=== PATIENT | male | born 1950 | race Caucasian/White ===

== ENCOUNTER 2019-04-17 01:26 | Day surgery (SDC) | payer MEDICARE, SELFPAY ==
[2019-04-17] VITALS (7 sets, daily range): BP systolic 110–191; BP diastolic 62–79; PULSE 57–65; RESP 12–18; TEMP 36.8–37.1; O2SAT 96–99; BMI 32.8
--- NOTE | 2019-04-17 09:14 | SUR.PREOP ---
[id number] Patient arrives with spouse for RASHI with Anesthesia with Dr. Portillo. Oriented to unit, procedure explained, questions answered. Vs obtained, IV started, labs sent, consent signed. Will monitor.
[2019-04-17 09:28] LABS: Hematocrit 43.1 % (42.0-52.0); Hemoglobin 14.1 g/dL (14.0-18.0); Mean Corpuscular HGB Conc 32.7 g/dl (32-36); Mean Corpuscular Volume 88.5 fl (80-100); Mean Platelet Volume 10.2 fl (7.4-10.4); Platelet Count Result 213 k/mm3 (150-375); Red Blood Count 4.87 M/mm3 (4.6-6.20); Red Cell Distribution Width 13.3 % (11.5-14.5); White Blood Count 6.4 K/mm3 (4.5-10.0)
[2019-04-17 09:38] LABS: INR 0.9; Prothrombin Time 12.3 Seconds (11.1-14.7)
[2019-04-17 09:42] LABS: Blood Urea Nitrogen 14 mg/dL (9-20); Calcium 9.2 mg/dL (8.4-10.2); Carbon Dioxide 25 mmol/L (22-30); Chloride 102 mmol/L (98-107); Estimated Glomerular Filt Rate > 60; Glucose 91 mg/dL (75-110); Potassium 3.9 mmol/L (3.4-5.0); Sodium 137 mmol/L (137-145)
--- NOTE | 2019-04-17 09:42 | WPDANESEPPF ---
Anes - Initial Pre Proc Eval Procedure: Operation Date: 04/17/19 08:30 Proposed Procedures p Trans Esophageal Echo - Agustin Portillo MD Date/Time: 04/17/19 09:42 Surgeon: Agustin Portillo MD Pre Op Diagnosis: Aortic stenosis Patient Data Age: 69 Gender: M Height: Weight: Allergies Allergy/AdvReac Type Severity Reaction Status Date / Time clidinium AdvReac Hallucinati Verified 04/03/19 12:16 [From Librax (with ng clidinium)] niacin AdvReac Other Verified 04/03/19 12:16 Pwmiayr-Frj-Pnj Reductase AdvReac Muscle Pain Verified 04/16/19 11:39 Inhibitor Home Medications Medication Instructions Recorded Confirmed Type aspirin 81 mg tablet,delayed 81 mg PO DAILY 01/23/19 04/16/19 History release loratadine 10 mg capsule 10 mg PO DAILY 01/23/19 04/16/19 History doxycycline hyclate 100 mg capsule 100 mg PO BID #60 cap 03/21/19 04/16/19 Rx icosapent ethyl 1 gram capsule 2 gm PO BID 04/01/19 04/16/19 History lisinopril 10 mg tablet 10 mg PO DAILY 04/01/19 04/16/19 History metoprolol tartrate 25 mg tablet 12.5 mg PO BID tablet 04/01/19 04/16/19 History levothyroxine 50 mcg tablet See Rx Instructions PO .COMPLEX 04/03/19 04/16/19 History evolocumab [Repatha SureClick] 140 mg SUBCUT [id number] 04/16/19 04/16/19 History finasteride 5 mg PO DAILY 04/16/19 04/16/19 History lutein 20 mg PO DAILY 04/16/19 04/16/19 History Laboratory Tests 04/17/19 04/17/19 04/17/19 09:23 09:23 09:23 WBC 6.4 K/mm3 K/mm3 (4.5-10.0) RBC 4.87 M/mm3 M/mm3 (4.6-6.20) Hgb 14.1 g/dL g/dL (14.0-18.0) Hct 43.1 % % (42.0-52.0) MCV 88.5 fl fl (80-100) MCH 29.0 pg pg (26-34) MCHC 32.7 g/dl g/dl (32-36) RDW 13.3 % % (11.5-14.5) Plt Count 213 k/mm3 k/mm3 (150-375) MPV 10.2 fl fl (7.4-10.4) PT 12.3 Seconds Seconds (11.1-14.7) INR 0.9 Sodium Pending Potassium Pending Chloride Pending Carbon Dioxide Pending BUN Pending Creatinine Pending Estim Creat Clear Calc Pending Estimated GFR Pending Glucose Pending Calcium Pending Patient hx anesthesia problems: none Family hx anesthesia problems: none PMFSH Past Medical History Medical History (Updated 04/17/19 @ 09:46 by Santiago Christiansen MD) FLORENCE-inhibitor cough Acne rosacea Anxiety Aortic valve stenosis 1.2 cm2 Atherosclerotic heart disease of [place] coronary artery without angina pectoris BPH (benign prostatic hyperplasia) CAD (coronary artery disease) History of actinic keratoses History of seborrheic keratosis Hypercholesterolemia Hypertension, essential, benign Hypothyroidism Sleep apnea wears CPAP Surgical History Surgical History (Updated 04/17/19 @ 09:46 by Santiago Christiansen MD) Hx of cardiac catheterization S/P CABG (coronary artery bypass graft) Social History Social History Smoking status: Former smoker Second hand tobacco smoke exposure: No Smoking end date: 03/14/01 Alcohol intake: never Gender identity (if verbalized by the patient): Male Anes - Eval Final PreProcedure Day of Procedure 04/17/19 09:42 Patient weight: obese Heart: regular rate and rhythm Lungs: clear to auscultation and normal air movement Airway: Mallampati scale class II Neurological: alert and oriented Last oral intake: >/= 8 hours ASA classification: IV Emergent: no Anesthetic plan: proceed Anesthesia type and monitoring: general GIVS Informed Consent: The patient's anesthetic plan and its attendant risks and benefits were discussed with the patient/family/POA. Questions were solicited and answers provided to the satisfaction of the patient/family/POA.
--- NOTE | 2019-04-17 10:29 | WPDMODSED ---
Moderate Sedation Note-Pt Data Patient Data Diagnosis: Aortic stenosis Present Complaint: Aortic stenosis Procedure to be performed/Plan: Multiplanar transesophageal echocardiography with pulse wave and color flow Doppler Allergies Allergy/AdvReac Type Severity Reaction Status Date / Time clidinium AdvReac Hallucinati Verified 04/17/19 09:51 [From Librax (with ng clidinium)] niacin AdvReac Other Verified 04/17/19 09:51 Vrnhjxl-Oeq-Jpv Reductase AdvReac Muscle Pain Verified 04/17/19 09:51 Inhibitor Home Medications Medication Instructions Recorded Confirmed Type aspirin 81 mg tablet,delayed 81 mg PO DAILY 01/23/19 04/16/19 History release loratadine 10 mg capsule 10 mg PO DAILY 01/23/19 04/16/19 History doxycycline hyclate 100 mg capsule 100 mg PO BID #60 cap 03/21/19 04/16/19 Rx icosapent ethyl 1 gram capsule 2 gm PO BID 04/01/19 04/16/19 History lisinopril 10 mg tablet 10 mg PO DAILY 04/01/19 04/16/19 History metoprolol tartrate 25 mg tablet 12.5 mg PO BID tablet 04/01/19 04/16/19 History levothyroxine 50 mcg tablet See Rx Instructions PO .COMPLEX 04/03/19 04/16/19 History evolocumab [Repharsha Keith] 140 mg SUBCUT [id number] 04/16/19 04/16/19 History finasteride 5 mg PO DAILY 04/16/19 04/16/19 History lutein 20 mg PO DAILY 04/16/19 04/16/19 History Current Medications: Active Medications Fentanyl Citrate (Sublimaze) 25 mcg IV PUSH Q2M PRN PRN Reason: Pain Lactated Ringer's (Lr - Lactated Ringers Iv) 1,000 mls @ 30 mls/hr IV CONT .Q24H SACHIN Lactated Ringer's (Lr - Lactated Ringers Iv) 1,000 mls @ 30 mls/hr IV CONT .Q24H SACHIN Ondansetron HCl (Zofran Inj) 4 mg IV PUSH ONCE PRN PRN Reason: Nausea Sedation/Anesthesia: No previous sedation/anesthesia problems (including family history). [facility]LY [facility], [facility] Past Medical History Medical History FLORENCE-inhibitor cough Acne rosacea Anxiety Aortic valve stenosis 1.2 cm2 Atherosclerotic heart disease of [place] coronary artery without angina pectoris BPH (benign prostatic hyperplasia) CAD (coronary artery disease) History of actinic keratoses History of seborrheic keratosis Hypercholesterolemia Hypertension, essential, benign Hypothyroidism Sleep apnea wears CPAP Surgical History Surgical History Hx of cardiac catheterization S/P CABG (coronary artery bypass graft) Social History Social History Smoking status: Former smoker Second hand tobacco smoke exposure: No Smoking end date: 03/14/01 Alcohol intake: never Gender identity (if verbalized by the patient): Male Mod Sed Physical Exam Physical Exam Pre Procedural Exam: Normal: Appearance, Eyes, Ears, Nose, Neck, Throat, Airway, Lungs, Heart Size, Heart Rate, Heart Rhythm, Neuro Exam, Extremities and Skin Hours since solid foods: 12 Hours since liquid intake: 12 Internal Medicine - PN: Obj Da Vital Signs Vital Signs: Vital Signs - 24 hr 04/17/19 09:15 Temperature 37.1 C Pulse Rate 65 Respiratory Rate 18 Blood Pressure 191/67 H Pulse Oximetry 99 Meds/Results Medications: Active Medications Generic Name Dose Route Start Last Admin Trade Name Safia PRN Reason Stop Dose Admin Fentanyl Citrate 25 mcg 04/17/19 09:47 Sublimaze IV PUSH Q2M PRN Pain Lactated Ringer's 1,000 mls @ 30 mls/hr 04/17/19 09:50 Lr - Lactated Ringers Iv IV CONT .Q24H SACHIN Lactated Ringer's 1,000 mls @ 30 mls/hr 04/17/19 09:50 Lr - Lactated Ringers Iv IV CONT .Q24H SACHIN Ondansetron HCl 4 mg 04/17/19 09:47 Zofran Inj IV PUSH ONCE PRN Nausea Labs CBC & Chem 7: 04/17/19 09:23 04/17/19 09:23 Labs: Laboratory Results - last 24 hr 04/17/19 04/17/19 04/17/19 09:23 09:23 09:23 WBC 6.4 RBC 4.87 Hgb 14.1 Hct 43.1 MCV 88.5 MCH 29.0 MCH
--- NOTE | 2019-04-17 10:55 | WPDTEECHO ---
RASHI TransEsophageal Echocardiogram Date of procedure: 04/17/19 Procedure Type: Date of service: 04/17/2019 Multiplanar transesophageal echocardiography with color flow Doppler Agitated saline study Diagnosis: Aortic stenosis Indications: Aortic stenosis Image Quality: Good After discussing the risks benefits and alternatives of the procedure the patient agreeable via verbal and written informed consent. Risks discussed included esophageal rupture perforation, , adverse reaction to anesthesia, bleeding, pain, infection, sore throat. Anesthesia was provided by the Anesthesia Department. Procedure start time 10:39 a.m. Procedure stop time 10:49 a.m. Complications: None Blood loss: None Findings: Normal left ventricular size and function. Normal right ventricular size and function. Moderate left atrial enlargement. Mild mitral regurgitation with mild mitral annular calcification. Tricuspid valve is normal with mild tricuspid regurgitation. Pulmonic valve is not well visualized. Aortic root is measured 3.2 cm. There is no pericardial effusion. Mild atherosclerotic disease is seen within the aorta itself. Atrial septum is intact without color flow or agitated saline evidence of shunting. The aortic valve is trileaflet and moderately calcified. Partial fusion of the non coronary cusp to the left coronary cusp. Averaged planimetered aortic valve area of 1.2 centimeter squared. Trace to mild aortic insufficiency. Conclusions: 1. Normal left ventricular size and function 2. Moderate left atrial enlargement Three mild mitral regurgitation 4. Mild tricuspid regurgitation 5. Moderate aortic stenosis with planimetered aortic valve area 1.2 centimeters squared 6. Intact atrial septum with normal agitated saline study
--- NOTE | 2019-04-17 11:15 | SUR.PHASEII ---
RETURNED TO [facility] S/P RASHI W/ ANESTHESIA W/ DR. ROMAN. PHASE II WAS STARTED WHILE IN PACU, CONTINUES AT THIS TIME IN [facility]. AWAKE, ALERT, SLIGHTLY DROWSY. DENIES PAIN OR SOB. ON ROOM AIR. AT BEDSIDE. DR. ROMAN HAS BEEN BY TO UPDATE . WILL CONTINUE TO MONITOR.
--- NOTE | 2019-04-17 11:40 | SUR.PHASEII ---
FULLY AWAKE AND ALERT. VSS. REPORTS NO DIFFICULTY SWALLOWING SALIVA AND NO NUMBNESS IN MOUTH OR THROAT. ICE CHIPS AND SIPS GIVEN; TAKEN WITHOUT DIFFICULTY.
--- NOTE | 2019-04-17 12:25 | SUR.PREOP ---
HAS EATEN JELLO AND PUDDING WITHOUT DIFFICULTY. DR. ROMAN HERE TO SEE PT AND . OK'D FOR DISCHARGE HOME.
--- NOTE | 2019-04-17 12:55 | SUR.PHASEII ---
IV SITE HAS BEEN DISCONTINUED AND PT. IS DRESSED FOR DISCHARGE HOME. REVIEWED ALL DISCHARGE INSTRUCTIONS AND FOLLOW UP CARE W/ PT AND . ALL QUESTIONS ANSWERED AND BOTH VOICED UNDERSTANDING OF INSTRUCTIONS. DISCHARGED HOME, OUT VIA WC W/ ALL PERSONAL BELONGINGS AND DISCHARGE INSTRUCTIONS TO 'S WAITING CAR. STEADY GAIT, VOICES NO C/O.
== END 2019-04-17 12:55 | disposition home or self-care (01) ==
PROVIDERS: PCP Family Medicine; Visit Provider Internal Medicine Cardiovascular Disease
PROC: (CPT 93312; principal; 2019-04-17 08:30)
DX: I35.0 Nonrheumatic aortic (valve) stenosis (principal); I34.0 Nonrheumatic mitral (valve) insufficiency; I36.1 Nonrheumatic tricuspid (valve) insufficiency; I10 Essential (primary) hypertension; I25.10 Atherosclerotic heart disease of native coronary artery without angina pectoris; E78.00 Pure hypercholesterolemia, unspecified; E03.9 Hypothyroidism, unspecified; G47.33 Obstructive sleep apnea (adult) (pediatric); Z95.1 Presence of aortocoronary bypass graft; Z79.82 Long term (current) use of aspirin; Z87.891 Personal history of nicotine dependence; N40.0 Benign prostatic hyperplasia without lower urinary tract symptoms; F41.9 Anxiety disorder, unspecified; E66.9 Obesity, unspecified; Z68.32 Body mass index [BMI] 32.0-32.9, adult
CPT/HCPCS: 36415; 80048; 85027; 85610; 93312; 93320; 93325; J7040

== ENCOUNTER 2019-10-25 16:33 | Outpatient (CLI) | payer MEDICARE, SELFPAY ==
--- NOTE | ~2019-10-25 | CT_ITS ---
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 TECHNIQUE: Spiral CT of the neck was performed following intravenous injection of 75 mL Omnipaque 350 . Axial, coronal and sagittal images were reviewed. The dose-length product (DLP) for this examinat ion was 507.24 mGy-cm. The exposure was tailored according to patient size (auto mA exposure control ), and iterative reconstruction (ASIR) was used as additional dose reduction technique. There is no prior study for comparison. FINDINGS: Dense metallic artifact from dental fillings. The thyroid gland is unremarkable. The sub mandibular and parotid glands are symmetric. There is no cervical lymphadenopathy. There are no ma sses identified. The superior mediastinum is unremarkable. The airway is unremarkable. Parapha ryngeal and pre-glottic fat planes are preserved. There is mild right carotid arterial sclerosis w ithout stenosis. Patient has had bilateral ocular lens surgery. Minimal mucoperiosteal thickening. Lung apices unremarkable. There is cervical spondylosis. IMPRESSION: No cervical lymphadenopathy. Unremarkable airway Reviewed, dictated and finalized at location G.
[2019-10-25 17:59] LABS: Estimated Glomerular Filt Rate > 60
== END 2019-10-25 16:34 | disposition home or self-care (01) ==
LOC: ANHIMG 16:34
PROVIDERS: PCP Family Medicine; Visit Provider Otolaryngology
DX: D02.0 Carcinoma in situ of larynx (principal)
CPT/HCPCS: 36415; 70491; Q9967

== ENCOUNTER → 2020-06-07 01:50 | Outpatient (CLI) | payer MEDICARE, SELFPAY ==
[2020-06-07 20:23] LABS: SARS-CoV-2 RNA PCR Negative
== END ==
PROVIDERS: PCP Family Medicine; Visit Provider Internal Medicine Cardiovascular Disease
DX: Z01.812 Encounter for preprocedural laboratory examination (principal); Z20.822 Contact with and (suspected) exposure to COVID-19
CPT/HCPCS: C9803; U0003; U0005

== ENCOUNTER 2020-06-10 00:46 | Day surgery (SDC) | payer MEDICARE, SELFPAY ==
[2020-06-09 13:48] VITALS: BMI 34.2
[2020-06-10] VITALS (20 sets, daily range): BP systolic 126–183; BP diastolic 52–97; PULSE 54–77; RESP 12–18; TEMP 36.4–36.8; O2SAT 98–100; BMI 36.1
--- NOTE | 2020-06-10 09:17 | WPDMODSED ---
Moderate Sedation Note-Pt Data Patient Data Allergies Allergy/AdvReac Type Severity Reaction Status Date / Time niacin AdvReac Severe Flushing Verified 05/01/20 09:07 clidinium AdvReac Hallucinati Verified 05/01/20 09:07 [From LibrFourandhalf (with ng clidinium)] Gjmaoxk-Oey-Bhp Reductase AdvReac Muscle Pain Verified 05/01/20 09:07 Inhibitor Home Medications Medication Instructions Recorded Confirmed Type aspirin 81 mg tablet,delayed 81 mg PO DAILY 01/23/19 06/09/20 History release icosapent ethyl 1 gram capsule 2 gm PO BID 04/01/19 06/09/20 History lisinopril 10 mg tablet 10 mg PO DAILY 04/01/19 06/09/20 History Repatha SureClick 140 mg SUBCUT [id number] 04/16/19 06/09/20 History finasteride 5 mg PO DAILY 04/16/19 06/09/20 History loratadine 10 mg tablet 10 mg PO DAILY 10/18/19 06/09/20 History metoprolol tartrate 25 mg tablet 25 mg PO BID tablet 10/18/19 06/09/20 History levothyroxine 50 mcg tablet See Rx Instructions PO .COMPLEX 12/17/19 06/09/20 Rx #110 tablet doxycycline monohydrate 100 mg See Rx Instructions .ROUTE 04/03/20 06/09/20 Rx tablet .COMPLEX #180 tablet vit C,Q-Yy-sjupo-lutein-zeaxan 1 tablet PO BID 06/09/20 06/09/20 History [PreserVision AREDS-2] Current Medications: Active Medications Sodium Chloride (Normal Saline Iv) 500 mls @ 100 mls/hr IV CONT .Q5H SACHIN Sedation/Anesthesia: No previous sedation/anesthesia problems (including family history). [facility] Past Medical History Medical History FLORENCE-inhibitor cough Acne rosacea Anxiety Aortic valve stenosis 1.2 cm2 Atherosclerotic heart disease of [place] coronary artery without angina pectoris BPH (benign prostatic hyperplasia) CAD (coronary artery disease) Colonic polyp colonoscopy 2017 Complex sleep apnea syndrome History of actinic keratoses History of seborrheic keratosis Hypercholesterolemia Hypertension, essential, benign Hypothyroidism Sleep apnea wears CPAP Surgical History Surgical History Hx of cardiac catheterization S/P CABG (coronary artery bypass graft) Family History Family History Other Adopted Social History Social History Smoking packs per day: 2 Smoking cigarettes per day: 40.0 Years smoked: 32 Smoking pack-years: 64.00 Smoking status: Former smoker Tobacco type: cigarettes Second hand tobacco smoke exposure: No Smoking end date: 03/14/01 Additional smoking assessment comments: Quit 18 years ago Alcohol intake: never Substance use: never Substance use type: does not use Living arrangements: with family Gender identity (if verbalized by the patient): Male Sexual Orientation (if Verbalized by the Patient): Straight or Heterosexual Spiritual care concerns: No Mod Sed Physical Exam Physical Exam Pre Procedural Exam: Normal: Airway Hours since solid foods: 10 Hours since liquid intake: 10 Internal Medicine - PN: Obj Da Vital Signs Vital Signs: Vital Signs - 24 hr 06/10/20 08:03 Temperature 36.6 C Pulse Rate 55 L Respiratory Rate 12 Blood Pressure 156/57 H Pulse Oximetry 99 Meds/Results Medications: Active Medications Generic Name Dose Route Start Last Admin Trade Name Freq PRN Reason Stop Dose Admin Sodium Chloride 500 mls @ 100 mls/hr 06/10/20 07:00 Normal Saline Iv IV CONT .Q5H [facility] ASA Classification/Sedation ASA Classification/Sedation Risks: Risks, benefits and alternatives explained and patient/family accepted plan for sedation. Patient re-evaluated immediately prior to sedation.
--- NOTE | 2020-06-10 10:24 | WPDCARDPROC ---
Cardiac Cath Procedure Note Date of procedure:: 06/10/20 Performing physician:: Jorge Ulloa MD Procedure Procedure note:: RIGHT AND LEFT HEART CATHETERIZATION, CORONARY ANGIOGRAM, BYPASS GRAFT ANGIOGRAPHY REPORT DATE OF PROCEDURE: 06/10/2020 INDICATION FOR PROCEDURE: Aortic stenosis BRIEF CLINICAL HISTORY: 70-year-old male with CAD, history of CABG x2 ( in situ HALE to LAD, SVG to OM on 05/03/2016); aortic stenosis, hypertension, dyslipidemia, obesity, PER on CPAP . Patient was referred by Dr. Portillo for right and left heart catheterization in the setting of dyspnea on exertion and aortic stenosis. Benefits and risks of the procedure were discussed with the patient in depth, and informed consent was obtained prior to the procedure. Risks of the procedure include but are not limited to vascular complications including groin hematoma, retroperitoneal bleed, vessel perforation; periprocedural MN, cardiac arrhythmias, stroke, contrast induced nephropathy, cardiac arrhythmias, pulmonary hemorrhage and . After discussing all the benefits, risks and alternatives, patient was willing to proceed with the procedure. PROCEDURES PERFORMED: 1. Right heart catheterization with hemodynamic assessment 2. Left heart catheterization- Selective left and right coronary angiogram; left ventriculogram and hemodynamic assessment 3. Selective bypass graft angiography 4. Selective left subclavian angiogram 5. Moderate sedation-CPT code 18168 MODERATE SEDATION: Midazolam 1 mg; fentanyl 25 mcg; Start time 0922 , Stop time 1010 ; Total xnyy-hc-iile time 48 minutes; Danielle Sánchez RN was trained observer for moderate sedation. ACCESS SITE: Right common femoral artery and vein PROCEDURE NOTE: After obtaining informed consent, patient was brought to catheterization lab and prepped and draped in a usual sterile manner. After local anesthesia with lidocaine, right common femoral artery access was taken with micropuncture needle followed by insertion of a 6 [place] 45 cm sheath. Right common femoral venous access was taken with micropuncture needle followed by insertion of a 7 [place] sheath. Right heart catheterization was performed using C [place]osalinda catheter. Pressures were measured in the right atrium, right ventricle, pulmonary artery, pulmonary capillary. O2 saturations were taken from the femoral artery, right atrium, right ventricle, pulmonary artery. Cardiac output was measured using Reilly's method. After completion of right heart catheterization, attention was shifted to the left heart catheterization. Selective left and right coronary angiogram was performed using 5 [place] JL4 and JR4 catheters respectively. Orthogonal views were taken. Next, JR4 catheter was used for selective bypass graft angiography of the SVG to OM. The same catheter was withdrawn, and was monitored towards the left subclavian artery, selective left subclavian angiogram and nonselective HALE angiogram was performed. Next, the stenotic aortic valve was crossed using 5 [place] AL1 catheter over 035 straight tip Glidewire. The catheter was advanced in the LV cavity. The Glidewire was taken out and it was exchanged with a long exchange J-wire. Next, the AL1 catheter was replaced with the 5 [place] pigtail catheter. Simultaneous gradients were measured in the LV and in the distal thoracic aorta through the long 6 [place] sheath. The dual lumen Fredo catheter is on recall and not available at this time for simultaneous transaortic gradients. LV pressure measurement was performed. After this, left ventriculogram was performed. The catheter was flushed again, and gradient across the aortic valve was again measured on the pullback of the catheter. The long 6 [place] sheath was exchanged with a short 6 [place] sheath and was secured in place. Both arterial and venous sheaths will be taken out in the lab[employer] pie [employer] holding area, manual pressure was used for local hemostasis. Patient
[2020-06-10] MEDS: hydrALAZINE HCL 20 MG/ML VIAL 10 MG IV PUSH (11:23)
== END 2020-06-10 19:05 | disposition home or self-care (01) ==
PROVIDERS: PCP Family Medicine; Visit Provider Internal Medicine Cardiovascular Disease
PROC: 4A023N8 Measurement of Cardiac Sampling and Pressure, Bilateral, Percutaneous Approach (ICD-10-PCS; CPT 93461; principal; 2020-06-10 08:30)
DX: I35.0 Nonrheumatic aortic (valve) stenosis (principal); I25.10 Atherosclerotic heart disease of native coronary artery without angina pectoris; R06.09 Other forms of dyspnea; I27.20 Pulmonary hypertension, unspecified; I10 Essential (primary) hypertension; E78.5 Hyperlipidemia, unspecified; G47.33 Obstructive sleep apnea (adult) (pediatric); E03.9 Hypothyroidism, unspecified; N40.0 Benign prostatic hyperplasia without lower urinary tract symptoms; F41.9 Anxiety disorder, unspecified; Z95.1 Presence of aortocoronary bypass graft; E66.9 Obesity, unspecified; Z68.36 Body mass index [BMI] 36.0-36.9, adult; Z79.82 Long term (current) use of aspirin; Z87.891 Personal history of nicotine dependence
CPT/HCPCS: 93461; C1769; C1887; C1894; C9803; J0360; J0461; J1644; J2250; J3010; J7040; U0003; U0005

== ENCOUNTER 2020-07-23 07:03 | Outpatient (CLI) | payer MEDICARE, SELFPAY ==
[2020-07-23 07:44] LABS: Cholesterol 92 mg/dL (0-200); HDL Direct 32 mg/dL; Triglycerides 383 mg/dL (<150)
[2020-07-23 08:01] LABS: LDL Cholesterol Direct < 30 mg/dL
== END 2020-07-23 07:04 | disposition home or self-care (01) ==
PROVIDERS: PCP Family Medicine; Visit Provider Internal Medicine Cardiovascular Disease
DX: E78.5 Hyperlipidemia, unspecified (principal)
CPT/HCPCS: 36415; 80061; 99212; G0463

== ENCOUNTER → 2020-07-28 01:03 | Outpatient (CLI) | payer MEDICARE, SELFPAY ==
[2020-07-28 18:48] LABS: SARS-CoV-2 RNA PCR Negative
== END ==
PROVIDERS: PCP Family Medicine; Visit Provider Internal Medicine Gastroenterology
DX: Z01.812 Encounter for preprocedural laboratory examination (principal); Z20.822 Contact with and (suspected) exposure to COVID-19
CPT/HCPCS: C9803; U0003; U0005

== ENCOUNTER 2020-07-31 01:53 | Day surgery (SDC) | payer MEDICARE, SELFPAY ==
[2020-07-22 13:03] VITALS: BMI 34.4
[2020-07-31 07:22] VITALS: BP 146/75; PULSE 68; RESP 18; TEMP 36.2; O2SAT 98; BMI 34.4
[2020-07-31] MEDS: LACTATED RINGERS 1,000 ML 150 ML IV CONT (07:27)
--- NOTE | 2020-07-31 08:01 | WPDGICN ---
GI Consult Note Consult date/time: 07/31/20 08:01 HPI: Reason for visit is colonoscopy. This very pleasant gentleman seen in consultation request of the primary physician. Impression: Screening and surveillance colonoscopy. The patient has a history of adenomatous colon polyps. Coronary artery disease status post coronary bypass grafting x2 vessels. Aortic stenosis. Acne rosacea. Anxiety. PER. HTN. HLD. Hypothyroidism. BPH. Obesity. Recommendation: Colonoscopy. History: This very pleasant gentleman has a history of adenomatous colon polyps. He is here for screening and surveillance. GI review systems negative. Physical examination: General: very pleasant patient in no acute distress. HEENT: Head was normocephalic sclerae is clear mouth without masses neck was supple. Heart: Rate rhythm regular without S3 or S4.A systolic murmur 2nd right intercostal space radiating to the carotids. Lungs: CTA. Abdomen: Soft with no guarding or rigidity. Bowel sounds were active. Neurologic: Cranial nerves 2 through 12 intact. No focal defects. No clonus. Musculoskeletal system: Revealed no joint tenderness or swelling no muscle atrophy. Extremities: Reveal no significant edema. Skin: Warm and dry with normal turgor. Mental status: intact. Patient is alert and oriented. Review of Systems Review of Systems: All systems reviewed & are unremarkable except as noted in HPI and below PMFSH Past Medical History Medical History FLORENCE-inhibitor cough Acne rosacea Anxiety Aortic valve stenosis 1.2 cm2 Atherosclerotic heart disease of [place] coronary artery without angina pectoris BPH (benign prostatic hyperplasia) CAD (coronary artery disease) Colonic polyp colonoscopy 2018 Complex sleep apnea syndrome History of actinic keratoses History of seborrheic keratosis Hypercholesterolemia Hypertension, essential, benign Hypothyroidism Sleep apnea wears CPAP Surgical History Surgical History Hx of cardiac catheterization S/P CABG (coronary artery bypass graft) Family History Family History Other Adopted Social History Social History Smoking packs per day: 2 Smoking cigarettes per day: 40.0 Years smoked: 32 Smoking pack-years: 64.00 Smoking status: Former smoker Tobacco type: cigarettes Second hand tobacco smoke exposure: No Smoking end date: 03/14/01 Additional smoking assessment comments: Quit 18 years ago Alcohol intake: former Substance use: never Substance use type: does not use Living arrangements: with family Gender identity (if verbalized by the patient): Male Spiritual care concerns: No Meds Home Medications and Allergies Home Medications Medication Instructions Recorded Confirmed Type aspirin 81 mg tablet,delayed 81 mg PO DAILY 01/23/19 07/25/20 History release icosapent ethyl 1 gram capsule 2 gm PO BID 04/01/19 07/25/20 History lisinopril 10 mg tablet 10 mg PO DAILY 04/01/19 07/25/20 History Repatha SureClick 140 mg SUBCUT [id number] 04/16/19 07/25/20 History finasteride 5 mg PO DAILY 04/16/19 07/25/20 History loratadine 10 mg tablet 10 mg PO DAILY 10/18/19 07/25/20 History metoprolol tartrate 25 mg tablet 25 mg PO BID tablet 10/18/19 07/25/20 History levothyroxine 50 mcg tablet See Rx Instructions PO .COMPLEX 12/17/19 07/25/20 Rx #110 tablet doxycycline monohydrate 100 mg See Rx Instructions .ROUTE 04/03/20 07/25/20 Rx tablet .COMPLEX #180 tablet PreserVision AREDS-2 1 tablet PO BID 06/09/20 07/25/20 History Allergies Allergy/AdvReac Type Severity Reaction Status Date / Time niacin AdvReac Severe Flushing Verified 07/31/20 07:20 clidinium AdvReac Hallucinati Verified 07/31/20 07:20 [From [employer] (wi
--- NOTE | 2020-07-31 08:16 | WPDANESEPPF ---
Anes - Initial Pre Proc Eval Procedure: Operation Date: 07/31/20 08:30 Proposed Procedures p Screening Colonoscopy - Joe Guadalupe DO Date/Time: 07/31/20 08:16 Surgeon: Joe Guadalupe DO Pre Op Diagnosis: neoplasm screening Patient Data Age: 70 Gender: M Height: 5 ft 8 in Weight: 102.9 kg Last Vital Signs Temp 97.2 F L 07/31/20 07:22 Pulse 68 07/31/20 07:22 Resp 18 07/31/20 07:22 BP 146/75 H 07/31/20 07:22 Pulse Ox 98 07/31/20 07:22 Allergies Allergy/AdvReac Type Severity Reaction Status Date / Time niacin AdvReac Severe Flushing Verified 07/31/20 07:20 clidinium AdvReac Hallucinati Verified 07/31/20 07:20 [From Librax (with ng clidinium)] Yzmagll-Urz-Tou Reductase AdvReac Muscle Pain Verified 07/31/20 07:20 Inhibitor Home Medications Medication Instructions Recorded Confirmed Type aspirin 81 mg tablet,delayed 81 mg PO DAILY 01/23/19 07/25/20 History release icosapent ethyl 1 gram capsule 2 gm PO BID 04/01/19 07/25/20 History lisinopril 10 mg tablet 10 mg PO DAILY 04/01/19 07/25/20 History Repatha SureClick 140 mg SUBCUT [id number] 04/16/19 07/25/20 History finasteride 5 mg PO DAILY 04/16/19 07/25/20 History loratadine 10 mg tablet 10 mg PO DAILY 10/18/19 07/25/20 History metoprolol tartrate 25 mg tablet 25 mg PO BID tablet 10/18/19 07/25/20 History levothyroxine 50 mcg tablet See Rx Instructions PO .COMPLEX 12/17/19 07/25/20 Rx #110 tablet doxycycline monohydrate 100 mg See Rx Instructions .ROUTE 04/03/20 07/25/20 Rx tablet .COMPLEX #180 tablet PreserVision AREDS-2 1 tablet PO BID 06/09/20 07/25/20 History Patient hx anesthesia problems: none Family hx anesthesia problems: none PMFSH Past Medical History Medical History FLORENCE-inhibitor cough Acne rosacea Anxiety Aortic valve stenosis 1.2 cm2 Atherosclerotic heart disease of [place] coronary artery without angina pectoris BPH (benign prostatic hyperplasia) CAD (coronary artery disease) Colonic polyp colonoscopy 2018 Complex sleep apnea syndrome History of actinic keratoses History of seborrheic keratosis Hypercholesterolemia Hypertension, essential, benign Hypothyroidism Sleep apnea wears CPAP Surgical History Surgical History Hx of cardiac catheterization S/P CABG (coronary artery bypass graft) Family History Family History Other Adopted Social History Social History Smoking packs per day: 2 Smoking cigarettes per day: 40.0 Years smoked: 32 Smoking pack-years: 64.00 Smoking status: Former smoker Tobacco type: cigarettes Second hand tobacco smoke exposure: No Smoking end date: 03/14/01 Additional smoking assessment comments: Quit 18 years ago Alcohol intake: former Substance use: never Substance use type: does not use Living arrangements: with family Gender identity (if verbalized by the patient): Male Spiritual care concerns: No Anes - Eval Final PreProcedure Day of Procedure 07/31/20 08:16 Patient weight: obese Heart: regular rate and rhythm Lungs: clear to auscultation Airway: Mallampati scale class III Neurological: alert and oriented Last oral intake: >/= 8 hours ASA classification: IV Emergent: no Anesthetic plan: proceed Anesthesia type and monitoring: general GIVS and standard monitoring Informed Consent: The patient's anesthetic plan and its attendant risks and benefits were discussed with the patient/family/POA. Questions were solicited and answers provided to the satisfaction of the patient/family/POA.
[2020-07-31 09:34] VITALS: BP 111/49; PULSE 63; RESP 17; O2SAT 100
[2020-07-31 09:44] VITALS: BP 111/43; PULSE 53; RESP 17; O2SAT 100
[2020-07-31 09:54] VITALS: BP 134/67; PULSE 54; RESP 19; O2SAT 99
== END 2020-07-31 10:12 | disposition home or self-care (01) ==
PROVIDERS: PCP Family Medicine; Visit Provider Internal Medicine Gastroenterology
PROC: 0DJD8ZZ Inspection of Lower Intestinal Tract, Via Natural or Artificial Opening Endoscopic (ICD-10-PCS; CPT 45378; principal; 2020-07-31 08:30)
DX: Z12.11 Encounter for screening for malignant neoplasm of colon (principal); K55.20 Angiodysplasia of colon without hemorrhage; Z86.010 Personal history of colon polyps; I10 Essential (primary) hypertension; I25.10 Atherosclerotic heart disease of native coronary artery without angina pectoris; E78.5 Hyperlipidemia, unspecified; E03.9 Hypothyroidism, unspecified; N40.0 Benign prostatic hyperplasia without lower urinary tract symptoms; I35.0 Nonrheumatic aortic (valve) stenosis; E66.9 Obesity, unspecified; Z68.34 Body mass index [BMI] 34.0-34.9, adult; Z95.1 Presence of aortocoronary bypass graft; F41.9 Anxiety disorder, unspecified; G47.39 Other sleep apnea; Z87.891 Personal history of nicotine dependence; Z79.82 Long term (current) use of aspirin
CPT/HCPCS: 45381; 45388; C9803; J7120; U0003; U0005

== ENCOUNTER 2020-08-06 08:54 | Outpatient (CLI) | payer MEDICARE, SELFPAY ==
--- NOTE | ~2020-08-06 | CT_ITS ---
EXAMINATION: CT soft tissue neck w con DATE: 08/06/2020 09:57 INDICATION: Left neck lump. TECHNIQUE: Computed tomography (CT) of the neck was performed with 75 mL Omnipaque-350 intravenous co ntrast. Automated exposure control and iterative reconstruction technique were employed. The dose-harpreet gth product was 616.11 mGy-cm. COMPARISON: CT neck 10/25/2019 FINDINGS: There are likely changes of bilateral ocular lens replacement surgeries. There is a skin ma rker on the left. There are no pathologically enlarged lymph nodes. There is plaque in the proximal i nternal carotid arteries with less than 50% stenosis relative to normal distal artery lumen diameters . There are changes of coronary artery bypass grafting. There is fat stranding in the neck at the lev el of the glottis that may be changes of radiation therapy. There is moderate cervical spondylosis. IMPRESSION: 1. No lymphadenopathy or abnormal mass. Reviewed, dictated and finalized at location B.
[2020-08-06 10:02] LABS: Estimated Glomerular Filt Rate > 60
== END 2020-08-06 08:55 | disposition home or self-care (01) ==
PROVIDERS: PCP Family Medicine; Visit Provider Radiology Radiation Oncology
DX: C32.0 Malignant neoplasm of glottis (principal)
CPT/HCPCS: 70491; Q9967

== ENCOUNTER 2020-09-10 08:03 | Outpatient (CLI) | payer MEDICARE, SELFPAY ==
[2020-09-10 10:54] LABS: Free T4 Free Thyroxine 0.72 ng/mL (0.78-2.19)
[2020-09-10 11:22] LABS: Hepatitis C Virus Antibody Negative (Negative)
[2020-09-10 12:07] LABS: Alanine Aminotransferase 23 U/L (4-50); Albumin Level 4.1 g/dL (3.5-5.1); Alkaline Phosphatase 71 U/L (38-126); Anion Gap 9 mmol/L (8-16); Aspartate Amino Transferase 30 U/L (17-59); Bilirubin,Total 0.3 mg/dL (0.2-1.3); Blood Urea Nitrogen 14 mg/dL (9-20); Carbon Dioxide 26 mmol/L (22-30); Chloride 103 mmol/L (98-107); Estimated Glomerular Filt Rate > 60; Glucose 101 mg/dL (75-110); Potassium 4.3 mmol/L (3.4-5.0); Sodium 138 mmol/L (137-145)
[2020-09-10 12:46] LABS: Prostate Specific Antigen 0.3 ng/mL (< OR = 4.0)
== END 2020-09-10 08:04 | disposition home or self-care (01) ==
LOC: ANHVASCINF 08:10
PROVIDERS: PCP Family Medicine; Visit Provider Family Medicine
DX: Z12.5 Encounter for screening for malignant neoplasm of prostate (principal); I10 Essential (primary) hypertension; E03.9 Hypothyroidism, unspecified; Z11.59 Encounter for screening for other viral diseases
CPT/HCPCS: 36415; 80053; 84153; 84439; 84443; 86803; 99212; G0103; G0463

== ENCOUNTER 2020-11-03 10:22 | Outpatient (CLI) | payer MEDICARE, SELFPAY ==
[2020-11-03 11:12] LABS: Anion Gap 7 mmol/L (8-16); Blood Urea Nitrogen 19 mg/dL (9-20); Calcium 9.1 mg/dL (8.4-10.2); Carbon Dioxide 23 mmol/L (22-30); Chloride 105 mmol/L (98-107); Estimated Glomerular Filt Rate > 60; Glucose 106 mg/dL (65-110); Potassium 4.2 mmol/L (3.4-5.0); Sodium 135 mmol/L (137-145)
== END 2020-11-03 10:23 | disposition home or self-care (01) ==
PROVIDERS: PCP Family Medicine; Visit Provider Internal Medicine Cardiovascular Disease
DX: R60.0 Localized edema (principal)
CPT/HCPCS: 36415; 80048; 99212; G0463

== ENCOUNTER 2021-01-26 07:10 | Outpatient (CLI) | payer MEDICARE, SELFPAY ==
[2021-01-26 07:54] LABS: Cholesterol 81 mg/dL (0-200); HDL Direct 27 mg/dL; Triglycerides 330 mg/dL (<150)
[2021-01-26 08:18] LABS: LDL Cholesterol Direct < 30 mg/dL
== END 2021-01-26 07:11 | disposition home or self-care (01) ==
LOC: ANHLAB 07:13
PROVIDERS: PCP Family Medicine; Visit Provider Internal Medicine Cardiovascular Disease
DX: E78.5 Hyperlipidemia, unspecified (principal)
CPT/HCPCS: 36415; 80061; 99212; G0463

== ENCOUNTER 2021-03-17 07:32 | Outpatient (CLI) | payer MEDICARE, SELFPAY ==
[2021-03-17 08:25] LABS: Alanine Aminotransferase 24 U/L (4-50); Alkaline Phosphatase 71 U/L (38-126); Anion Gap 9 mmol/L (8-16); Aspartate Amino Transferase 29 U/L (17-59); Bilirubin,Total 0.5 mg/dL (0.2-1.3); Blood Urea Nitrogen 16 mg/dL (9-20); Carbon Dioxide 25 mmol/L (22-30); Chloride 101 mmol/L (98-107); Estimated Glomerular Filt Rate > 60; Glucose 104 mg/dL (65-110); Potassium 4.1 mmol/L (3.4-5.0); Sodium 135 mmol/L (137-145)
[2021-03-17 10:23] LABS: Free T4 Free Thyroxine 0.81 ng/mL (0.78-2.19)
== END 2021-03-17 07:33 | disposition home or self-care (01) ==
PROVIDERS: PCP Family Medicine; Visit Provider Physician Assistant
DX: I10 Essential (primary) hypertension (principal); E03.9 Hypothyroidism, unspecified
CPT/HCPCS: 36415; 80053; 84439; 84443; 99212; G0463

== ENCOUNTER → 2021-05-18 00:38 | Outpatient (CLI) | payer MEDICARE, SELFPAY ==
[2021-05-18 17:08] LABS: SARS-CoV-2 RNA PCR Negative
== END ==
PROVIDERS: PCP Family Medicine; Visit Provider Internal Medicine Cardiovascular Disease
DX: Z20.822 Contact with and (suspected) exposure to COVID-19 (principal)
CPT/HCPCS: C9803; U0003; U0005

== ENCOUNTER 2021-05-18 07:04 | Outpatient (CLI) | payer MEDICARE, SELFPAY ==
[2021-05-18 07:37] LABS: Basophils Absolute Auto 0.1 K/mm3 (0.0-0.1); Basophils Percent Auto 1.4 % (0.2-1.2); Eosinophils Absolute Auto 0.3 K/mm3 (0-0.3); Eosinophils Percent Auto 5.2 % (0-4.4); Hematocrit 39.3 % (42.0-52.0); Immature Granulocyte Absolute 0.05 K/mm3 (0.00-0.031); Lymphocytes Absolute Auto 1.83 K/mm3 (0.9-3.2); Lymphocytes Percent Auto 35.5 % (18.3-44.2); Mean Corpuscular HGB Conc 33.1 g/dl (32-36); Mean Corpuscular Hemoglobin 30.2 pg (26-34); Mean Corpuscular Volume 91.2 fl (80-100); Mean Platelet Volume 9.3 fl (7.4-10.4); Monocytes Absolute Auto 0.5 K/mm3 (0.1-0.6); Monocytes Percent Auto 10.5 % (2.6-8.5); Neutrophils Absolute Auto 2.4 K/mm3 (1.3-6.7); Neutrophils Percent Auto 46.4 % (45.5-73.1); Platelet Count Result 193 k/mm3 (150-375); Red Blood Count 4.31 M/mm3 (4.6-6.20); White Blood Count 5.2 K/mm3 (4.5-10.0)
[2021-05-18 07:47] LABS: Alanine Aminotransferase 23 U/L (4-50); Alkaline Phosphatase 76 U/L (38-126); Anion Gap 7 mmol/L (8-16); Aspartate Amino Transferase 29 U/L (17-59); Bilirubin,Total 0.2 mg/dL (0.2-1.3); Blood Urea Nitrogen 16 mg/dL (9-20); Calcium 8.4 mg/dL (8.4-10.2); Carbon Dioxide 26 mmol/L (22-30); Chloride 104 mmol/L (98-107); Estimated Glomerular Filt Rate > 60; Glucose 102 mg/dL (65-110); Sodium 137 mmol/L (137-145)
== END 2021-05-18 07:05 | disposition home or self-care (01) ==
LOC: ANHLAB 07:08
PROVIDERS: PCP Family Medicine; Visit Provider Internal Medicine Cardiovascular Disease
DX: I35.0 Nonrheumatic aortic (valve) stenosis (principal)
CPT/HCPCS: 36415; 80053; 85025; 99212; C9803; G0463; U0003; U0005

== ENCOUNTER 2021-06-23 07:01 | Outpatient (CLI) | payer MEDICARE, SELFPAY ==
[2021-06-23 08:14] LABS: Alanine Aminotransferase 25 U/L (4-50); Albumin Level 3.8 g/dL (3.5-5.1); Alkaline Phosphatase 72 U/L (38-126); Anion Gap 6 mmol/L (8-16); Aspartate Amino Transferase 29 U/L (17-59); Bilirubin,Total 0.5 mg/dL (0.2-1.3); Blood Urea Nitrogen 13 mg/dL (9-20); Calcium 8.6 mg/dL (8.4-10.2); Carbon Dioxide 25 mmol/L (22-30); Chloride 104 mmol/L (98-107); Estimated Glomerular Filt Rate > 60; Glucose 108 mg/dL (65-110); Sodium 135 mmol/L (137-145)
[2021-06-23 10:20] LABS: Free T4 Free Thyroxine Reflex 0.87 ng/dL (0.78-2.19)
[2021-06-23 11:04] LABS: Total Triiodothyronine (T3) 1.23 NG/ML (0.97-1.69)
== END 2021-06-23 07:02 | disposition home or self-care (01) ==
LOC: ANHLAB 07:04
PROVIDERS: PCP Family Medicine; Visit Provider Family Medicine
DX: E03.9 Hypothyroidism, unspecified (principal); I10 Essential (primary) hypertension
CPT/HCPCS: 36415; 80053; 84439; 84443; 84480; 99212; G0463

== ENCOUNTER 2021-07-30 07:37 | Outpatient (CLI) | payer MEDICARE, SELFPAY ==
[2021-07-30 08:18] LABS: Hematocrit 36.7 % (42.0-52.0); Hemoglobin 12.3 g/dL (14.0-18.0); Mean Corpuscular HGB Conc 33.5 g/dl (32-36); Mean Corpuscular Hemoglobin 29.6 pg (26-34); Mean Corpuscular Volume 88.2 fl (80-100); Mean Platelet Volume 8.9 fl (7.4-10.4); Platelet Count Result 267 k/mm3 (150-375); Red Blood Count 4.16 M/mm3 (4.6-6.20); Red Cell Distribution Width 13.7 % (11.5-14.5); White Blood Count 5.6 K/mm3 (4.5-10.0)
[2021-07-30 08:32] LABS: Anion Gap 7 mmol/L (8-16); Blood Urea Nitrogen 20 mg/dL (9-20); Calcium 8.8 mg/dL (8.4-10.2); Carbon Dioxide 23 mmol/L (22-30); Chloride 102 mmol/L (98-107); Estimated Glomerular Filt Rate > 60; Glucose 108 mg/dL (65-110); Potassium 4.2 mmol/L (3.4-5.0); Sodium 132 mmol/L (137-145)
[2021-07-30 10:33] LABS: Free T4 Free Thyroxine Reflex 0.81 ng/dL (0.78-2.19)
[2021-07-30 11:48] LABS: Total Triiodothyronine (T3) 1.31 NG/ML (0.97-1.69)
== END 2021-07-30 07:38 | disposition home or self-care (01) ==
PROVIDERS: PCP Family Medicine; Referring Provider Internal Medicine Cardiovascular Disease; Visit Provider Family Medicine
DX: E03.9 Hypothyroidism, unspecified (principal); R53.83 Other fatigue; R60.9 Edema, unspecified; R20.0 Anesthesia of skin; Z95.2 Presence of prosthetic heart valve; R20.2 Paresthesia of skin; R60.0 Localized edema
CPT/HCPCS: 36415; 80048; 82607; 84439; 84443; 84480; 85027; 99212; G0463

== ENCOUNTER → 2021-08-03 14:19 | Outpatient (CLI) | payer MEDICARE, SELFPAY ==
--- NOTE | ~2021-08-03 | XR_ITS ---
EXAM: XR lumbar spine min 4V DATE: 08/03/2021 15:09 HISTORY: M54.50 - Low back pain, unspecified . COMPARISON: None available. FINDINGS: 5 nonrib-bearing lumbar-type vertebral bodies. Pedicles intact. Normal vertebral body alig nment. Vertebral body heights preserved. Disc spaces maintained, with multilevel trace marginal osteo phytosis. Multilevel facet sclerosis. No pars defect atherosclerotic abdominal aortic calcifications with fusiform dilation at the bifurcation. No fracture or dislocation. IMPRESSION: Possible distal aortic or proximal common iliac aneurysm, recommend ultrasound of the abd ominal aorta for further characterization. Multilevel moderate facet arthropathy and mild multilevel degenerative disc change. Reviewed, dictated and finalized at location K. IMPRESSION: Possible distal aortic or proximal common iliac aneurysm, recommend ultrasound of the abdominal aorta for further characterization. Multilevel mod erate facet arthropathy and mild multilevel degenerative disc change.
== END ==
PROVIDERS: PCP Family Medicine; Visit Provider Family Medicine
DX: M54.50 Low back pain, unspecified (principal); R93.89 Abnormal findings on diagnostic imaging of other specified body structures
CPT/HCPCS: 72110

== ENCOUNTER → 2021-08-05 07:54 | Outpatient (CLI) | payer MEDICARE, SELFPAY ==
--- NOTE | ~2021-08-05 | US_ITS ---
EXAMINATION: US aorta DATE: 08/05/2021 08:43 CDT INDICATION: Abnormal findings on x-ray. TECHNIQUE: Grayscale, color Doppler, and pulsed Doppler images of the aorta and common iliac arteries were obtained. COMPARISON: Lumbar spine series dated 08/03/2021. FINDINGS: There is atherosclerosis of the aorta. The proximal aorta measures 2 cm greatest sagittal dimension. The mid aorta measures 2 cm greatest sagittal dimension. The distal aorta measures 2.2 cm greatest sa gittal dimension. The right common internal iliac artery measures 1 cm. The left common iliac artery measures 1 cm. IMPRESSION: 1. Atherosclerosis of the aorta without evidence for aneurysm. Reviewed, dictated and finalized at location A.
== END ==
PROVIDERS: PCP Family Medicine; Visit Provider Family Medicine
DX: R93.89 Abnormal findings on diagnostic imaging of other specified body structures (principal); I70.0 Atherosclerosis of aorta
CPT/HCPCS: 76775

== ENCOUNTER 2021-08-26 13:00 | Outpatient (CLI) | payer MEDICARE, SELFPAY ==
--- NOTE | ~2021-08-26 | US_ITS ---
EXAMINATION: US carotid duplex BI DATE: 08/26/2021 14:33 INDICATION: Right carotid bruit TECHNIQUE: Grayscale, color Doppler, and pulsed Doppler images of the cervical carotid arteries were obtained. The degree of vessel stenosis is placed in one of the following categories: normal, <50%, 5 0-69%, >=70% but less than near-occlusion, near-occlusion, or total occlusion. Note that percent sten osis relative to normal distal artery lumen diameter is indirectly measured from velocity measurement s as described by Jair, et al. Radiology 2003; 229:340-346. COMPARISON: 03/31/[address] dated 08/06/2020 FINDINGS: RIGHT: The right common carotid artery (CCA) peak systolic velocity (PSV) is 129 cm/s. The right internal ca rotid artery (ICA) PSV is 177 cm/s. The right ICA end-diastolic velocity (EDV) is 19 cm/s. The right ICA/CCA PSV ratio is 1.4. Grayscale and color Doppler images yield an estimate of 50-69% diameter red uction from plaque in the ICA. The external carotid artery (ECA) PSV is 314 cm/s. There is antegrade flow in the right vertebral artery. LEFT: The left CCA PSV is 83 cm/s. The left ICA PSV is 95 cm/s. The left ICA EDV is 16 cm/s. The left ICA/C CA PSV ratio is 1.1. Grayscale and color Doppler images yield an estimate of <50% diameter reduction from plaque in the ICA. The ECA PSV is 110 cm/s. There is antegrade flow in the left vertebral artery . IMPRESSION: 1. 50-69% stenosis in the right internal carotid artery. 2. <50% stenosis in the left internal carotid artery. Reviewed, dictated and finalized at location A.
== END 2021-08-26 13:01 | disposition home or self-care (01) ==
PROVIDERS: PCP Family Medicine; Visit Provider Internal Medicine Cardiovascular Disease
DX: R09.89 Other specified symptoms and signs involving the circulatory and respiratory systems (principal); I65.23 Occlusion and stenosis of bilateral carotid arteries
CPT/HCPCS: 93880

== ENCOUNTER 2021-10-20 07:36 | Outpatient (CLI) | payer MEDICARE, SELFPAY ==
[2021-10-20 08:17] LABS: Hematocrit 38.6 % (42.0-52.0); Hemoglobin 12.6 g/dL (14.0-18.0); Mean Corpuscular HGB Conc 32.6 g/dl (32-36); Mean Corpuscular Volume 88.9 fl (80-100); Mean Platelet Volume 9.6 fl (7.4-10.4); Platelet Count Result 191 k/mm3 (150-375); Red Blood Count 4.34 M/mm3 (4.6-6.20); Red Cell Distribution Width 14.4 % (11.5-14.5); White Blood Count 4.6 K/mm3 (4.5-10.0)
[2021-10-20 08:31] LABS: Anion Gap 11 mmol/L (8-16); Blood Urea Nitrogen 14 mg/dL (9-20); Calcium 8.9 mg/dL (8.4-10.2); Carbon Dioxide 22 mmol/L (22-30); Chloride 102 mmol/L (98-107); Estimated Glomerular Filt Rate > 60; Glucose 108 mg/dL (65-110); Sodium 135 mmol/L (137-145)
[2021-10-20 09:01] LABS: Prostate Specific Antigen 0.2 ng/mL (< OR = 4.0)
[2021-10-20 09:05] LABS: Iron 63 ug/dL (49-181)
[2021-10-20 09:16] LABS: Percent Iron Saturation 17 % (20-50)
[2021-10-20 11:41] LABS: Total Triiodothyronine (T3) 1.22 NG/ML (0.97-1.69)
== END 2021-10-20 07:37 | disposition home or self-care (01) ==
PROVIDERS: PCP Family Medicine; Referring Provider Urology; Visit Provider Family Medicine
DX: R53.83 Other fatigue (principal); D64.9 Anemia, unspecified; N40.1 Benign prostatic hyperplasia with lower urinary tract symptoms
CPT/HCPCS: 36415; 80048; 82728; 83540; 83550; 84153; 84439; 84443; 84480; 85027; 99212; G0463

== ENCOUNTER 2021-11-12 08:30 | Outpatient (RCR) | payer MEDICARE, SELFPAY | END 2021-11-12 09:20 | disposition home or self-care (01) | LOC: ANHCPREHAB 08:30 | PROVIDERS: PCP Family Medicine; Visit Provider Internal Medicine Cardiovascular Disease | DX: Z95.2 Presence of prosthetic heart valve (principal) | CPT/HCPCS: 93798 ==

== ENCOUNTER 2021-11-18 07:46 | Outpatient (CLI) | payer MEDICARE, SELFPAY ==
[2021-11-18 08:44] LABS: Cholesterol 93 mg/dL (0-200); HDL Direct 28 mg/dL; Triglycerides 410 mg/dL (<150)
[2021-11-18 09:07] LABS: LDL Cholesterol Direct < 30 mg/dL
== END 2021-11-18 07:47 | disposition home or self-care (01) ==
LOC: ANHLAB 07:48
PROVIDERS: PCP Family Medicine; Visit Provider Internal Medicine Cardiovascular Disease
DX: I25.118 Atherosclerotic heart disease of native coronary artery with other forms of angina pectoris (principal); E78.5 Hyperlipidemia, unspecified
CPT/HCPCS: 36415; 80061; 99212; G0463

== ENCOUNTER 2022-02-02 07:35 | Outpatient (CLI) | payer MEDICARE, SELFPAY ==
[2022-02-02 08:19] LABS: Basophils Absolute Auto 0.1 K/mm3 (0.0-0.1); Basophils Percent Auto 1.4 % (0.2-1.2); Eosinophils Absolute Auto 0.2 K/mm3 (0-0.3); Eosinophils Percent Auto 4.6 % (0-4.4); Immature Granulocyte Absolute 0.04 K/mm3 (0.00-0.031); Immature Granulocyte Percent A 0.8 % (0-0.5); Immature Reticulocyte Fraction 19.3 % (3.0-15.9); Lymphocytes Absolute Auto 1.58 K/mm3 (0.9-3.2); Lymphocytes Percent Auto 31.8 % (18.3-44.2); Mean Corpuscular HGB Conc 33.3 g/dl (32-36); Mean Corpuscular Hemoglobin 29.3 pg (26-34); Mean Platelet Volume 9.8 fl (7.4-10.4); Monocytes Absolute Auto 0.5 K/mm3 (0.1-0.6); Monocytes Percent Auto 9.9 % (2.6-8.5); Neutrophils Absolute Auto 2.6 K/mm3 (1.3-6.7); Neutrophils Percent Auto 51.5 % (45.5-73.1); Platelet Count Result 191 k/mm3 (150-375); Red Blood Count 4.43 M/mm3 (4.6-6.20); Red Cell Distribution Width 14.1 % (11.5-14.5); Reticulocyte Hemoglobin Conten 35.4 pg (28.2-35.7); Reticulocyte Percent 2.29 % (0.7-4.3)
[2022-02-02 08:33] LABS: Alanine Aminotransferase 24 U/L (6-50); Albumin Level 4.1 g/dL (3.5-5.1); Alkaline Phosphatase 80 U/L (38-126); Anion Gap 9 mmol/L (8-16); Aspartate Amino Transferase 30 U/L (17-59); Bilirubin,Total 0.5 mg/dL (0.2-1.3); Blood Urea Nitrogen 14 mg/dL (9-20); Calcium 8.7 mg/dL (8.4-10.2); Carbon Dioxide 25 mmol/L (22-30); Chloride 102 mmol/L (98-107); Estimated Glomerular Filt Rate > 60; Glucose 94 mg/dL (65-110); Potassium 4.2 mmol/L (3.4-5.0); Sodium 136 mmol/L (137-145)
[2022-02-02 08:47] LABS: Iron 62 ug/dL (49-181)
[2022-02-02 08:57] LABS: Percent Iron Saturation 17 % (20-50)
[2022-02-02 11:48] LABS: Free T4 Free Thyroxine Reflex 1.03 ng/dL (0.78-2.19)
[2022-02-02 12:30] LABS: Total Triiodothyronine (T3) 1.25 NG/ML (0.97-1.69)
== END 2022-02-02 07:36 | disposition home or self-care (01) ==
LOC: ANHLAB 07:37
PROVIDERS: PCP Family Medicine; Visit Provider Family Medicine
DX: D64.9 Anemia, unspecified (principal); E03.9 Hypothyroidism, unspecified; E78.00 Pure hypercholesterolemia, unspecified; R60.9 Edema, unspecified
CPT/HCPCS: 36415; 80053; 82728; 83540; 83550; 84439; 84443; 84480; 85025; 85046; 99212; G0463

== ENCOUNTER 2022-07-13 07:32 | Outpatient (CLI) | payer MEDICARE, SELFPAY ==
[2022-07-13 08:02] LABS: Basophils Absolute Auto 0.1 K/mm3 (0.0-0.1); Basophils Percent Auto 1.9 % (0.2-1.2); Eosinophils Absolute Auto 0.2 K/mm3 (0-0.3); Eosinophils Percent Auto 4.8 % (0-4.4); Hematocrit 40.4 % (42.0-52.0); Hemoglobin 13.5 g/dL (14.0-18.0); Immature Granulocyte Absolute 0.05 K/mm3 (0.00-0.031); Immature Granulocyte Percent A 1.1 % (0-0.5); Lymphocytes Absolute Auto 1.86 K/mm3 (0.9-3.2); Lymphocytes Percent Auto 39.2 % (18.3-44.2); Mean Corpuscular HGB Conc 33.4 g/dl (32-36); Mean Corpuscular Hemoglobin 29.7 pg (26-34); Mean Platelet Volume 9.3 fl (7.4-10.4); Monocytes Absolute Auto 0.5 K/mm3 (0.1-0.6); Monocytes Percent Auto 10.9 % (2.6-8.5); Neutrophils Percent Auto 42.1 % (45.5-73.1); Platelet Count Result 184 k/mm3 (150-375); Red Blood Count 4.54 M/mm3 (4.6-6.20); Red Cell Distribution Width 13.6 % (11.5-14.5); White Blood Count 4.8 K/mm3 (4.5-10.0)
[2022-07-13 08:10] LABS: Alanine Aminotransferase 28 U/L (6-50); Albumin Level 4.2 g/dL (3.5-5.1); Alkaline Phosphatase 74 U/L (38-126); Anion Gap 4 mmol/L (8-16); Aspartate Amino Transferase 32 U/L (17-59); Bilirubin,Total 0.5 mg/dL (0.2-1.3); Blood Urea Nitrogen 15 mg/dL (9-20); Calcium 8.7 mg/dL (8.4-10.2); Carbon Dioxide 28 mmol/L (22-30); Chloride 103 mmol/L (98-107); Cholesterol 91 mg/dL (0-200); Estimated Glomerular Filt Rate > 60; Glucose 102 mg/dL (65-110); HDL Direct 28 mg/dL; Potassium 4.1 mmol/L (3.4-5.0); Sodium 135 mmol/L (137-145); Triglycerides 419 mg/dL (<150)
[2022-07-13 08:15] LABS: Iron 75 ug/dL (49-181)
[2022-07-13 08:26] LABS: Percent Iron Saturation 22 % (20-50)
[2022-07-13 08:30] LABS: LDL Cholesterol Direct < 30 mg/dL
[2022-07-13 09:39] LABS: Free T4 Free Thyroxine Reflex 0.75 ng/dL (0.78-2.19)
== END 2022-07-13 07:33 | disposition home or self-care (01) ==
PROVIDERS: PCP Family Medicine; Visit Provider Family Medicine
DX: D64.9 Anemia, unspecified (principal); E78.00 Pure hypercholesterolemia, unspecified; R53.83 Other fatigue; E78.2 Mixed hyperlipidemia; E03.9 Hypothyroidism, unspecified
CPT/HCPCS: 36415; 80053; 80061; 82728; 83540; 83550; 84439; 84443; 85025; 99212; G0463

== ENCOUNTER 2022-09-20 09:44 | Outpatient (CLI) | payer MEDICARE, SELFPAY ==
[2022-09-20 11:27] LABS: NT Pro B Type Natriuretic Pept 349 pg/mL (19.9-100)
== END 2022-09-20 09:45 | disposition home or self-care (01) ==
PROVIDERS: PCP Family Medicine; Visit Provider Nurse Practitioner Adult Health
DX: I51.89 Other ill-defined heart diseases (principal)
CPT/HCPCS: 36415; 83880; 99212; G0463

== ENCOUNTER 2022-10-12 07:31 | Outpatient (CLI) | payer MEDICARE, SELFPAY ==
[2022-10-12 08:13] LABS: Anion Gap 8 mmol/L (8-16); Blood Urea Nitrogen 18 mg/dL (9-20); Carbon Dioxide 26 mmol/L (22-30); Chloride 101 mmol/L (98-107); Estimated Glomerular Filt Rate > 60; Glucose 107 mg/dL (65-110); Potassium 4.3 mmol/L (3.4-5.0); Sodium 135 mmol/L (137-145)
== END 2022-10-12 07:32 | disposition home or self-care (01) ==
PROVIDERS: PCP Family Medicine; Referring Provider Nurse Practitioner Adult Health; Visit Provider Family Medicine
DX: E03.9 Hypothyroidism, unspecified (principal); R53.83 Other fatigue; I10 Essential (primary) hypertension; I25.118 Atherosclerotic heart disease of native coronary artery with other forms of angina pectoris; R60.0 Localized edema
CPT/HCPCS: 36415; 80048; 84443; 99212; G0463

== ENCOUNTER 2022-11-16 08:30 | Outpatient (CLI) | payer MEDICARE, SELFPAY ==
--- NOTE | ~2022-11-16 | US_ITS ---
EXAMINATION: US carotid duplex BI DATE: 11/16/2022 09:53 INDICATION: Right carotid artery stenosis TECHNIQUE: Grayscale, color Doppler, and pulsed Doppler images of the cervical carotid arteries were obtained. The degree of vessel stenosis is placed in one of the following categories: normal, <50%, 5 0-69%, >=70% but less than near-occlusion, near-occlusion, or total occlusion. Note that percent sten osis relative to normal distal artery lumen diameter is indirectly measured from velocity measurement s as described by Jair, et al. Radiology 2003; 229:340-346. COMPARISON: None. FINDINGS: RIGHT: The right common carotid artery (CCA) peak systolic velocity (PSV) is 113 cm/s. The right internal ca rotid artery (ICA) PSV is 141 cm/s. The right ICA end-diastolic velocity (EDV) is 20 cm/s. The right ICA/CCA PSV ratio is 1.2. Grayscale and color Doppler images yield an estimate of 50-69% diameter red uction from plaque in the ICA. The external carotid artery (ECA) PSV is 163 cm/s. There is antegrade flow in the right vertebral artery. LEFT: The left CCA PSV is 147 cm/s. The left ICA PSV is 105 cm/s. The left ICA EDV is 27 cm/s. The left ICA /CCA PSV ratio is 0.7. Grayscale and color Doppler images yield an estimate of <50% diameter reductio n from plaque in the ICA. The ECA PSV is 127 cm/s. There is antegrade flow in the left vertebral steve ry. IMPRESSION: 1. 50-69% stenosis in the right internal carotid artery. 2. <50% stenosis in the left internal carotid artery. Reviewed, dictated and finalized at location A.
== END 2022-11-16 08:31 | disposition home or self-care (01) ==
PROVIDERS: PCP Family Medicine; Visit Provider Internal Medicine Cardiovascular Disease
DX: I65.23 Occlusion and stenosis of bilateral carotid arteries (principal)
CPT/HCPCS: 93880

== ENCOUNTER 2022-12-14 07:36 | Outpatient (CLI) | payer MEDICARE, SELFPAY ==
[2022-12-14 08:18] LABS: Anion Gap 7 mmol/L (8-16); Blood Urea Nitrogen 16 mg/dL (9-20); Calcium 8.9 mg/dL (8.4-10.2); Carbon Dioxide 26 mmol/L (22-30); Chloride 102 mmol/L (98-107); Estimated Glomerular Filt Rate > 60; Glucose 105 mg/dL (65-110); Potassium 4.1 mmol/L (3.4-5.0); Sodium 135 mmol/L (137-145)
[2022-12-14 16:15] LABS: Prostate Specific Antigen 0.2 ng/mL (< OR = 4.0)
== END 2022-12-14 07:37 | disposition home or self-care (01) ==
PROVIDERS: PCP Family Medicine; Referring Provider Physician Assistant; Visit Provider Family Medicine
DX: E87.5 Hyperkalemia (principal); Z12.5 Encounter for screening for malignant neoplasm of prostate
CPT/HCPCS: 36415; 80048; 84153; 99212; G0103; G0463

== ENCOUNTER 2023-01-18 07:48 | Outpatient (CLI) | payer MEDICARE, SELFPAY ==
[2023-01-18 08:31] LABS: Alanine Aminotransferase 28 U/L (6-50); Albumin Level 4.1 g/dL (3.5-5.1); Alkaline Phosphatase 71 U/L (38-126); Anion Gap 9 mmol/L (8-16); Aspartate Amino Transferase 31 U/L (17-59); Bilirubin,Total 0.5 mg/dL (0.2-1.3); Blood Urea Nitrogen 16 mg/dL (9-20); Calcium 8.7 mg/dL (8.4-10.2); Carbon Dioxide 22 mmol/L (22-30); Chloride 103 mmol/L (98-107); Cholesterol 96 mg/dL (0-200); Estimated Glomerular Filt Rate > 60; Glucose 103 mg/dL (65-110); HDL Direct 27 mg/dL; Hematocrit 38.9 % (42.0-52.0); Hemoglobin 12.6 g/dL (14.0-18.0); Mean Corpuscular HGB Conc 32.4 g/dl (32-36); Mean Corpuscular Hemoglobin 29.4 pg (26-34); Mean Corpuscular Volume 90.7 fl (80-100); Mean Platelet Volume 9.9 fl (7.4-10.4); Platelet Count Result 203 k/mm3 (150-375); Potassium 4.3 mmol/L (3.4-5.0); Red Blood Count 4.29 M/mm3 (4.6-6.20); Sodium 134 mmol/L (137-145); Triglycerides 396 mg/dL (<150); White Blood Count 3.9 K/mm3 (4.5-10.0)
[2023-01-18 08:34] LABS: Iron 81 ug/dL (49-181)
[2023-01-18 08:44] LABS: Percent Iron Saturation 25 % (20-50)
[2023-01-18 08:53] LABS: LDL Cholesterol Direct < 30 mg/dL
== END 2023-01-18 07:49 | disposition home or self-care (01) ==
LOC: ANHLAB 07:50
PROVIDERS: PCP Family Medicine; Visit Provider Family Medicine
DX: E03.9 Hypothyroidism, unspecified (principal); I10 Essential (primary) hypertension; E78.2 Mixed hyperlipidemia; E61.1 Iron deficiency
CPT/HCPCS: 36415; 80053; 80061; 82728; 83540; 83550; 84443; 85027; 99212; G0463

== ENCOUNTER 2023-04-17 15:32 | Emergency (ER) | payer MEDICARE, SELFPAY ==
[2023-04-17] VITALS (9 sets, daily range): BP systolic 106–150; BP diastolic 49–88; PULSE 72–80; RESP 14–20; TEMP 36.8; O2SAT 95–100
--- NOTE | ~2023-04-17 | XR_ITS ---
EXAMINATION: XR chest 2V Exam Date/Time: 04/17/2023 15:55 BACTERIOLOGY PROFESSOR HISTORY: Persistent cough Comparison: 01/27/2010. RESULT: Lines, tubes, and devices: Intact sternotomy wires. Valve replacement. Lungs and pleura: Mild diffuse reticular and reticulonodular opacities with cuffing. Cardiomediastinal silhouette: Stable. Other: No acute osseous or upper abdominal finding. IMPRESSION: Respiratory bronchiolitis and/or interstitial edema. Reviewed, dictated and finalized at location K. ERIOLOGY PROFESSOR
--- NOTE | 2023-04-17 17:17 | ED.URI ---
HPI - URI/Sore Throat General Chief Complaint: Upper Respiratory Infection Stated Complaint: cough Time Seen by Provider: 04/17/23 16:50 History of Present Illness HPI Narrative: Patient is a 73-year-old male with history of double vessel CABG, valve placement here with a cough and chest pain. Patient notes that about 5 days ago he began having a mild cough. It has persistently worsened throughout the week this week. He does note that is intermittently productive. On Tuesday, 2 days ago, he went to his primary care doctor's office and they prescribed him Tesjoseon Donta. They additionally told him that if his cough was not worsening over the next couple of days he could start azithromycin. First dose was taken this morning. He notes that the cough seems to be worsening and it is now associated with significant chest pain with coughing. It is diffuse throughout his chest and it feels as though all of his ribs are breaking . No history of COPD or asthma, was a prior smoker about 20 years ago. He denies any fever or chills. No known sick contacts. Related Data Home Medications Medication Instructions Recorded Confirmed aspirin 81 mg tablet,delayed 81 mg PO DAILY 01/23/19 04/15/23 release (Adult Low Dose Aspirin) finasteride 5 mg tablet 5 mg PO DAILY 04/16/19 04/15/23 loratadine 10 mg tablet (Allergy 10 mg PO DAILY 10/18/19 04/15/23 Relief (loratadine)) metoprolol tartrate 25 mg tablet 25 mg PO BID 10/18/19 04/15/23 vit C 250 mg-vit E 90 mg-zinc 40 1 tablet PO BID 06/09/20 04/15/23 mg-copper 1 ui-bbjtiz-jczrng capsule (PreserVision AREDS-2) alirocumab 75 mg/mL subcutaneous 75 mg subcut Q14D 07/20/22 04/15/23 pen injector (Praluent Pen) icosapent ethyl 1 gram capsule 2 g PO BID 07/20/22 04/15/23 (Vascepa) lisinopril 10 mg tablet 20 mg PO DAILY 07/20/22 04/15/23 furosemide 20 mg tablet 20 mg PO BID 11/04/22 04/15/23 potassium chloride 20 mEq oral 20 meq PO ONCE 11/04/22 04/15/23 packet (Klor-Con) Allergies Allergy/AdvReac Type Severity Reaction Status Date / Time niacin AdvReac Severe Flushing Verified 04/17/23 16:54 clidinium AdvReac Mild Hallucinati Verified 04/17/23 16:54 [From Librax (with ng clidinium)] Dwsvude-YPM-OgN Reductase AdvReac Mild Muscle Pain Verified 04/17/23 16:54 Inhibitor [Qiqhshc-Elc-Yih Reductase Inhibitor] Review of Systems Review of Systems: All systems reviewed & are unremarkable except as noted in HPI and below PMFSH Past Medical History Medical History FLORENCE-inhibitor cough Acne rosacea Anxiety Aortic valve stenosis 1.2 cm2 Atherosclerotic heart disease of [place] coronary artery without angina pectoris AVM (arteriovenous malformation) of colon BPH (benign prostatic hyperplasia) CAD (coronary artery disease) Colonic polyp colonoscopy 2018 Complex sleep apnea syndrome Edema History of actinic keratoses History of seborrheic keratosis Hypercholesterolemia Hypertension, essential, benign Hypothyroidism Sleep apnea wears CPAP Stasis dermatitis Vocal cord cancer RTX Surgical History Surgical History Hx of cardiac catheterization S/P CABG (coronary artery bypass graft) Family History Family History Other Adopted Social History Social History Smoking packs per day: 2 Smoking cigarettes per day: 40.0 Years smoked: 32 Smoking pack-years: 64.00 Smoking status: Former smoker Tobacco type: cigarettes Second hand tobacco smoke exposure: No Smoking end date: 10/27/01 Additional smoking assessment comments: Quit 18 years ago Alcohol intake: never Substance use: never Substance use type: does not use Lack of Transportation: No Lack of Food: Never True Cur
[2023-04-17 17:25] LABS: Influenza A QL RT-PCR Negative (Negative); Influenza B QL RT-PCR Negative (Negative); RSV RNA, RT-PCR Negative (Negative); SARS-CoV-2 RNA PCR Negative (Negative)
--- NOTE | 2023-04-17 17:27 | ECG_ITS ---
Measurements Intervals [place] Rate: 76 P: 71 MO: 180 QRS: -21 QRSD: 164 T: 31 QT: 400 QTc: 452 Interpretive Statements SINUS RHYTHM RIGHT BUNDLE BRANCH BLOCK [120+ ms QRS DURATION, UPRIGHT V1, 40+ ms S IN I/aVL/V4/V5/V6] CONSIDER PREVIOUS iNFERIOR MYOCARDIAL INFARCTION ABNORMAL ECG NO PREVIOUS ECG AVAILABLE FOR COMPARISON Electronically Signed On 04-18-2023 7:37:12 BROADCAST CHIEF ENGINEER by Carlin Roa M.D.
[2023-04-17] MEDS: IPRATROPIUM 0.5 MG/ALBUTEROL SULFATE 2.5 MG AMPUL.NEB 3 ML INHALATION (17:51)
[2023-04-17] MEDS: HYDROcodone/acetaminophen (*CRX) 5-325 MG TABLET 1 TAB PO (17:59)
[2023-04-17 18:06] LABS: Basophils Absolute Auto 0.1 K/mm3 (0.0-0.1); Basophils Percent Auto 0.6 % (0.2-1.2); Eosinophils Absolute Auto 0.1 K/mm3 (0-0.3); Eosinophils Percent Auto 1.6 % (0-4.4); Hematocrit 40.8 % (42.0-52.0); Immature Granulocyte Absolute 0.04 K/mm3 (0.00-0.031); Immature Granulocyte Percent A 0.5 % (0-0.5); Lymphocytes Percent Auto 12.9 % (18.3-44.2); Mean Corpuscular HGB Conc 31.9 g/dl (32-36); Mean Corpuscular Volume 91.1 fl (80-100); Mean Platelet Volume 9.9 fl (7.4-10.4); Monocytes Absolute Auto 0.8 K/mm3 (0.1-0.6); Monocytes Percent Auto 9.8 % (2.6-8.5); Neutrophils Absolute Auto 5.8 K/mm3 (1.3-6.7); Neutrophils Percent Auto 74.6 % (45.5-73.1); Platelet Count Result 177 k/mm3 (150-375); Red Blood Count 4.48 M/mm3 (4.6-6.20); Red Cell Distribution Width 14.2 % (11.5-14.5); White Blood Count 7.7 K/mm3 (4.5-10.0)
[2023-04-17 18:16] LABS: Alanine Aminotransferase 27 U/L (6-50); Albumin Level 4.3 g/dL (3.5-5.1); Alkaline Phosphatase 87 U/L (38-126); Anion Gap 7 mmol/L (8-16); Aspartate Amino Transferase 35 U/L (17-59); Bilirubin,Total 0.5 mg/dL (0.2-1.3); Blood Urea Nitrogen 16 mg/dL (9-20); Calcium 9.1 mg/dL (8.4-10.2); Carbon Dioxide 26 mmol/L (22-30); Chloride 102 mmol/L (98-107); Estimated CRCL calculation 86 ml/min; Estimated Glomerular Filt Rate > 60; Glucose 98 mg/dL (65-110); Potassium 4.5 mmol/L (3.4-5.0); Sodium 135 mmol/L (137-145)
[2023-04-17 18:27] LABS: NT Pro B Type Natriuretic Pept 1030 pg/mL (19.9-100); Troponin I 0.026 ng/mL (0.000-0.034)
== END 2023-04-17 20:00 | disposition home or self-care (01) ==
PROVIDERS: Emergency Provider Student in an Organized Health Care Education/Training Program; PCP Family Medicine
DX: J06.9 Acute upper respiratory infection, unspecified (principal); J40 Bronchitis, not specified as acute or chronic; I25.10 Atherosclerotic heart disease of native coronary artery without angina pectoris; E03.9 Hypothyroidism, unspecified; I10 Essential (primary) hypertension; Z95.1 Presence of aortocoronary bypass graft; Z20.822 Contact with and (suspected) exposure to COVID-19; Z87.891 Personal history of nicotine dependence
CPT/HCPCS: 36415; 71046; 80053; 83880; 84484; 85025; 87637; 93005; 94640; 99284; A9270

== ENCOUNTER 2023-04-26 14:05 | Outpatient (CLI) | payer MEDICARE, SELFPAY ==
--- NOTE | ~2023-04-26 | XR_ITS ---
XR chest 2V DATE: 04/26/2023 14:41 INDICATION: Cough. Bronchitis. TECHNIQUE: PA and lateral views COMPARISON: April 17, 2023 PA and lateral chest FINDINGS: Again noted is postoperative change from sternotomy and cardiac valve repair. Cardiomegaly. There is extensive thoracic and abdominal aortic calcification. No pulmonary infiltrate or consolidation, pleural effusion or pulmonary vascular congestion or pneumo thorax is detected.. Small pleural effusions are suggested. Pulmonary vascularity appears within norm al range. Thoracolumbar dextroscoliosis. Osteopenia. IMPRESSION: Cardiomegaly, aortic atherosclerosis Status post cardiac valve repair Small pleural effusions are suggested Reviewed, dictated and finalized at location L. OGRAPHER PORTRAIT
[2023-04-26 14:36] LABS: Hematocrit 35.5 % (42.0-52.0); Hemoglobin 11.8 g/dL (14.0-18.0); Mean Corpuscular HGB Conc 33.2 g/dl (32-36); Mean Corpuscular Hemoglobin 29.5 pg (26-34); Mean Corpuscular Volume 88.8 fl (80-100); Mean Platelet Volume 8.8 fl (7.4-10.4); Platelet Count Result 346 k/mm3 (150-375); Red Cell Distribution Width 13.9 % (11.5-14.5); White Blood Count 9.9 K/mm3 (4.5-10.0)
[2023-04-26 15:15] LABS: Band Neutrophils Percent 1 % (0-6); Eosinophils Absolute Manual 0.19 K/mm3 (0.02-0.5); Eosinophils Percent Manual 2 % (0-4); Lymphocytes Absolute Manual 0.99 K/mm3 (1.1-4.5); Lymphocytes Percent Manual 10 % (18-44); Metamyelocytes Percent 2 %; Monocytes Absolute Manual 0.39 K/mm3 (0.1-0.90); Monocytes Percent Manual 4 % (3-9); Myelocytes Percent 5 %; Neutrophils Absolute Manual 7.42 K/mm3 (1.3-6.7); Neutrophils Percent Manual 74 % (46-73); Total Cells Counted 100
[2023-04-26 15:16] LABS: Platelet Estimate Adequate (Adequate); Smudge Cells PRESENT
[2023-04-26 15:19] LABS: Anisocytosis 2+ (NORMAL); Macrocytosis 1+ (NORMAL); Microcytosis 1+ (NORMAL); Polychromasia 1+ (NORMAL)
[2023-04-26 15:20] LABS: Schistocytes Rare (NORMAL)
[2023-04-26 15:33] LABS: NT Pro B Type Natriuretic Pept 1040 pg/mL (19.9-100)
[2023-04-26 15:36] LABS: Alanine Aminotransferase 64 U/L (6-50); Albumin Level 3.9 g/dL (3.5-5.1); Alkaline Phosphatase 90 U/L (38-126); Anion Gap 6 mmol/L (8-16); Aspartate Amino Transferase 44 U/L (17-59); Bilirubin,Total 0.5 mg/dL (0.2-1.3); Blood Urea Nitrogen 20 mg/dL (9-20); Calcium 9.2 mg/dL (8.4-10.2); Carbon Dioxide 26 mmol/L (22-30); Chloride 100 mmol/L (98-107); Cholesterol 81 mg/dL (0-200); Estimated Glomerular Filt Rate > 60; Glucose 170 mg/dL (65-110); HDL Direct 28 mg/dL; Sodium 132 mmol/L (137-145); Triglycerides 467 mg/dL (<150)
[2023-04-26 15:41] LABS: LDL Cholesterol Direct < 30 mg/dL
[2023-04-26 16:41] LABS: Iron 62 ug/dL (49-181)
[2023-04-26 16:50] LABS: Percent Iron Saturation 21 % (20-50)
== END 2023-04-26 14:06 | disposition home or self-care (01) ==
PROVIDERS: Physician Assistant Medical; PCP Family Medicine; Visit Provider Family Medicine
DX: D64.9 Anemia, unspecified (principal); E03.9 Hypothyroidism, unspecified; J40 Bronchitis, not specified as acute or chronic; I25.10 Atherosclerotic heart disease of native coronary artery without angina pectoris; I50.9 Heart failure, unspecified; E61.1 Iron deficiency; E78.2 Mixed hyperlipidemia; E87.1 Hypo-osmolality and hyponatremia
CPT/HCPCS: 36415; 71046; 80053; 80061; 82728; 83540; 83550; 83880; 84443; 85025; 99212; G0463

== ENCOUNTER 2023-05-10 11:23 | Outpatient (CLI) | payer MEDICARE, SELFPAY ==
[2023-05-10 11:39] LABS: Basophils Absolute Auto 0.1 K/mm3 (0.0-0.1); Basophils Percent Auto 1.3 % (0.2-1.2); Eosinophils Absolute Auto 0.2 K/mm3 (0-0.3); Eosinophils Percent Auto 4.8 % (0-4.4); Hematocrit 37.4 % (42.0-52.0); Hemoglobin 12.4 g/dL (14.0-18.0); Immature Granulocyte Absolute 0.04 K/mm3 (0.00-0.031); Immature Granulocyte Percent A 0.9 % (0-0.5); Immature Reticulocyte Fraction 12.4 % (3.0-15.9); Lymphocytes Absolute Auto 1.74 K/mm3 (0.9-3.2); Lymphocytes Percent Auto 37.7 % (18.3-44.2); Mean Corpuscular HGB Conc 33.2 g/dl (32-36); Mean Corpuscular Hemoglobin 29.4 pg (26-34); Mean Corpuscular Volume 88.6 fl (80-100); Mean Platelet Volume 8.8 fl (7.4-10.4); Monocytes Absolute Auto 0.5 K/mm3 (0.1-0.6); Monocytes Percent Auto 9.7 % (2.6-8.5); Neutrophils Absolute Auto 2.1 K/mm3 (1.3-6.7); Neutrophils Percent Auto 45.6 % (45.5-73.1); Platelet Count Result 207 k/mm3 (150-375); Red Blood Count 4.22 M/mm3 (4.6-6.20); Red Cell Distribution Width 14.1 % (11.5-14.5); Reticulocyte Hemoglobin Conten 33.5 pg (28.2-35.7); Reticulocyte Percent 1.55 % (0.7-4.3); Reticulocytes Absolute 0.07 M/mm3 (0.02-0.1); White Blood Count 4.6 K/mm3 (4.5-10.0)
[2023-05-10 12:38] LABS: Alanine Aminotransferase 28 U/L (6-50); Albumin Level 4.2 g/dL (3.5-5.1); Alkaline Phosphatase 86 U/L (38-126); Anion Gap 10 mmol/L (8-16); Aspartate Amino Transferase 30 U/L (17-59); Bilirubin,Total 0.5 mg/dL (0.2-1.3); Blood Urea Nitrogen 16 mg/dL (9-20); Calcium 9.5 mg/dL (8.4-10.2); Carbon Dioxide 22 mmol/L (22-30); Chloride 103 mmol/L (98-107); Estimated Glomerular Filt Rate > 60; Glucose 112 mg/dL (65-110); Iron 95 ug/dL (49-181); Lactate Dehydrogenase 207 U/L (120-246); Potassium 4.4 mmol/L (3.4-5.0); Sodium 135 mmol/L (137-145)
[2023-05-10 12:49] LABS: Percent Iron Saturation 29 % (20-50)
[2023-05-10 13:44] LABS: Folic Acid 11.6 ng/mL (2.76->20)
[2023-05-13 08:50] LABS: Methylmalonic Acid 214 nmol/L (87-318)
[2023-05-17 13:57] LABS: Soluble Transferrin Receptor 2.08 mg/L (0.76-1.76)
== END 2023-05-10 11:24 | disposition home or self-care (01) ==
LOC: ANHLAB 11:25
PROVIDERS: PCP Family Medicine; Visit Provider Internal Medicine Hematology & Oncology
DX: D64.9 Anemia, unspecified (principal)
CPT/HCPCS: 36415; 80053; 82607; 82728; 82746; 83540; 83550; 83615; 83921; 84238; 85025; 85046

== ENCOUNTER 2023-05-21 08:07 | Outpatient (CLI) | payer MEDICARE, SELFPAY ==
[2023-05-21 08:47] LABS: Alanine Aminotransferase 25 U/L (6-50); Alkaline Phosphatase 81 U/L (38-126); Anion Gap 2 mmol/L (8-16); Aspartate Amino Transferase 28 U/L (17-59); Bilirubin,Total 0.4 mg/dL (0.2-1.3); Blood Urea Nitrogen 16 mg/dL (9-20); Calcium 9.1 mg/dL (8.4-10.2); Carbon Dioxide 30 mmol/L (22-30); Chloride 104 mmol/L (98-107); Estimated Glomerular Filt Rate > 60; Glucose 107 mg/dL (65-110); Potassium 4.4 mmol/L (3.4-5.0); Sodium 136 mmol/L (137-145)
== END 2023-05-21 08:08 | disposition home or self-care (01) ==
PROVIDERS: PCP Family Medicine; Visit Provider Family Medicine
DX: R79.89 Other specified abnormal findings of blood chemistry (principal); E87.1 Hypo-osmolality and hyponatremia
CPT/HCPCS: 36415; 80053; 99212; G0463

== ENCOUNTER 2023-10-07 10:08 | Outpatient (CLI) | payer MEDICARE, SELFPAY ==
[2023-10-07 10:26] LABS: Basophils Absolute Auto 0.1 K/mm3 (0.0-0.1); Basophils Percent Auto 1.5 % (0.2-1.2); Eosinophils Absolute Auto 0.2 K/mm3 (0-0.3); Eosinophils Percent Auto 2.7 % (0-4.4); Hematocrit 38.4 % (42.0-52.0); Hemoglobin 12.8 g/dL (14.0-18.0); Immature Granulocyte Absolute 0.05 K/mm3 (0.00-0.031); Immature Granulocyte Percent A 0.8 % (0-0.5); Lymphocytes Absolute Auto 1.88 K/mm3 (0.9-3.2); Lymphocytes Percent Auto 28.7 % (18.3-44.2); Mean Corpuscular HGB Conc 33.3 g/dl (32-36); Mean Corpuscular Hemoglobin 29.4 pg (26-34); Mean Corpuscular Volume 88.1 fl (80-100); Mean Platelet Volume 9.1 fl (7.4-10.4); Monocytes Absolute Auto 0.8 K/mm3 (0.1-0.6); Monocytes Percent Auto 11.5 % (2.6-8.5); Neutrophils Absolute Auto 3.6 K/mm3 (1.3-6.7); Neutrophils Percent Auto 54.8 % (45.5-73.1); Platelet Count Result 235 k/mm3 (150-375); Red Blood Count 4.36 M/mm3 (4.6-6.20); Red Cell Distribution Width 14.1 % (11.5-14.5); White Blood Count 6.6 K/mm3 (4.5-10.0)
[2023-10-07 14:37] LABS: Anion Gap 10 mmol/L (4-12); Blood Urea Nitrogen 22 mg/dL (9-20); Calcium 9.2 mg/dL (8.4-10.2); Carbon Dioxide 24 mmol/L (22-30); Chloride 101 mmol/L (98-107); Estimated Glomerular Filt Rate > 60; Glucose 82 mg/dL (65-110); Potassium 4.2 mmol/L (3.4-5.0); Sodium 135 mmol/L (137-145)
[2023-10-07 15:30] LABS: Iron 84 ug/dL (49-181)
[2023-10-07 15:43] LABS: Percent Iron Saturation 25 % (20-50)
[2023-10-14 12:33] LABS: Soluble Transferrin Receptor 1.84 mg/L (0.76-1.76)
== END 2023-10-07 10:09 | disposition home or self-care (01) ==
LOC: ANHLAB 10:11
PROVIDERS: PCP Family Medicine; Visit Provider Internal Medicine Hematology & Oncology
DX: D64.9 Anemia, unspecified (principal)
CPT/HCPCS: 36415; 80048; 82728; 83540; 83550; 84238; 85025

== ENCOUNTER 2023-12-19 15:02 | Outpatient (CLI) | payer MEDICARE, SELFPAY ==
--- NOTE | ~2023-12-19 | US_ITS ---
EXAMINATION: US carotid duplex BI DATE: 12/19/2023 16:07 INDICATION: Stenosis of right carotid artery. TECHNIQUE: Grayscale, color Doppler, and pulsed Doppler images of the cervical carotid arteries were obtained. The degree of vessel stenosis is placed in one of the following categories: normal, <50%, 5 0-69%, >=70% but less than near-occlusion, near-occlusion, or total occlusion. Note that percent sten osis relative to normal distal artery lumen diameter is indirectly measured from velocity measurement s as described by Jair, et al. Radiology 2003; 229:340-346. COMPARISON: Ultrasound 11/16/2022, CT 08/06/20 FINDINGS: RIGHT: The right common carotid artery (CCA) peak systolic velocity (PSV) is 90 cm/s. The right internal car otid artery (ICA) PSV is 129 cm/s. The right ICA end-diastolic velocity (EDV) is 18 cm/s. The right I CA/CCA PSV ratio is 1.4. Grayscale and color Doppler images yield an estimate of <50% diameter reduct ion from plaque in the ICA. There is antegrade flow in the right vertebral artery. LEFT: The left CCA PSV is 106 cm/s. The left ICA PSV is 106 cm/s. The left ICA EDV is 84 cm/s. The left ICA /CCA PSV ratio is 1.0. Grayscale and color Doppler images yield an estimate of <50% diameter reductio n from plaque in the ICA. There is antegrade flow in the left vertebral artery. IMPRESSION: 1. <50% stenosis in the right internal carotid artery. 2. <50% stenosis in the left internal carotid artery. Reviewed, dictated and finalized at location A.
== END 2023-12-19 15:03 | disposition home or self-care (01) ==
LOC: ANHIMG 15:13
PROVIDERS: PCP Family Medicine; Visit Provider Internal Medicine Cardiovascular Disease
DX: I65.23 Occlusion and stenosis of bilateral carotid arteries (principal)
CPT/HCPCS: 93880

== ENCOUNTER 2024-01-25 07:43 | Outpatient (CLI) | payer MEDICARE, SELFPAY ==
[2024-01-25 08:40] LABS: Alanine Aminotransferase 28 U/L (6-50); Albumin Level 4.4 g/dL (3.5-5.1); Alkaline Phosphatase 76 U/L (38-126); Anion Gap 8 mmol/L (4-12); Aspartate Amino Transferase 30 U/L (17-59); Bilirubin,Total 0.4 mg/dL (0.2-1.3); Blood Urea Nitrogen 24 mg/dL (9-20); Calcium 8.9 mg/dL (8.4-10.2); Carbon Dioxide 28 mmol/L (22-30); Chloride 100 mmol/L (98-107); Cholesterol 86 mg/dL (0-200); Estimated Glomerular Filt Rate > 60; Glucose 102 mg/dL (65-110); HDL Direct 32 mg/dL; Potassium 4.3 mmol/L (3.4-5.0); Sodium 136 mmol/L (137-145); Triglycerides 284 mg/dL (<150)
[2024-01-25 09:29] LABS: LDL Cholesterol Direct < 30 mg/dL
== END 2024-01-25 07:44 | disposition home or self-care (01) ==
PROVIDERS: PCP Family Medicine; Visit Provider Family Medicine
DX: E11.9 Type 2 diabetes mellitus without complications (principal); E78.2 Mixed hyperlipidemia; E03.9 Hypothyroidism, unspecified
CPT/HCPCS: 36415; 80053; 80061; 84443; 99212; G0463

== ENCOUNTER 2024-04-13 08:05 | Outpatient (CLI) | payer MEDICARE, SELFPAY ==
[2024-04-13 08:24] LABS: Basophils Absolute Auto 0.1 K/mm3 (0.0-0.1); Eosinophils Absolute Auto 0.3 K/mm3 (0-0.3); Eosinophils Percent Auto 5.9 % (0-4.4); Hematocrit 40.7 % (42.0-52.0); Hemoglobin 13.5 g/dL (14.0-18.0); Immature Granulocyte Absolute 0.05 K/mm3 (0.00-0.031); Lymphocytes Absolute Auto 1.62 K/mm3 (0.9-3.2); Lymphocytes Percent Auto 32.8 % (18.3-44.2); Mean Corpuscular HGB Conc 33.2 g/dl (32-36); Mean Corpuscular Hemoglobin 29.4 pg (26-34); Mean Corpuscular Volume 88.7 fl (80-100); Mean Platelet Volume 9.7 fl (7.4-10.4); Monocytes Absolute Auto 0.5 K/mm3 (0.1-0.6); Monocytes Percent Auto 9.7 % (2.6-8.5); Neutrophils Absolute Auto 2.4 K/mm3 (1.3-6.7); Neutrophils Percent Auto 48.6 % (45.5-73.1); Platelet Count Result 199 k/mm3 (150-375); Red Blood Count 4.59 M/mm3 (4.6-6.20); Red Cell Distribution Width 13.5 % (11.5-14.5); White Blood Count 4.9 K/mm3 (4.5-10.0)
[2024-04-13 09:31] LABS: Anion Gap 10 mmol/L (4-12); Blood Urea Nitrogen 24 mg/dL (9-20); Calcium 9.5 mg/dL (8.4-10.2); Carbon Dioxide 25 mmol/L (22-30); Chloride 103 mmol/L (98-107); Estimated Glomerular Filt Rate > 60; Glucose 97 mg/dL (65-110); Potassium 4.6 mmol/L (3.4-5.0); Sodium 138 mmol/L (137-145)
[2024-04-13 09:41] LABS: Iron 89 ug/dL (49-181)
[2024-04-13 09:50] LABS: Percent Iron Saturation 24 % (20-50)
[2024-04-13 10:38] LABS: Folic Acid 14.6 ng/mL (2.76->20)
== END 2024-04-13 08:06 | disposition home or self-care (01) ==
LOC: ANHLAB 08:05
PROVIDERS: PCP Family Medicine; Visit Provider Internal Medicine Hematology & Oncology
DX: D64.9 Anemia, unspecified (principal)
CPT/HCPCS: 36415; 80048; 82607; 82728; 82746; 83540; 83550; 85025

== ENCOUNTER 2024-07-26 08:11 | Outpatient (CLI) | payer MEDICARE, SELFPAY ==
--- OUTSIDE RECORDS SUMMARY | 2024-07-26 08:14 | XMS_ITS | Encounter Summary ---
Author Organization [facility] Address [address] [place] [address] Care Team Providers Care Print Binding And Finishing Worker Name Role Phone Ann-Marie Cruz MD Primary Care Provider [phone] Ann-Marie Cruz MD Primary Care Provider [phone] Ann-Marie Cruz MD Unavailable [phone] Ann-Marie Cruz MD Primary Care Provider [phone] Encounter Details Date Type Department Care Team (Late st Contact Info) Description 01/29/2010 Orders Only [facility] ProviderAbelardo MD [address] [place] [id number] Social History Tobacco Use Types Packs/Day Years Used Date Smoking Tobacco: Never Assessed Sex and Gender Information Value Date Recorded Sex Assigned at Male 06/11/2018 5:06 PM CDT Legal Sex Male 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 Historical Provider [facility] C[facility]IAC SERVICES PROCE DURES Final Result * CARDIOLOGY REPORT (01/29/2010) Anatomical Region Laterality Modality Other Narrative 01/29/2010 Ordered by an unspecified provider. Historical Provider CV CARDIAC SERVICES PROCE DURES Final Result * CARDIOLOGY REPORT (01/29/2010) Anatomical Region Laterality Modality Other Narrative 01/29/2010 Ordered by an unspecified provider. Historical Provider CV CARDIAC SERVICES PROCE DURES Final Result documented in this encounter Visit Diagnoses Not on filedocumented in this encounter Care Teams Print Binding And Finishing Worker Relationship Specialty Start Date End Date Ann-Marie Cruz MD PCP - General 04/30/16 06/10/16 Ann-Marie Cruz MD PCP - General 06/11/16 Ann-Marie Cruz MD PCP - General 07/16/15 04/29/16 Ann-Marie Cruz MD 06/11/16 documented as of this encounter
--- OUTSIDE RECORDS SUMMARY | 2024-07-26 08:14 | XMS_ITS | Clinical Summary ---
Author Organization [facility] Address [address] [place] [address] [place] [address] Care Team Providers Care Freight Car Loader Name Role Phone Ann-Marie Cruz MD Primary Care Provider [phone] Allergies Active Allergy Reactions Criticality Noted Date Comments Chlordiazepoxide Hallucination Medium 10/15/2019 Hallucinations Chlordiazepoxide-Clidin ium Other (See Comments) Medium 05/10/2023 Reaction: Hallucinations, Methscopolamine Hallucination Medium 10/15/2019 Hallucinations Niacin Other (See Comments),Rash Low 10/15/2019 Flushing Iujdkxa-Rlq-Ndl Reductase Inhibitors Muscle Pain Medium 02/20/2020 Intolerance (myalgia) Atorvastatin 40 mg Yellow Dye Hallucination Low 05/10/2023 Medications docusate sodium (COLACE) 100 mg capsule Take 100 mg by mouth 2 times daily as needed. 2 Active ferrous gluconate 324 mg (38 mg iron) tablet Take 324 mg by mouth daily. 3 Active furosemide (LASIX) 20 mg tablet Take 20 mg by mouth Continuous as needed. 3 Active icosapent ethyL (VASCEPA) 1 gram Capsule Take 2 Grams by mouth 2 times daily with meals. 3 Active levothyroxine 88 mcg tablet Take 88 mcg by mouth daily. 2 Active metoprolol tartrate (LOPRESSOR) 25 mg tablet Take 25 mg by mouth 2 times daily. 3 Active potassium chloride (KLOR-CON) 20 mEq Extended Release tablet Take 20 mEq by mouth daily. 07/07/202 3 Active aspirin (ECOTRIN EC) 81 mg Tablet, Delayed Release (E.C.) Take 81 mg by mouth daily. Active finasteride (PROSCAR) 5 mg tablet Take 5 mg by mouth daily. Active loratadine (CLARITIN) 10 mg tablet Take 10 mg by mouth daily. Active doxycycline hyclate (VIBRAMYCIN) 100 mg capsule Take 100 mg by mouth 2 times daily. Active alirocumab (Praluent Pen) 75 mg/mL Pen Injector Inject 75 mg by subcutaneous injection every 2 weeks. Active Vit C-Vit J-Nhmcay-AaYa-L utein (PRESERVISION) 226-90-0.8-5 mg Capsule Take 1 Capsule by mouth daily. Active Active Problems No known active problems Encounters Date Type Department Care Team Description 06/26/2024 External Device Data [facility] ABSTRACTION Provider, Abstract 06/19/2024 External Device Data [facility] ABSTRACTION Provider, Abstract 05/30/2024 External Device Data [facility] ABSTRACTION Provider, Abstract 05/21/2024 External Device Data [facility] ABSTRACTION Provider, Abstract 05/08/2024 External Device Data [facility] ABSTRACTION Provider, Abstract from Last 3 Months Social History Tobacco Use Types Packs/Day Years Used Date Smoking Tobacco: Former Cigarettes 1 32 0 10/12/1969 - 10/12/2001 Smokeless Tobacco: Never Tobacco Cessation:Counseling Given: Not Answered Alcohol Use Standard Drinks/Week Comments Never 0 (1 standard drink = 0.6 oz pur e alcohol) Socially Sex and Gender Information Value Date Recorded Sex Assigned at Not on file Legal Sex Male 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 Gender Identity Not on file Sexual Orientation Not on file Last Filed Vital Signs Vital Sign Reading Time Taken Comments Blood Pressure 127/64 04/18/2024 2:23 PM SPRING FITTER HELPER Pulse 56 04/18/2024 2:23 PM SPRING FITTER HELPER Temperature 36.2 C (97.2 F) 04/18/2024 2:23 PM SPRING FITTER HELPER Respiratory Rate 18 04/18/2024 2:23 PM SPRING FITTER HELPER Oxygen Saturation 93% 04/18/2024 2:23 PM SPRING FITTER HELPER Inhaled Oxygen Concentration - - Weight 99.8 kg (220 lb) 04/18/2024 2:23 PM SPRING FITTER HELPER Height 172.7 cm (5' 8 ) 05/10/2023 10:38 AM SPRING FITTER HELPER Body Mass Index 33.45 05/10/2023 10:38 AM SPRING FITTER HELPER Plan of Treatment Upcoming Encounters Date Type Department Care Team (Late st Contact Info) Description 10/18/2024 10:15 AM CDT Office Visit [facility] Oncology and H[facility]ology - [place] [address] [facility] [address] [place] [address] Som Wolfe MD [address] [facility] [address] [place] [address] Health Maintenance Due Date Last Done Comments DTAP/TDAP/TD VACCINES (1 - Tdap) 1969 PNEUMOCOCCAL VACCINE 50+ YEARS (1 of 2 - PCV) 02/13/19 70 FIT-DNA Q 3 years 02/14/1996 FIT/FOBT Q 1 year 02/14/1996 Flex Sig/CT Colonography Q 5 years 02/14/1996 ZOSTER VACCINE (1 of 2) 2001 Abdominal Aortic Aneurysm (AAA) Screening 02/14/2016 INFLUENZA VACCINE (#1) 2023 12/12/2015 RSV VACCINE (60+ or ) (1 - 1-dose 75+ series) 2026 COLORECTAL SCREENING 07/31/2030 07/31/2020 Colorectal Cancer Screening 07/31/2030 Insurance AETNA O MCR Care Teams Freight Car Loader Relationship Specialty Start Date End Date Ann-Marie Cruz MD [address] [place] [id number] PCP - General Family Practice 05/10/23
--- OUTSIDE RECORDS SUMMARY | 2024-07-26 08:14 | XMS_ITS | Clinical Summary ---
Author Organization [facility] Address [address] [place] [address] Care Team Providers Care Septic Pump Truck Driver Name Role Phone Ann-Marie Cruz MD Primary Care Provider [phone] Ann-Marie Cruz MD Unavailable [phone] Allergies Active Allergy Reactions Criticality Noted Date Comments Chlordiazepoxide Hallucinations Medium 10/15/2019 Hallucinations Chlordiazepoxide-Clidini um Other (See comments) Medium Reaction: Hallucinations, Methscopolamine Hallucinations Medium 10/15/2019 Hallucinations Niacin Flushing (skin),Redness Low 10/15/2019 Flushing Zrnuvkm-Tkk-Ifo Reductase Inhibitors Muscle pain Medium 02/20/2020 Intolerance (myalgia) Atorvastatin 40 mg Medications loratadine (CLARITIN) 10 mg tablet take 1 tablet by oral route every day 0 0 017 Active Additional Information Patient taking differently:10 mgoral Daily (early AM), Reported on 07/05/2024 aspirin (ASPIRIN LOW DOSE) 81 mg tablet take 1 tablet by oral route every day 0 0 017 Active Additional Information Patient taking differently:81 mgoral Daily, Reported on 07/05/2024 finasteride (PROSCAR) 5 mg tablet Take 1 tablet (5 mg total) by mouth daily with dinner 4 019 Active doxycycline (ADOXA) 100 mg tablet Take 1 tablet (100 mg total) by mouth 2 (two) times a day 1 upon rising and 1 with dinner Active vit C/E/Zn/coppr/lutei n/zeaxan (PRESERVISION AREDS-2 ORAL) Take 1 capsule by mouth 2 (two) times a day with breakfast and lunch Active levothyroxine (SYNTHROID) 88 mcg tablet Take 1 tablet (88 mcg total) by mouth ophthalmic aide before breakfast 022 Active docusate sodium (COLACE) 100 mg capsule TAKE 1 CAPSULE BY MOUTH TWICE A DAY NEEDED FOR CONSTIPATION 022 Active ferrous gluconate 324 mg (38 mg of elemental iron) tablet Take 1 tablet (324 mg total) by mouth daily 023 Active metroNIDAZOLE (METROGEL) 1 % gel Apply topically daily Active ascorbic acid (vitamin C) 250 mg tablet Take 1 tablet (250 mg total) by mouth daily Active amoxicillin (AMOXIL) 500 mg tablet/capsule Take 4 caps (2000 mg) 1 hour prior to procedure. 4 tablet/cap milton 5 024 Active Klor-Con M20 20 mEq CR tablet TAKE 1 TABLET BY MOUTH EVERY DAY 90 tablet 3 024 Active furosemide (LASIX) 20 mg tabletIndications: Edema, lower extremity TAKE 1 TABLET BY MOUTH TWICE A DAY 180 tablet 3 024 Active evolocumab (Repatha SureClick) 140 mg/mL pen injector INJECT 1 ML (140 MG TOTAL) UNDER THE SKIN EVERY 14 DAYS. 2 mL 3 025 Active Vascepa 1 gram capsule TAKE 2 CAPSULES BY MOUTH TWICE A DAY 360 capsule 2 025 Active metOLazone (ZAROXOLYN) 2.5 mg tabletIndications: Bilateral lower extremity edema Take 1 tablet (2.5 mg total) by mouth daily as needed (swelling) 30 tablet 1 025 Active metoprolol tartrate (LOPRESSOR) 25 mg immediate release tabletIndications: Coronary atherosclerosis of [place] coronary artery,Nonrheumati c aortic valve stenosis,Essential hypertension TAKE 1 TABLET BY MOUTH TWICE A DAY 180 tablet 2 025 Active lisinopriL (PRINIVIL,ZESTRIL) 20 mg tabletIndications: Coronary artery disease of [place] artery of [place] heart with stable angina pectoris TAKE 1 TABLET BY MOUTH EVERY DAY 90 tablet 3 025 Active lisinopriL (PRINIVIL,ZESTRIL) 20 mg tabletIndications: Coronary artery disease of [place] artery of [place] heart with stable angina pectoris TAKE 1 TABLET BY MOUTH EVERY DAY 90 tablet 3 024 2024 Discontinued metoprolol tartrate (LOPRESSOR) 25 mg immediate release tabletIndications: Coronary atherosclerosis of [place] coronary artery,Nonrheumati c aortic valve stenosis,Essential hypertension TAKE 1 TABLET BY MOUTH TWICE A DAY 180 tablet 2 024 2024 Discontinued Active Problems Problem Noted Date Diagnosed Date Severe obesity 07/05/2024 Stenosis of right carotid artery 11/12/2021 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 Follow up in 6 months. Assessment & Plan (11/22/2023 6:56 PM CDT): He has no evidence of disease recurrence or persistence. He has normal vocal cord mobility. I do not really find significant problems. I am recommending continued observation and the plan is for a follow up in about 6 months. Assessment & Plan (05/04/2023 12:18 PM HEAD GROWER): He has an essentially normal exam on fiberoptic laryngoscopy. I reassured him of this. I am recommending a follow-up in 6 months. Assessment & Plan (11/02/2022 7:28 PM CDT): Is larynx looks generally normal. There is no evidence of any recurrence of tumor or mass. He is normal vocal cord mobility. I told him that he is free of disease. I recommended that he follow-up in 6 months. I will certainly see him sooner however there are any changes. Assessment & Plan (10/30/2021 5:41 PM CDT): He has not no evidence of disease. Voice is pretty good also. I am recommending continued surveillance in the plan is for a follow-up in about 6 months. Hoarseness 10/27/2021 Assessment & Plan (05/22/2024 7:16 PM CDT): I do not find anything worrisome on his laryngeal exam. Assessment & Plan (11/22/2023 6:57 PM CDT): I reassured him that everything looks okay. He has some mild vocal cord edema which is causing the hoarseness. No need for further intervention. See him in 6 months. Assessment & Plan (05/04/2023 12:19 PM HEAD GROWER): I think his voice sounds pretty good today. Overall I think there has been improvement. Recommending no intervention. Assessment & Plan (11/02/2022 7:29 PM CDT): This may be a long-term effects from his tumor as well as radiation therapy. His voice really isn't too bad so I did not recommend any type of therapy. He is fine with that. Assessment & Plan (10/30/2021 5:41 PM CDT): His voice is quite good. No further recommendations. Right carotid bruit 08/18/2021 Morbid (severe) obesity due to excess calories 0 08/18/2021 Bilateral lower extremity edema 08/06/2020 Hyperlipidemia LDL goal <70 05/14/2020 Coronary artery disease of n ative artery of [place] heart with stable angina pectoris 06/15/2016 Overview (08/06/2016): Coronary artery disease involving [place] coronary artery of [place] heart without angina pectoris Atherosclerosis of coronary artery bypass graft 06/03/2016 Complex sleep apnea syndrome 04/28/2016 Overview (06/18/2016): Complex sleep apnea syndrome RBBB 04/28/2016 Overview (06/18/2016): Right bundle branch block Former smoker 04/28/2016 Overview (06/18/2016): Former smoker Hypothyroidism 04/28/2016 Overview (06/18/2016): Hypothyroidism, unspecified type Abnormal electrocardiography 04/28/2016 Overview (06/18/2016): Abnormal EKG Hypertriglyceridemia 04/28/2016 Overview (06/18/2016): Hyperlipidemia LDL goal <70 Essential hypertension 04/28/2016 Overview (06/18/2016): Essential hypertension Nonrheumatic aortic valve stenosis 04/28/2016 Overview (06/18/2016): Aortic valve stenosis, nonrheumatic Subjective carotid bruit 04/28/2016 Overview (06/18/2016): Left carotid bruit S/P TAVR (transcatheter aortic valve replacement ) Encounters Date Type Department Care Team Description 07/05/2024 2:30 PM CDT Office Visit [facility] Card[facility] [address] [place] [id number] Agustin Portillo MD Coronary artery disease of [place] artery of [place] heart with stable angina pectoris (Primary Dx); Essential hypertension; Hyperlipidemia LDL goal <70; S/P TAVR (transcatheter aortic valve replacement); Bilateral lower extremity edema; Severe obesity (HCC) 05/22/2024 9:45 AM CDT Office Visit 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 (HCC) from Last 3 Months Immunizations Immunization Administration Dates Next Due Influenza, Trivalent, IM (MDV) 12/12/2015 Surgical History Surgery Date Site/Laterality Comments VASECTOMY LARYNX SURGERY cancerous polyp on right vocal cord, followed by radiation CATARACT EXTRACTION 12/12/2018 - 01/11/2019 CARDIAC CATHETERIZATION 2020 MOLE REMOVAL on chest CORONARY ARTERY BYPASS GRAFT 05/03/2016 2 vessel ANAL FISSURECTOMY + sphincter repair & hemorrhoidectomy EYE SURGERY Left macular hole CARDIAC VALVE REPLACEMENT 07/16/21 TAVR LASIK August 2020 Medical History Medical History Date Comments Heart valve disease Valvular dis ease Hypertension High cholesterol Allergic rhinitis Heart disease CAD (coronary artery disease) 2016 Cataract October 2018 / remove d December 2018 from both eyes RBBB (right bundle branch block) 2017 Nonrheumatic aortic valve stenosis 2017 Bilateral lower extremity edema 07/2020 Sleep apnea ASV Severe obstructive sleep apnea Complex sleep apnea syndrome BPH (benign prostatic hyperplasia) Hypoglycemia Hypothyroidism Cancer (HCC) vocal cord polyp stage1 Arthritis moderate lower back on right - right foot Family History Medical History Relation Name Comments Cancer Father Relation Name Status Comments Father Mother Social History Tobacco Use Types Packs/Day Years Used Date Smoking Tobacco: Former Cigarettes 1 32 0 10/27/1969 - 10/27/2001 Smokeless Tobacco: Never Tobacco Cessation:Counseling Given: Not Answered Alcohol Use Standard Drinks/Week Comments No 0 (1 standard drink = 0.6 oz pur e alcohol) AUDIT-C Answer Date Recorded Q1: How often do you have a drink containing alc ohol? Never 07/16/2021 Average Number of Drinks Not on file 022 Q3: How often do you have si x or more drinks on one occasion? Never 07/16/2021 Sex and Gender Information Value Date Recorded Sex Assigned at Male 06/11/2018 5:06 PM CDT Legal Sex Male 4:04 AM HEAD GROWER Gender Identity Male 06/11/2018 5:06 PM CDT Sexual Orientation Straight 06/11/2018 5: 06 PM CDT Obstetrics History Last Filed Vital Signs Vital Sign Reading Time Taken Comments Blood Pressure 128/50 07/05/2024 2:53 PM CDT Pulse 57 07/05/2024 2:53 PM CDT Temperature 37.1 C (98.7 F) 07/17/2021 11:19 AM CDT Respiratory Rate 18 05/22/2024 10:08 AM CDT Oxygen Saturation 96% 07/05/2024 2:53 PM CDT Inhaled Oxygen Concentration - - Weight 106.1 kg (234 lb) 07/05/2024 2:53 PM CDT Height 172.7 cm (5' 8 ) 07/05/2024 2:53 PM CDT Body Mass Index 35.58 07/05/2024 2:53 PM CDT Plan of Treatment Health Maintenance Due Date Last Done Comments Colon Cancer Screening-Colonoscopy 1950 Depression Screening 1950 DTaP/Tdap/Td Vaccine (1 - Tdap) 1962 Hepatitis B Screening 1969 Abdominal Aortic Aneurysm (A AA) Screen 02/14/2016 Well Visit 65+ 02/14/2016 Fall Risk Assessment 07/17/2022 07/17/2021 Covid-19 Vaccine (2023-2 5 season) 2023 01/20/2021, 06/02/2020, 04/30/2020 Influenza Vaccine (Season Ended) 2024 12/01/2020, 12/04/2019, 12/19/2018, Additional history exists Zoster Vaccine Completed 04/04/2018, 11/21/2017 Pneumococcal vaccine 65+ Completed 05/26/2018, 03/2017 Hepatitis C Screening Completed 07/16/2021 Medical Devices Implanted Type Area Filter Operator Device Identifier Shelf Expiration Date Model / Serial / Lot Valve Crimper [id number] - [id number] - [id number] Implanted:Qty: 1 on 07/16/2021 by Jorge Ulloa MD at [facility] [employer] 10/19/2022 [id number] / [id number] / [employer] Device Clsr Perclose Prostyle Sut-Mediatd Closure-Repair Sys [id number] - [id number] Implanted:Qty: 1 on 07/16/2021 by Jorge Ulloa MD at [facility] 06/12/2023 [id number] / / [employer] Device Clsr Perclose Prostyle Sut-Mediatd Closure-Repair Sys 71661-15 - [id number] Implanted:Qty: 1 on 07/16/2021 by Jorge Ulloa MD at [facility] 06/12/2023 [id number] / / Procedures Procedure Name Priority Date/Time Associated Diagnosis Comments HEPATITIS C ANTIBODY Routine 07/16/2021 9:29 AM CDT from Last 3 Months or Most Recently Relevant to Health Maintenance Results * Hepatitis C antibody (07/16/2021 9:29 AM CDT) Hep C Ab Nonreactive Nonreactive JOSE WILLIAM Comment: Interpretive Data Nonreactive: Antibodies to HCV not detected. Does NOT exclude the possibility of recent exposure to HCV. Equivocal: Equivocal for HCV antibodies. Supplemental molecular testing will be automatically performed to determine infection status in accordance with current CDC screening recommendations. Reactive: Positive for HCV antibodies. This may represent current or past HCV infection. Supplemental molecular testing will be automatically performed to determine current infection status in accordance with current CDC screening recommendations. Interpretive data was last revised on 2019. Blood 07/16/2021 9:29 AM CDT 07/16/2021 10:21 AM CDT us Notinfile Unknown LAB MICROBIOLOGY - GENERAL ORD ERABLES Final Result JOSE [id number] Department [place] [address] from Last 3 Months or Most Recently Relevant to Health Maintenance Insurance T MEDICARE GOLD AETNA MEDICARE GOLD AETNA MEDICARE GOLD Care Teams Septic Pump Truck Driver Relationship Specialty Start Date End Date Ann-Marie Cruz MD PCP - General 06/11/16 Ann-Marie Cruz MD 06/11/16
--- OUTSIDE RECORDS SUMMARY | 2024-07-26 08:14 | XMS_ITS | Referral Summary ---
Author Organization [facility] Address [address] [place] [address] Care Team Providers Care Furrier Apprentice Name Role Phone Ann-Marie Cruz MD Primary Care Provider [phone] Ann-Marie Cruz MD Unavailable [phone] Encounters Date Type Department Care Team Description 07/05/2024 2:30 PM CDT Office Visit 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 (HCC) from Last 3 Months Allergies Active Allergy Reactions Criticality Noted Date Comments Chlordiazepoxide Hallucinations Medium 10/15/2019 Hallucinations Chlordiazepoxide-Clidini um Other (See comments) Medium Reaction: Hallucinations, Methscopolamine Hallucinations Medium 10/15/2019 Hallucinations Niacin Flushing (skin),Redness Low 10/15/2019 Flushing Mcxgoet-Wfk-Tkt Reductase Inhibitors Muscle pain Medium 02/20/2020 Intolerance [...] total) by mouth daily with dinner 4 Active doxycycline (ADOXA) 100 mg tablet Take 1 tablet (100 mg total) by mouth 2 (two) times a day 1 upon rising and 1 with dinner Active vit C/E/Zn/coppr/lutei n/zeaxan (PRESERVISION AREDS-2 ORAL) Take 1 capsule by mouth 2 (two) times a day with breakfast and lunch Active levothyroxine (SYNTHROID) 88 mcg tablet Take 1 tablet (88 mcg total) by mouth retail experience specialist before breakfast Active docusate sodium (COLACE) 100 mg capsule TAKE 1 CAPSULE BY MOUTH TWICE A DAY NEEDED FOR CONSTIPATION Active ferrous gluconate 324 mg (38 mg [...] mg immediate release tabletIndications: Coronary atherosclerosis of [place] coronary artery,Nonrheumati c aortic valve stenosis,Essential hypertension TAKE 1 TABLET BY MOUTH TWICE A DAY 180 tablet 2 025 Active lisinopriL (PRINIVIL,ZESTRIL) 20 mg tabletIndications: Coronary artery disease of [place] artery of [place] heart with stable angina pectoris TAKE 1 TABLET BY MOUTH EVERY DAY 90 tablet 3 025 Active lisinopriL (PRINIVIL,ZESTRIL) 20 mg tabletIndications: Coronary artery disease of [place] artery of [place] heart with stable angina pectoris TAKE 1 TABLET BY MOUTH EVERY DAY 90 tablet 3 024 2024 Discontinued metoprolol tartrate (LOPRESSOR) 25 mg immediate release tabletIndications: Coronary atherosclerosis of [place] coronary artery,Nonrheumati c aortic valve stenosis,Essential hypertension [...] months. Assessment & Plan (05/04/2023 12:18 PM PORK CUTLET MAKER): He has an essentially normal exam on [...] months. Assessment & Plan (05/04/2023 12:19 PM PORK CUTLET MAKER): I think his voice sounds pretty good [...] artery disease of n ative artery of [place] heart with stable angina pectoris 06/15/2016 Overview (08/06/2016): Coronary artery disease involving [place] coronary artery of [place] heart without angina pectoris Atherosclerosis of coronary [...] S/P TAVR (transcatheter aortic valve replacement ) Immunizations Immunization Administration Dates Next Due Influenza, Trivalent, IM (MDV) 12/12/2015 Social History Tobacco Use Types Packs/Day Years [...] PM CDT Legal Sex Male 4:04 AM PORK CUTLET MAKER Gender Identity Male 06/11/2018 5:06 PM CDT Sexual Orientation Straight 06/11/2018 5: 06 PM CDT Last Filed Vital Signs Vital Sign Reading [...] 07/05/2024 2:53 PM CDT Plan of Treatment Not on file Medical Devices Implanted Type Area Flatlock Sewing Machine Operator Device Identifier Shelf Expiration Date Model / Serial / Lot Valve Crimper [id number] - [id number] - [id number] Implanted:Qty: 1 on 07/16/2021 by Jorge Ulloa MD at [facility] [employer] 10/19/2022 [id number] / [id number] / [employer] Device Clsr Perclose Prostyle Sut-Mediatd Closure-Repair Sys [id number] - [id number] Implanted:Qty: 1 on 07/16/2021 by Jorge Ulloa MD at [facility] 06/12/2023 [id number] / / [employer] Device Clsr Perclose Prostyle Sut-Mediatd Closure-Repair Sys 06698-45 - [id number] Implanted:Qty: 1 on 07/16/2021 by Jorge Ulloa MD at [facility] 06/12/2023 [id number] / / Procedures Procedure Name Priority Date/Time [...] was last revised on 2019. Blood 07/16/2021 9:2 9 AM CDT 07/16/2021 10:21 AM CDT us Notinfile Unknown LAB MICROBIOLOGY - GENERAL ORD ERABLES Final Result JOSE WILLIAM [id number] Department [place] [address] from Last 3 Months or Most Recently Relevant to Health Maintenance Insurance T MEDICARE GOLD TNA MEDICARE GOLD AETNA MEDICARE GOLD Care Teams Furrier Apprentice Relationship Specialty Start Date End Date Ann-Marie Cruz MD PCP - General 06/11/16 Ann-Marie Cruz MD 06/11/16
--- OUTSIDE RECORDS SUMMARY | 2024-07-26 08:14 | XMS_ITS | Encounter Summary ---
Author Organization [facility] Address [address] [place] [address] Care Team Providers Care Deck Scaler Name Role Phone Ann-Marie Cruz MD Primary Care Provider [phone] Ann-Marie Cruz MD Primary Care Provider Ann-Marie Cruz MD Unavailable Ann-Marie Cruz MD Primary Care Provider [phone] Encounter Details Date Type Department Care Team (Late st Contact Info) Description 04/28/2016 Orders Only [facility] ProviderAbelardo MD [address] [place] [id number] Social History Tobacco Use Types Packs/Day Years Used Date Smoking Tobacco: Never Alcohol Use Standard Drinks/Week Comments No 0 (1 standard drink = 0.6 oz pur e alcohol) Sex and Gender Information Value Date Recorded Sex Assigned at Male 06/11/2018 5:06 PM CDT Legal Sex Male 4:04 AM DIRECTOR OF ONLINE MERCHANDISING Gender Identity Male 06/11/2018 5:06 PM CDT Sexual Orientation Straight 06/11/2018 5: 06 PM CDT documented as of this encounter Plan of Treatment Not on file documented as of this encounter Procedures Procedure Name Priority Date/Time Associated Diagnosis Comments CARDIOLOGY REPORT 04/28/2016 documented in this encounter Results * CARDIOLOGY REPORT (04/28/2016) Anatomical Region Laterality Modality Other Narrative 04/28/2016 Ordered by an unspecified provider. us Historical Provider [facility] SWATHI ROTH Final Result documented in this encounter Visit Diagnoses Not on filedocumented in this encounter Care Teams Deck Scaler Relationship Specialty Start Date End Date Ann-Marie Cruz MD PCP - General 04/30/16 06/10/16 Ann-Marie Cruz MD PCP - General 06/11/16 Ann-Marie Cruz MD PCP - General 07/16/15 04/29/16 Ann-Marie Cruz MD 06/11/16 documented as of this encounter
--- OUTSIDE RECORDS SUMMARY | 2024-07-26 08:14 | XMS_ITS ---
Author Organization [facility] Address [address] [place] [address] Care Team Providers Care Aircraft Riveter Name Role Phone Ann-Marie Cruz MD Primary Care Provider [phone] Ann-Marie Cruz MD Unavailable [phone] Active Problems Problem Noted Date Diagnosed Date [...] months. Assessment & Plan (05/04/2023 12:18 PM CRINKLING MACHINE OPERATOR): He has an essentially normal exam on [...] months. Assessment & Plan (05/04/2023 12:19 PM CRINKLING MACHINE OPERATOR): I think his voice sounds pretty good [...] artery disease of n ative artery of [place] heart with stable angina pectoris 06/15/2016 Overview (08/06/2016): Coronary artery disease involving [place] coronary artery of [place] heart without angina pectoris Atherosclerosis of coronary [...] S/P TAVR (transcatheter aortic valve replacement ) Current Treatment and Therapy Plans No current plan information found. Past Treatment and Therapy Plans No past plan information found. Lifetime Dose Tracking * Chemical Lifetime Dose Automatic Entry Manual Entr y Air kerma at the reference point (Ka,r) 664.5 mGy 0 mGy 664.5 mGy
--- OUTSIDE RECORDS SUMMARY | 2024-07-26 08:14 | XMS_ITS | Clinical Summary ---
Author Organization [facility] Address [address] [address] Phone Care Team Providers Care Asphalt Paver Operator Name Role Phone Ann-Marie Cruz MD Primary Care Provider [phone] Medications polyethylene glycol (MIRALAX) Powder Mix the entire bottle with 64 oz of a clear liquid. Use as directed by the office for colonoscopy prep. 255 g 7 Active Social History Tobacco Use Types Packs/Day Years Used Date Smoking Tobacco: Never Assessed Sex and Gender Information Value Date Recorded Sex Assigned at Not on file Legal Sex Male 9:32 AM CDT Gender Identity Not on file Sexual Orientation Not on file Plan of Treatment Health Maintenance Due Date Last Done Comments Hepatitis C Virus (HCV) Screening 1950 TdaP Immunization 1950 Cologuard 2001 Immunochemical Fecal Occult Blood 2001 Pneumococcal Immunization (5 0+ years) (1 of 1 - PCV) 2001 Zoster Immunization (1 of 2) 2001 Colonoscopy 08/01/2023 07/31/2020, 04/19/2017 Colorectal Cancer Screening 08/01/2023 Influenza Immunization (#1) 2023 SARS-COV-2 Immunization ( - season) 2023 Respiratory Syncytial Virus (RSV) Immunization (Adult) (1 - 1-dose 75+ series) 2026 07/31/2020, 04/19/2017 Hepatitis B Immunization Aged Out No longer eligible based on patient's age to complete this topic Meningococcal Immunization (ACWY) Aged Out No longer eligible b ased on patient's age to complete this topic Rotavirus Immunization Aged Out No lo nger eligible based on patient's age to complete this topic Procedures Procedure Name Priority Date/Time Associated Diagnosis Comments COLONOSCOPY Routine 07/31/2020 from Last 3 Months or Most Recently Relevant to Health Maintenance Results * COLONOSCOPY (07/31/2020) Joe Guadalupe DO PROCEDURE/MINOR SURGICAL ORDERA BLES Final Result from Last 3 Months or Most Recently Relevant to Health Maintenance Insurance MEDICARE C AETNA Care Teams Asphalt Paver Operator Relationship Specialty Start Date End Date Ann-Marie Cruz MD [address] [place] [address] PCP - General Family Medicine 12/14/16
[2024-07-26 08:54] LABS: Alanine Aminotransferase 28 U/L (6-50); Albumin Level 4.1 g/dL (3.5-5.1); Alkaline Phosphatase 84 U/L (38-126); Anion Gap 7 mmol/L (4-12); Aspartate Amino Transferase 33 U/L (17-59); Bilirubin,Total 0.4 mg/dL (0.2-1.3); Blood Urea Nitrogen 28 mg/dL (9-20); Calcium 8.9 mg/dL (8.4-10.2); Carbon Dioxide 28 mmol/L (22-30); Chloride 101 mmol/L (98-107); Cholesterol 86 mg/dL (0-200); Estimated Glomerular Filt Rate > 60; Glucose 105 mg/dL (65-110); HDL Direct 30 mg/dL; Potassium 4.4 mmol/L (3.4-5.0); Sodium 136 mmol/L (137-145); Triglycerides 340 mg/dL (<150)
[2024-07-26 09:18] LABS: Vitamin D 25 Hydroxy 26.2 ng/mL
[2024-07-26 09:25] LABS: Prostate Specific Antigen 0.2 ng/mL (< OR = 4.0)
[2024-07-26 09:31] LABS: LDL Cholesterol Direct < 30 mg/dL
[2024-07-26 11:23] LABS: Hemoglobin A1C 5.3 % (<5.7)
== END 2024-07-26 08:12 | disposition home or self-care (01) ==
PROVIDERS: PCP Family Medicine; Referring Provider Internal Medicine Cardiovascular Disease; Visit Provider Family Medicine
DX: E55.9 Vitamin D deficiency, unspecified (principal); E87.1 Hypo-osmolality and hyponatremia; E03.9 Hypothyroidism, unspecified; E78.2 Mixed hyperlipidemia; Z12.5 Encounter for screening for malignant neoplasm of prostate; Z13.1 Encounter for screening for diabetes mellitus
CPT/HCPCS: 36415; 80053; 80061; 82306; 83036; 84153; 84443; G0103

== ENCOUNTER 2024-08-30 10:01 | Outpatient (CLI) | payer MEDICARE, SELFPAY ==
[2024-08-30 10:39] LABS: Alanine Aminotransferase 31 U/L (6-50); Albumin Level 4.4 g/dL (3.5-5.1); Alkaline Phosphatase 72 U/L (38-126); Anion Gap 11 mmol/L (4-12); Aspartate Amino Transferase 34 U/L (17-59); Bilirubin,Total 0.4 mg/dL (0.2-1.3); Blood Urea Nitrogen 29 mg/dL (9-20); Calcium 9.4 mg/dL (8.4-10.2); Carbon Dioxide 25 mmol/L (22-30); Chloride 102 mmol/L (98-107); Estimated Glomerular Filt Rate > 60; Glucose 115 mg/dL (65-110); Potassium 3.8 mmol/L (3.4-5.0); Sodium 138 mmol/L (137-145); Total Protein 6.9 g/dL (6.3-8.2)
--- OUTSIDE RECORDS SUMMARY | 2024-08-30 10:46 | XMS_ITS | Referral Summary ---
Author Organization [facility] Address [address] [place] [address] Care Team Providers Care Simulation Specialist Name Role Phone Ann-Marie Cruz MD Primary Care Provider [phone] Ann-Marie Cruz MD Unavailable [phone] Encounters Date Type Department Care Team Description 08/16/2024 3:30 PM CDT Office Visit [facility] Cardiology [address] [place] [address] [address] [place] [address] Kendy Faith NP Bilateral lower extremity edema; S/P TAVR (transcatheter aortic valve replacement); BMI 34.0-34.9,adult 07/05/2024 2:30 PM CDT Office Visit [facility] Cardiology [address] [facility] [address] [place] [address] Agustin Portillo MD Coronary artery disease of [place] artery of [place] heart with stable angina pectoris (Primary Dx); Essential hypertension; Hyperlipidemia LDL goal <70; S/P TAVR (transcatheter aortic valve replacement); Bilateral lower extremity edema; Severe obesity (HCC) from Last 3 Months Allergies Active Allergy Reactions Criticality Noted Date Comments Chlordiazepoxide Hallucinations Medium 10/15/2019 Hallucinations Chlordiazepoxide-Clidini um Other (See comments) Medium Reaction: Hallucinations, Methscopolamine Hallucinations Medium 10/15/2019 Hallucinations Niacin Flushing (skin),Redness Low 10/15/2019 Flushing Wcenhhq-Pvj-Wfz Reductase Inhibitors Muscle pain Medium 02/20/2020 Intolerance (myalgia) Atorvastatin 40 mg Medications loratadine (CLARITIN) 10 mg tablet take 1 tablet by oral route every day 0 0 017 Active aspirin (ASPIRIN LOW DOSE) 81 mg tablet take 1 tablet by oral route every day 0 0 017 Active finasteride (PROSCAR) 5 mg tablet Take 1 tablet (5 mg total) by mouth daily with dinner 4 019 Active doxycycline (ADOXA) 100 mg tablet Take 1 tablet (100 mg total) by mouth 2 (two) times a day 1 upon rising and 1 with dinner 020 Active vit C/E/Zn/coppr/lutei n/zeaxan (PRESERVISION AREDS-2 ORAL) Take 1 capsule by mouth 2 (two) times a day with breakfast and lunch 020 Active levothyroxine (SYNTHROID) 88 mcg tablet Take 1 tablet (88 mcg total) by mouth coating machine helper before breakfast 022 Active docusate sodium (COLACE) [...] procedure. 4 tablet/cap milton 5 024 Active Additional Information Patient not taking.Reported on 08/16/2024 Klor-Con M20 20 mEq CR tablet TAKE 1 TABLET BY MOUTH EVERY DAY 90 tablet 3 024 Active furosemide (LASIX) 20 mg tabletIndications: Edema, lower extremity TAKE 1 TABLET BY MOUTH TWICE A DAY 180 tablet 3 024 Active evolocumab (Repatha SureClick) 140 mg/mL pen injector INJECT 1 ML (140 MG TOTAL) UNDER THE SKIN EVERY 14 DAYS. 2 mL 3 Active Vascepa 1 gram capsule TAKE 2 CAPSULES BY MOUTH TWICE A DAY 360 capsule 2 Active metoprolol tartrate (LOPRESSOR) 25 mg immediate release tabletIndications: Coronary atherosclerosis of [place] coronary artery,Nonrheumati c aortic valve stenosis,Essential hypertension TAKE 1 TABLET BY MOUTH TWICE A DAY 180 tablet 2 Active lisinopriL (PRINIVIL,ZESTRIL) 20 mg tabletIndications: Coronary artery disease of [place] artery of [place] heart with stable angina pectoris TAKE 1 TABLET BY MOUTH EVERY DAY 90 tablet 3 025 Active tirzepatide (Mounjaro) 2.5 mg/0.5 mL pen injector injection Inject 0.5 mL (2.5 mg total) under the skin once a week Active metOLazone (ZAROXOLYN) 2.5 mg tabletIndications: Bilateral lower extremity edema Take 1 tablet (2.5 mg total) by mouth once a week Active metOLazone (ZAROXOLYN) 2.5 mg tabletIndications: Bilateral lower extremity edema Take 1 tablet (2.5 mg total) by mouth daily as needed (swelling) 30 tablet 1 025 2024 Discontinued metOLazone (ZAROXOLYN) 2.5 mg tabletIndications: Bilateral lower extremity edema TAKE 1 TABLET (2.5 MG TOTAL) BY MOUTH DAILY NEEDED (SWELLING) 90 tablet 1 025 2024 Discontinued Active Problems Problem Noted Date [...] months. Assessment & Plan (05/04/2023 12:18 PM SALON STYLIST): He has an essentially normal exam on [...] months. Assessment & Plan (05/04/2023 12:19 PM SALON STYLIST): I think his voice sounds pretty good [...] artery disease of n ative artery of [place] heart with stable angina pectoris 06/15/2016 Overview (08/06/2016): Coronary artery disease involving [place] coronary artery of [place] heart without angina pectoris Atherosclerosis of coronary [...] PM CDT Legal Sex Male 4:04 AM SALON STYLIST Gender Identity Male 06/11/2018 5:06 PM CDT Sexual Orientation Straight 06/11/2018 5: 06 PM CDT Last Filed Vital Signs Vital Sign Reading Time Taken Comments Blood Pressure 104/52 08/16/2024 3:33 PM CDT Pulse 77 08/16/2024 3:33 PM CDT Temperature 37.1 C (98.7 F) 07/17/2021 11:19 AM CDT Respiratory Rate 18 05/22/2024 10:08 AM CDT Oxygen Saturation 95% 08/16/2024 3:33 PM CDT Inhaled Oxygen Concentration - - Weight 103.4 kg (228 lb) 08/16/2024 3:33 PM CDT Height 172.7 cm (5' 8) 08/16/2024 3:33 PM CDT Body Mass Index 34.67 08/16/2024 3:33 PM CDT Plan of Treatment Not on file Medical Devices Implanted Type Area Rn Transition Device Identifier Shelf Expiration Date Model / Serial / Lot Valve Crimper [id number] - [id number] - [id number] Implanted:Qty: 1 on 07/16/2021 by Jorge Ulloa MD at [facility] [employer] 10/19/2022 [id number] / [id number] / [employer] Device Clsr Perclose Prostyle Sut-Mediatd Closure-Repair Sys 65882-28 - [id number] Implanted:Qty: 1 on 07/16/2021 by Jorge Ulloa MD at [facility] [employer] 06/12/2023 [id number] / / [employer] Device Clsr Perclose Prostyle Sut-Mediatd Closure-Repair Sys 59140-05 - [id number] Implanted:Qty: 1 on 07/16/2021 by Jorge Ulloa MD at [facility] [employer] 06/12/2023 [id number] / / Procedures Procedure Name Priority Date/Time [...] GENERAL ORD ERABLES Final Result JOSE WILLIAM [id number] Department [place] [address] from Last 3 Months or Most Recently Relevant to Health Maintenance Insurance AETNA MEDICARE GOLD AETNA MEDICARE GOLD AETNA MEDICARE GOLD Care Teams Simulation Specialist Relationship Specialty Start Date End Date Ann-Marie Cruz MD PCP - General 06/11/16 Ann-Marie Cruz MD 06/11/16
--- OUTSIDE RECORDS SUMMARY | 2024-08-30 10:46 | XMS_ITS | Clinical Summary ---
Author Organization [facility] Address [address] [place] [address] Care Team Providers Care Lead Investigator Name Role Phone Ann-Marie Cruz MD Primary Care Provider [phone] Ann-Marie Cruz MD Unavailable [phone] Allergies Active Allergy Reactions Criticality Noted Date Comments Chlordiazepoxide Hallucinations Medium 10/15/2019 Hallucinations Chlordiazepoxide-Clidini um Other (See comments) Medium Reaction: Hallucinations, Methscopolamine Hallucinations Medium 10/15/2019 Hallucinations Niacin Flushing (skin),Redness Low 10/15/2019 Flushing Wndrhei-Bhu-Ted Reductase Inhibitors Muscle pain Medium 02/20/2020 Intolerance [...] 1 tablet (88 mcg total) by mouth global marketing specialist before breakfast 022 Active docusate sodium (COLACE) [...] A DAY 360 capsule 2 025 Active metoprolol tartrate (LOPRESSOR) 25 mg immediate release tabletIndications: Coronary atherosclerosis of [place] coronary artery,Nonrheumati c aortic valve stenosis,Essential hypertension TAKE 1 TABLET BY MOUTH TWICE A DAY 180 tablet 2 025 Active lisinopriL (PRINIVIL,ZESTRIL) 20 mg tabletIndications: Coronary artery disease of [place] artery of [place] heart with stable angina pectoris TAKE 1 TABLET BY MOUTH EVERY DAY 90 tablet 3 025 Active tirzepatide (Mounjaro) 2.5 mg/0.5 mL pen injector injection Inject 0.5 mL (2.5 mg total) under the skin once a week Active metOLazone (ZAROXOLYN) 2.5 mg tabletIndications: Bilateral lower extremity edema Take 1 tablet (2.5 mg total) by mouth once a week 025 Active metOLazone (ZAROXOLYN) 2.5 mg tabletIndications: [...] months. Assessment & Plan (05/04/2023 12:18 PM CHEMICAL PLANT TECHNICAL DIRECTOR): He has an essentially normal exam on [...] months. Assessment & Plan (05/04/2023 12:19 PM CHEMICAL PLANT TECHNICAL DIRECTOR): I think his voice sounds pretty good [...] artery disease of n ative artery of [place] heart with stable angina pectoris 06/15/2016 Overview (08/06/2016): Coronary artery disease involving [place] coronary artery of [place] heart without angina pectoris Atherosclerosis of coronary [...] Description 08/16/2024 3:30 PM CDT Office Visit [facility] Cardiology [address] [place] [address] Kendy Faith NP Bilateral lower extremity edema; S/P TAVR (transcatheter aortic valve replacement); BMI 34.0-34.9,adult 07/05/2024 2:30 PM CDT Office Visit [facility] Cardiology [address] [place] [address] Agustin Portillo MD Coronary artery disease of [place] artery of [place] heart with stable angina pectoris (Primary Dx); Essential hypertension; Hyperlipidemia LDL goal <70; S/P TAVR (transcatheter aortic valve replacement); Bilateral lower extremity edema; Severe obesity (HCC) from Last 3 Months Immunizations Immunization Administration Dates Next Due Influenza, Trivalent, IM (V) 12/12/2015 Surgical History Surgery Date Site/Laterality Comments [...] both eyes RBBB (right bundle branch block) 2016 Nonrheumatic aortic valve stenosis 2017 Bilateral lower [...] PM CDT Legal Sex Male 4:04 AM CHEMICAL PLANT TECHNICAL DIRECTOR Gender Identity Male 06/11/2018 5:06 PM CDT [...] 08/16/2024 3:33 PM CDT Plan of Treatment Health Maintenance [...] 04/04/2018, 11/21/2017 Pneumococcal vaccine 65+ Completed 05/26/2018, 0303/2017 Hepatitis C Screening Completed 07/16/2021 Medical Devices Implanted Type Area Hot Blast Worker Device Identifier Shelf Expiration Date Model / Serial / Lot Valve Crimper [id number] - [id number] - [id number] Implanted:Qty: 1 on 07/16/2021 by Jorge Ulloa MD at [facility] [employer] 10/19/2022 [id number] / [id number] / [employer] Device Clsr Perclose Prostyle Sut-Mediatd Closure-Repair Sys 59015-34 - [id number] Implanted:Qty: 1 on 07/16/2021 by Jorge Ulloa MD at [facility] 06/12/2023 [id number] / / [employer] Device Clsr Perclose Prostyle Sut-Mediatd Closure-Repair Sys 40768-19 - [id number] Implanted:Qty: 1 on 07/16/2021 by Jorge Ulloa MD at [facility] 06/12/2023 [id number] / / Procedures Procedure Name Priority Date/Time [...] - GENERAL ORD ERABLES Final Result JOSE [id number] Department [place] [address] from Last 3 Months or Most Recently Relevant to Health Maintenance Insurance T MEDICARE GOLD AET MEDICARE GOLD AETNA MEDICARE GOLD Care Teams Lead Investigator Relationship Specialty Start Date End Date Ann-Marie Cruz MD PCP - General 06/11/16 Ann-Marie Cruz MD 06/11/16
--- OUTSIDE RECORDS SUMMARY | 2024-08-30 10:46 | XMS_ITS | Encounter Summary ---
Author Organization [facility] Address [address] [facility] [address] [place] [address] Care Team Providers Care Combat Systems Engineer Name Role Phone Ann-Marie Cruz MD Primary Care Provider [phone] Ann-Marie Cruz MD Primary Care Provider [phone] Ann-Marie Cruz MD Unavailable [phone] Ann-Marie Cruz MD Primary Care Provider [phone] Encounter Details Date Type Department Care Team (Late st Contact Info) Description 01/29/2010 Orders Only [facility] ProviderAbelardo MD [address] [place] [address] Social History Tobacco Use Types Packs/Day Years Used Date Smoking Tobacco: Never Assessed Sex and Gender Information Value Date Recorded Sex Assigned at Male 06/11/2018 5:06 PM CDT Legal Sex Male 4:04 AM AUTOMAT WATCHER Gender Identity Male 06/11/2018 5:06 PM CDT [...] on filedocumented in this encounter Care Teams Combat Systems Engineer Relationship Specialty Start Date End Date Ann-Marie Cruz MD PCP - General 04/30/16 06/10/16 Ann-Marie Cruz MD PCP - General 06/11/16 Ann-Marie Cruz MD PCP - General 07/16/15 04/29/16 Ann-Marie Cruz MD 06/11/16 documented as of this encounter
--- OUTSIDE RECORDS SUMMARY | 2024-08-30 10:46 | XMS_ITS | Clinical Summary ---
Author Organization [facility] Address [address] [address] Phone Care Team Providers Care Manager Fund Name Role Phone Ann-Marie Cruz MD Primary Care Provider [phone] Medications polyethylene glycol (MIRALAX) Powder Mix the [...] (Adult) (1 - 1-dose 75+ series) 2026 Hepatitis B Immunization Aged Out No longer eligible based on patient's age to complete this topic Meningococcal Immunization (ACWY) Aged Out No longer eligible b ased on patient's age to complete this topic Rotavirus Immunization Aged Out No lo nger eligible based on patient's age to complete this topic Procedures Procedure Name Priority Date/Time Associated Diagnosis Comments HM COLONOSCOPY Routine 07/31/2020 from Last 3 Months or Most Recently Relevant to Health Maintenance Results * HM COLONOSCOPY (07/31/2020) Joe Guadalupe DO PROCEDURE/MINOR SURGICAL ORDERA BLES Final Result from Last 3 Months or Most Recently Relevant to Health Maintenance Insurance MEDICARE C AETNA Care Teams Manager Fund Relationship Specialty Start Date End Date Ann-Marie Cruz MD [address] [place] [address] PCP - General Family Medicine 12/14/16
--- OUTSIDE RECORDS SUMMARY | 2024-08-30 10:46 | XMS_ITS | Encounter Summary ---
Author Organization [facility] Address [address] [place] [address] Care Team Providers Care Frame Feeder Name Role Phone Ann-Marie Cruz MD Primary Care Provider [phone] Encounter Details Date Type Department Care Team (Late st Contact Info) Description 08/28/2024 External Device Data [facility] ABSTRACTION Provider, Abstract NO ADDRESS ON FILE Social History Tobacco Use Types Packs/Day Years Used Date Smoking Tobacco: Former Cigarettes 1 32 0 10/12/1969 - 10/12/2001 Smokeless Tobacco: Never Alcohol Use Standard Drinks/Week Comments Never 0 (1 standard drink = 0.6 oz pur e alcohol) Socially Sex and Gender Information Value Date Recorded Sex Assigned at Not on file Legal Sex Male 4:09 PM AIRCRAFT ELECTRICIAN Gender Identity Not on file Sexual Orientation Not on file documented as of this encounter Plan of Treatment Upcoming Encounters Date Type Department Care Team (Late st Contact Info) Description 10/18/2024 10:15 AM CDT Office Visit [facility] Oncology and Hematology - [place] [address] [facility] [address] [place] [address] Som Wolfe MD [address] [facility] [address] [place] [address] documented as of this encounter Visit Diagnoses Not on filedocumented in this encounter Care Teams Frame Feeder Relationship Specialty Start Date End Date Ann-Marie Cruz MD [address] [place] [address] PCP - General Family Practice 05/10/23 documented as of this encounter
--- OUTSIDE RECORDS SUMMARY | 2024-08-30 10:46 | XMS_ITS | Clinical Summary ---
Author Organization [facility] Address [address] [place] [address] [place] [address] Care Team Providers Care Freight Traffic Consultant Name Role Phone Ann-Marie Cruz MD Primary Care Provider [phone] Allergies Active Allergy Reactions Criticality Noted Date Comments Chlordiazepoxide Hallucination Medium 10/15/2019 Hallucinations Chlordiazepoxide-Clidin ium Other (See Comments) Medium 05/10/2023 Reaction: Hallucinations, Methscopolamine Hallucination Medium 10/15/2019 Hallucinations Niacin Other (See Comments),Rash Low 10/15/2019 Flushing Bckiaut-Qcf-Ige Reductase Inhibitors Muscle Pain Medium 02/20/2020 Intolerance [...] injection every 2 weeks. Active Vit C-Vit P-Cgkryi-JxOw-L utein (PRESERVISION) 226-90-0.8-5 mg Capsule Take 1 Capsule by mouth daily. Active Active Problems No known active problems Encounters Date Type Department Care Team Description 08/28/2024 External Device Data STL ABSTRACTION Provider, Abstract 08/07/2024 External Device Data STL ABSTRACTION Provider, Abstract 08/02/2024 External Device Data ST[facility] ABSTRACTION Provider, Abstract 08/01/2024 External Device Data STL ABSTRACTION Provider, Abstract 07/31/2024 External Device Data STL ABSTRACTION Provider, Abstract 06/26/2024 External Device Data STL ABSTRACTION Provider, [...] on file Legal Sex Male 4:09 PM VALUE ENGINEER Gender Identity Not on file Sexual Orientation Not on file Last Filed Vital Signs Vital Sign Reading Time Taken Comments Blood Pressure 127/64 04/18/2024 2:23 PM VALUE ENGINEER Pulse 56 04/18/2024 2:23 PM VALUE ENGINEER Temperature 36.2 C (97.2 F) 04/18/2024 2:23 PM VALUE ENGINEER Respiratory Rate 18 04/18/2024 2:23 PM VALUE ENGINEER Oxygen Saturation 93% 04/18/2024 2:23 PM VALUE ENGINEER Inhaled Oxygen Concentration - - Weight 99.8 kg (220 lb) 04/18/2024 2:23 PM VALUE ENGINEER Height 172.7 cm (5' 8) 05/10/2023 10:38 AM VALUE ENGINEER Body Mass Index 33.45 05/10/2023 10:38 AM VALUE ENGINEER Plan of Treatment Upcoming Encounters Date Type Department Care Team (Late st Contact Info) Description 10/18/2024 10:15 AM CDT Office Visit [facility] Oncology and Hematology - [place] [address] [facility] [address] [place] [address] Som Wolfe MD [address] [facility] [address] [place] [address] Health Maintenance Due Date Last [...] Cancer Screening 07/31/2030 Insurance AETNA O [facility] Address: [facility] [id number] [id number] Care Teams Freight Traffic Consultant Relationship Specialty Start Date End Date Ann-Marie Cruz MD [address] [place] [address] PCP - General Family Practice 05/10/23
--- OUTSIDE RECORDS SUMMARY | 2024-08-30 10:46 | XMS_ITS ---
Author Organization [facility] Address [address] [place] [address] Care Team Providers Care Stunt Double Name Role Phone Ann-Marie Cruz MD Primary Care Provider [phone] Ann-Marie Cruz MD Unavailable [phone] Active Problems Problem Noted Date Diagnosed [...] months. Assessment & Plan (05/04/2023 12:18 PM VEHICLE DYNAMICS ENGINEER): He has an essentially normal exam on [...] months. Assessment & Plan (05/04/2023 12:19 PM VEHICLE DYNAMICS ENGINEER): I think his voice sounds pretty good [...] artery disease of n ative artery of lower [place] heart with stable angina pectoris 06/15/2016 Overview (08/06/2016): Coronary artery disease involving lower [place] coronary artery of lower [place] heart without angina pectoris Atherosclerosis of coronary [...]
--- OUTSIDE RECORDS SUMMARY | 2024-08-30 10:46 | XMS_ITS | Encounter Summary ---
Author Organization [facility] Address [address] [facility] [address] [place] [address] Care Team Providers Care Soap Worker Name Role Phone Ann-Marie Cruz MD Primary Care Provider [phone] Ann-Marie Cruz MD Primary Care Provider [phone] Ann-Marie Cruz MD Unavailable [phone] Ann-Marie Cruz MD Primary Care Provider [phone] Encounter Details Date Type Department Care Team (Late st Contact Info) Description 04/28/2016 Orders Only [facility] ProviderAbelardo MD [address] [place] [address] Social History Tobacco Use Types Packs/Day Years Used Date Smoking Tobacco: Never Alcohol Use Standard Drinks/Week Comments No 0 (1 standard drink = 0.6 oz pur e alcohol) Sex and Gender Information Value Date Recorded Sex Assigned at Male 06/11/2018 5:06 PM CDT Legal Sex Male 4:04 AM IDENTITY MANAGEMENT CONSULTANT Gender Identity Male 06/11/2018 5:06 PM CDT [...] on filedocumented in this encounter Care Teams Soap Worker Relationship Specialty Start Date End Date Ann-Marie Cruz MD PCP - General 04/30/16 06/10/16 Ann-Marie Cruz MD PCP - General 06/11/16 Ann-Marie Cruz MD PCP - General 07/16/15 04/29/16 Ann-Marie Cruz MD 06/11/16 documented as of this encounter
== END 2024-08-30 10:02 | disposition home or self-care (01) ==
LOC: ANHLAB 10:03
PROVIDERS: PCP Family Medicine; Visit Provider Internal Medicine Cardiovascular Disease
DX: R60.0 Localized edema (principal); I25.118 Atherosclerotic heart disease of native coronary artery with other forms of angina pectoris; I10 Essential (primary) hypertension
CPT/HCPCS: 36415; 80053; 99212; G0463

== ENCOUNTER 2024-10-17 08:10 | Outpatient (CLI) | payer MEDICARE, SELFPAY ==
--- OUTSIDE RECORDS SUMMARY | 2024-10-17 08:16 | XMS_ITS | Continuity of Care Document ---
Author Organization [facility] Address [address] [place] [address] Phone Care Team Providers Care Key Bed Installer Name Role Phone Ministerio Wharton MD Unavailable Unavailable Advance Directives Directive Yes / No Effective Date File Name No Information Encounters Encounter Description Practice Location Reason(s) For Visit Diagnoses Date Provider Providers Copied on Encounter [facility], [address], [place], [place], [id number], [place] tel:[phone] [facility] No Information Akiko Mandel. [address], [address], [place], [address], [place]. tel:[phone] Family History Family Member Type Diagnosis Age At Onset No Information Payers Payer name Insurance type Covered democrat ID Authoriza tion(s) No Information Social History [...]
--- OUTSIDE RECORDS SUMMARY | 2024-10-17 08:17 | XMS_ITS | Encounter Summary ---
Author Organization [facility] Address [address] [facility] [address] [place] [address] Care Team Providers Care Starch Mangle Tender Name Role Phone Ann-Marie Cruz MD Primary Care Provider [phone] Ann-Marie Cruz MD Primary Care Provider [phone] Ann-Marie Cruz MD Unavailable [phone] Ann-Marie Cruz MD Primary Care Provider [phone] Encounter Details Date Type Department Care Team (Late st Contact Info) Description 01/29/2010 Orders Only [facility] ProviderAbelardo MD [address] [place] [address] Social History Tobacco Use Types Packs/Day Years Used Date Smoking Tobacco: Never Assessed Sex and Gender Information Value Date Recorded Sex Assigned at Male 06/11/2018 5:06 PM CDT Legal Sex Male 4:04 AM SAFETY EQUIPMENT TESTING SPECIALIST Gender Identity Male 06/11/2018 5:06 PM CDT [...] on filedocumented in this encounter Care Teams Starch Mangle Tender Relationship Specialty Start Date End Date Ann-Marie Cruz MD PCP - General 04/30/16 06/10/16 Ann-Marie Cruz MD PCP - General 06/11/16 Ann-Marie Cruz MD PCP - General 07/16/15 04/29/16 Ann-Marie Cruz MD 06/11/16 documented as of this encounter
--- OUTSIDE RECORDS SUMMARY | 2024-10-17 08:17 | XMS_ITS | Clinical Summary ---
Author Organization [facility] Eulogio Hurley Address [address] [place] [address] Care Team Providers Care Convention Planner Name Role Phone Ann-Marie Cruz MD Primary Care Provider [phone] Allergies Active Allergy Reactions Criticality Noted Date Comments Chlordiazepoxide Hallucination Medium 10/15/2019 Hallucinations Chlordiazepoxide-Clidin ium Other (See Comments) Medium 05/10/2023 Reaction: Hallucinations, Methscopolamine Hallucination Medium 10/15/2019 Hallucinations Niacin Other (See Comments),Rash Low 10/15/2019 Flushing Zjbuavv-Wbu-Dix Reductase Inhibitors Muscle Pain Medium 02/20/2020 Intolerance [...] tablet Take 20 mEq by mouth daily. 3 Active aspirin (ECOTRIN EC) 81 mg [...] injection every 2 weeks. Active Vit C-Vit T-Gyliox-IkGr-L utein (PRESERVISION) 226-90-0.8-5 mg Capsule Take 1 Capsule by mouth daily. Active Active Problems No known active problems Encounters Date Type Department Care Team Description 10/16/2024 External Device Data STL ABSTRACTION Provider, Abstract 08/28/2024 External Device Data STL ABSTRACTION Provider, [...] on file Legal Sex Male 4:09 PM MARINE EQUIPMENT SALES ENGINEER Gender Identity Not on file Sexual Orientation Not on file Last Filed Vital Signs Vital Sign Reading Time Taken Comments Blood Pressure 127/64 04/18/2024 2:23 PM MARINE EQUIPMENT SALES ENGINEER Pulse 56 04/18/2024 2:23 PM MARINE EQUIPMENT SALES ENGINEER Temperature 36.2 C (97.2 F) 04/18/2024 2:23 PM MARINE EQUIPMENT SALES ENGINEER Respiratory Rate 18 04/18/2024 2:23 PM MARINE EQUIPMENT SALES ENGINEER Oxygen Saturation 93% 04/18/2024 2:23 PM MARINE EQUIPMENT SALES ENGINEER Inhaled Oxygen Concentration - - Weight 99.8 kg (220 lb) 04/18/2024 2:23 PM MARINE EQUIPMENT SALES ENGINEER Height 172.7 cm (5' 8) 05/10/2023 10:38 AM MARINE EQUIPMENT SALES ENGINEER Body Mass Index 33.45 05/10/2023 10:38 AM MARINE EQUIPMENT SALES ENGINEER Plan of Treatment Upcoming Encounters Date Type Department Care Team (Late st Contact Info) Description 10/18/2024 10:15 AM CDT Office Visit [facility] Oncology and Hematology - [place] [address] [facility] [address] [place] [address] Som Wolfe MD [address] [facility] [address] [place] [address] Health Maintenance Due Date Last Done Comments DTAP/TDAP/TD VACCINES (1 - Tdap) 1970 PNEUMOCOCCAL VACCINE 50+ YEARS (1 of 2 - PCV) 02/13/19 70 FIT-DNA Q 3 years 02/14/1996 FIT/FOBT Q 1 year 02/14/1996 Flex Sig/CT Colonography Q 5 years 02/14/1996 ZOSTER VACCINE (1 of 2) 2001 Abdominal Aortic Aneurysm (AAA) Screening 02/14/2016 Medicare Ad[place]age ([place]) Prev entative Visit/Annual Wellness Visit 03/14/2024 INFLUENZA VACCINE (#1) 2024 12/12/2015 RSV VACCINE (60+ or ) (1 - 1-dose 75+ series) 2026 COLORECTAL SCREENING 07/31/2030 07/31/2020 Colorectal Cancer Screening 07/31/2030 Insurance AETNA O MCR Care Teams Convention Planner Relationship Specialty Start Date End Date Ann-Marie Cruz MD [address] [place] [id number] PCP - General Family Practice 05/10/23
--- OUTSIDE RECORDS SUMMARY | 2024-10-17 08:17 | XMS_ITS | Encounter Summary ---
Author Organization [facility] Address 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 Gender Identity Not on file Sexual Orientation Not on file documented as of this encounter Plan of Treatment Upcoming Encounters Date Type Department Care Team (Late st Contact Info) Description 10/18/2024 10:15 AM CDT Office Visit [facility] Oncology and Hematology - [place] [address] [facility] [address] [place] [address] Som Wolfe MD [address] [facility] [address] [place] [address] documented as of this encounter Visit Diagnoses Not on filedocumented in this encounter Care Teams Toy Packer Relationship Specialty Start Date End Date Ann-Marie Cruz MD [address] [place] [phone] PCP - General Family Practice 05/10/23 documented as of this encounter
--- OUTSIDE RECORDS SUMMARY | 2024-10-17 08:17 | XMS_ITS | Clinical Summary ---
Author Organization [facility] Address [address] [place] [address] Care Team Providers Care Line Clearance Foreman Name Role Phone Ann-Marie Cruz MD Primary Care Provider [phone] Ann-Marie Cruz MD Unavailable [phone] Allergies Active Allergy Reactions Criticality Noted Date Comments Chlordiazepoxide Hallucinations Medium 10/15/2019 Hallucinations Chlordiazepoxide-Clidini um Other (See comments) Medium Reaction: Hallucinations, Methscopolamine Hallucinations Medium 10/15/2019 Hallucinations Niacin Flushing (skin),Redness Low 10/15/2019 Flushing Gvbnhuv-Tzd-Wum Reductase Inhibitors Muscle pain Medium 02/20/2020 Intolerance (myalgia) Atorvastatin 40 mg Medications loratadine (CLARITIN) 10 mg tablet take 1 tablet by oral route every day 0 0 04/28/19 17 Active aspirin (ASPIRIN LOW DOSE) 81 mg tablet take 1 tablet by oral route every day 0 0 06/16/19 17 Active finasteride (PROSCAR) 5 mg tablet Take 1 tablet (5 mg total) by mouth daily with dinner 4 08/03/19 19 Active doxycycline (ADOXA) 100 mg tablet Take 1 tablet (100 mg total) by mouth 2 (two) times a day 1 upon rising and 1 with dinner 07/03/19 20 Active vit C/E/Zn/coppr/lutein /zeaxan (PRESERVISION AREDS-2 ORAL) Take 1 capsule by mouth 2 (two) times a day with breakfast and lunch 01/28/20 Active levothyroxine (SYNTHROID) 88 mcg tablet Take 1 tablet (88 mcg total) by mouth chemical economist before breakfast 03/24/19 22 Active docusate sodium (COLACE) 100 mg capsule TAKE 1 CAPSULE BY MOUTH TWICE A DAY NEEDED FOR CONSTIPATION 10/30/19 22 Active ferrous gluconate 324 mg (38 mg of elemental iron) tablet Take 1 tablet (324 mg total) by mouth daily 04/24/19 23 Active metroNIDAZOLE (METROGEL) 1 % gel Apply topically daily Active ascorbic acid (vitamin C) 250 mg tablet Take 1 tablet (250 mg total) by mouth daily Active amoxicillin (AMOXIL) 500 mg tablet/capsule Take 4 caps (2000 mg) 1 hour prior to procedure. 4 tablet/caps ule 5 06/01/19 24 Active Additional Information Patient not taking.Reported on 08/16/2024 furosemide (LASIX) 20 mg tabletIndications:E liseth, lower extremity TAKE 1 TABLET BY MOUTH TWICE A DAY 180 tablet 3 01/30/20 24 Active Vascepa 1 gram capsule TAKE 2 CAPSULES BY MOUTH TWICE A DAY 360 capsule 2 06/12/19 25 Active metoprolol tartrate (LOPRESSOR) 25 mg immediate release tabletIndications:C oronary atherosclerosis of [place] coronary artery,Nonrheumatic aortic valve stenosis,Essential hypertension TAKE 1 TABLET BY MOUTH TWICE A DAY 180 tablet 2 07/10/19 25 Active lisinopriL (PRINIVIL,ZESTRIL) 20 mg tabletIndications: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 TAKE 1 TABLET BY MOUTH EVERY DAY 90 tablet 3 07/10/19 25 Active tirzepatide (Mounjaro) 2.5 mg/0.5 mL pen injector injection Inject 0.5 mL (2.5 mg total) under the skin once a week Active metOLazone (ZAROXOLYN) 2.5 mg tabletIndications:B ilateral lower extremity edema Take 1 tablet (2.5 mg total) by mouth once a week 08/17/19 25 Active potassium chloride ER 20 mEq CR tablet TAKE 1 TABLET BY MOUTH EVERY DAY 90 tablet 3 09/07/19 25 Active evolocumab (Repatha SureClick) 140 mg/mL pen injector Inject 1 mL (140 mg total) under the skin every 14 (fourteen) days 6 mL 3 09/18/19 25 Active Active Problems Problem Noted Date Diagnosed Date [...] months. Assessment & Plan (05/04/2023 12:18 PM EXCAVATION LABORER): He has an essentially normal exam on [...] months. Assessment & Plan (05/04/2023 12:19 PM EXCAVATION LABORER): I think his voice sounds pretty good [...] artery disease of n ative artery of [place] heart with stable angina pectoris 06/15/2016 Overview (08/06/2016): Coronary artery disease involving [place] coronary artery of [place] heart without angina pectoris Atherosclerosis of coronary [...] Description 08/16/2024 3:30 PM CDT Office Visit [facility] [address] [place] [address] Kendy Faith NP Bilateral lower extremity edema; S/P TAVR (transcatheter aortic valve replacement); BMI 34.0-34.9,adult from Last 3 Months Immunizations Immunization Administration [...] PM CDT Legal Sex Male 4:04 AM EXCAVATION LABORER Gender Identity Male 06/11/2018 5:06 PM CDT [...] Fall Risk Assessment 07/17/2022 07/17/2021 Covid-19 Vaccine (4 - 2023-2 5 season) 2023 01/20/2021, 06/02/2020, 04/30/2020 Influenza Vaccine (#1) 2024 , 12/04/2019, 12/19/2018, Additional history exists Zoster Vaccine Completed 04/04/2018, 11/21/2017 Pneumococcal vaccine 65+ Completed 05/26/2018, 03/2017 Hepatitis C Screening Completed 07/16/2021 Medical Devices Implanted Type Area Insurance Salesman Device Identifier Shelf Expiration Date Model / Serial / Lot Valve Crimper [id number] - [id number] - [id number] Implanted:Qty: 1 on 07/16/2021 by Jorge Ulloa MD at [facility] [employer] 10/19/2022 [id number] / [id number] / [employer] Device Clsr Perclose Prostyle Sut-Mediatd Closure-Repair Sys [id number] - [id number] Implanted:Qty: 1 on 07/16/2021 by Jorge Ulloa MD at [facility] [employer] 06/12/2023 [id number] / / [employer] Device Clsr Perclose Prostyle Sut-Mediatd Closure-Repair Sys 15331-43 - [id number] Implanted:Qty: 1 on 07/16/2021 by Jorge Ulloa MD at [facility] [employer] 06/12/2023 [id number] / / Procedures Procedure Name Priority Date/Time Associated Diagnosis Comments COMPREHENSIVE METABOLIC PANEL Routine 08/30/2024 Coronary artery disease of [place] artery of [place] heart with stable angina pectoris Essential hypertension Bilateral lower extremity edema LIPID PANEL Routine 07/26/2024 Hyperlipidemia LDL goal <70 HEPATITIS C ANTIBODY Routine 07/16/2021 9:29 AM CDT from Last 3 Months or Most Recently Relevant to Health Maintenance Results * (ABNORMAL) Comprehensive metabolic panel (08/30/2024) SCRIBED Sodium 138 137 - 145 mmol/L EXTERNAL LAB SCRIBED Potassium 3.8 3.4 - 5.0 mmol/L EXTERNAL LAB SCRIBED Chloride 102 98 - 107 mmol/L EXTERNAL LAB SCRIBED Carbon Dioxide 25 22 - 30 mmol/L EXTERNAL LAB SCRIBED Anion Gap 11 4 - 12 mmol/L EXTERNAL LAB SCRIBED Urea Nitrogen (BUN) 29(A) 9 - 20 mg/dl EXTERNAL LAB SCRIBED Creatinine 1.00 0.7 - 1.3 mg/dl EXTERNAL LAB SCRIBED Glucose 115(A) 65 - 110 mg/dl EXTERNAL LAB SCRIBED Calcium 9.4 8.4 - 10.2 mg/dl EXTERNAL LAB SCRIBED Bilirubin 0.4 0.2 - 1.3 mg/dl EXTERNAL LAB SCRIBED Plasma Protein 6.9 6.3 - 8.2 g/dl EXTERNAL LAB SCRIBED Albumin 4.4 3.5 - 5.1 g/dl EXTERNAL LAB SCRIBED Alkaline Phosphatase 72 38 - 126 Units/L EXTERNAL LAB SCRIBED Alanine Transaminase (ALT) 31 6 - 50 Units/L EXTERNAL LAB SCRIBED Aspartate Transaminase (AST) 34 17 - 59 Units/L EXTERNAL LAB SCRIBED eGFR in N/A N/A EXTERNAL LAB SCRIBED eGFR in NonAfrican Egyptian >60 = or > 60 EXTERNAL LAB Blood 08/30/2024 Agustin Portillo MD LAB BLOOD ORDERABLES Brigitte l Result EXTERNAL LAB * (ABNORMAL) Lipid panel (07/26/2024) Pathologist [facility] SCRIBED Cholesterol, Total 86 30 - 199 mg/dL EXTERNAL LAB SCRIBED Triglycerides 340(A) <=149 mg/dL EXTERNAL LAB SCRIBED HDL 30(A) >=40 mg/dL EXTERNAL LAB SCRIBED LDL 29 <=129 mg/dL EXTERNAL LAB Scribed Non-HDL Cholesterol EXTERNAL LAB Comment:Not performed by lab . SCRIBED Total Cholesterol/HDL Ratio EXTERNAL LAB Comment:Not performed by lab . Blood 07/26/2024 Agustin Portillo MD LAB BLOOD ORDERABLES Brigitte l Result EXTERNAL LAB * Hepatitis C antibody (07/16/2021 9:29 AM [...] - GENERAL [place] [id number] Abbi Rodriguez Department [place] [address] from Last 3 Months or Most Recently Relevant to Health Maintenance Insurance [facility] MEDICARE GOLD AETNA MEDICARE GOLD AETNA MEDICARE GOLD Care Teams Line Clearance Foreman Relationship Specialty Start Date End Date Ann-Marie Cruz MD PCP - General 06/11/16 Ann-Marie Cruz MD 06/11/16
--- OUTSIDE RECORDS SUMMARY | 2024-10-17 08:17 | XMS_ITS | Encounter Summary ---
Author Organization [facility] Address [address] [facility] [address] [place] [address] Care Team Providers Care Hostess Name Role Phone Ann-Marie Cruz MD Primary Care Provider [phone] Ann-Marie Cruz MD Primary Care Provider [phone] Ann-Marie Cruz MD Unavailable [phone] Ann-Marie Cruz MD Primary Care Provider [phone] Encounter Details Date Type Department Care Team (Late st Contact Info) Description 04/28/2016 Orders Only [facility] ProviderAbelardo MD [address] [place] [address] Social History Tobacco Use Types Packs/Day Years Used Date Smoking Tobacco: Never Alcohol Use Standard Drinks/Week Comments No 0 (1 standard drink = 0.6 oz pur e alcohol) Sex and Gender Information Value Date Recorded Sex Assigned at Male 06/11/2018 5:06 PM CDT 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
--- OUTSIDE RECORDS SUMMARY | 2024-10-17 08:17 | XMS_ITS ---
Author Organization [facility] Address [address] [place] [address] Care Team Providers Care Informatica Mdm Developer Name Role Phone Ann-Marie Cruz MD Primary Care Provider [phone] Ann-Marie Cruz MD Unavailable [phone] Active Problems Problem Noted Date Diagnosed Date [...] months. Assessment & Plan (05/04/2023 12:18 PM MANAGER RECOVERY): He has an essentially normal exam on [...] months. Assessment & Plan (05/04/2023 12:19 PM MANAGER RECOVERY): I think his voice sounds pretty good [...] artery disease of n ative artery of [place] heart with stable angina pectoris 06/15/2016 Overview (08/06/2016): Coronary artery disease involving [place] coronary artery of [place] heart without angina pectoris Atherosclerosis of coronary [...]
--- OUTSIDE RECORDS SUMMARY | 2024-10-17 08:17 | XMS_ITS | Clinical Summary ---
Author Organization [facility] Address [address] [address] Phone Care Team Providers Care Shuttle Filler Name Role Phone Ann-Marie Cruz MD Primary Care Provider [phone] Medications polyethylene glycol (MIRALAX) Powder Mix the [...] (HCV) Screening 1950 TdaP Immunization 1950 Cologuard 02/14/1996 Immunochemical Fecal Occult Blood 02/14/1996 Pneumococcal Immunization (5 0+ years) (1 of 1 - PCV) 2001 Zoster Immunization (1 of 2) 2001 Colonoscopy 08/01/2023 07/31/2020, 04/19/2017 Colorectal Cancer Screening 08/01/2023 SARS-COV-2 Immunization (1 - 2023- season) 2023 Influenza Immunization (#1) 2024 Respiratory Syncytial Virus (RSV) Immunization (Adult) (1 - 1-dose 75+ series) 2026 Hepatitis B Immunization Aged Out No longer eligible based on patient's age to complete this topic Human Papillomavirus (HPV) Immunization Aged Out No longer eligible b ased [...] Maintenance Insurance MEDICARE C AETNA Care Teams Shuttle Filler Relationship Specialty Start Date End Date Ann-Marie Cruz MD [address] [place] [address] PCP - General Family Medicine 12/14/16
[2024-10-17 08:41] LABS: Hematocrit 42.8 % (42.0-52.0); Hemoglobin 14.2 g/dL (14.0-18.0); Immature Granulocyte Percent A 1.0 % (0-0.5); Lymphocytes Absolute Auto 1.69 K/mm3 (0.9-3.2); Mean Corpuscular HGB Conc 33.2 g/dl (32-36); Mean Corpuscular Hemoglobin 29.3 pg (26-34); Mean Corpuscular Volume 88.2 fl (80-100); Nucleated Red Blood Cells Absolute Auto 0.000 K/mm3 (0.0-0.012); Nucleated Red Blood Cells Perc 0.0 % (0.0-0.2); Platelet Count Result 208 k/mm3 (150-375); Red Blood Count 4.85 M/mm3 (4.6-6.20); White Blood Count 5.0 K/mm3 (4.5-10.0)
[2024-10-17 09:09] LABS: Anion Gap 7 mmol/L (4-12); Blood Urea Nitrogen 17 mg/dL (9-20); Calcium 9.1 mg/dL (8.4-10.2); Carbon Dioxide 26 mmol/L (22-30); Chloride 105 mmol/L (98-107); Estimated Glomerular Filt Rate > 60; Glucose 93 mg/dL (65-110); Potassium 4.0 mmol/L (3.4-5.0); Sodium 138 mmol/L (137-145)
[2024-10-17 09:40] LABS: Iron 78 ug/dL (49-181)
[2024-10-17 09:49] LABS: Percent Iron Saturation 22 % (20-50)
[2024-10-17 10:21] LABS: Ferritin 38.80 ng/mL (11.1-264); Vitamin B12 657.0 pg/mL (239-931)
== END 2024-10-17 08:11 | disposition home or self-care (01) ==
LOC: ANHLAB 08:12
PROVIDERS: PCP Family Medicine; Visit Provider Internal Medicine Hematology & Oncology
DX: D64.9 Anemia, unspecified (principal)
CPT/HCPCS: 36415; 80048; 82607; 82728; 82746; 83540; 83550; 85025; 99212; G0463

== ENCOUNTER 2024-12-28 00:39 | Day surgery (SDC) | payer MEDICARE, SELFPAY ==
--- OUTSIDE RECORDS SUMMARY | 2014-10-21 06:09 | XMS_ITS | Continuity of Care Document ---
Author Organization [facility] Address [address] [place] [address] Phone Care Team Providers Care Facing Slitter Name Role Phone Ministerio Wharton MD Unavailable Unavailable Advance Directives Directive Yes / No Effective Date File Name No Information Encounters Encounter Description Practice Location Reason(s) For Visit Diagnoses Date Provider Providers Copied on Encounter [facility], [address], [place], [place], [id number], [place] tel:[phone] [facility] No Information Akiko Mandel. [address], [address], [place], [address], [place]. tel:[phone] Family History Family Member Type Diagnosis Age At Onset No Information Payers Payer name Insurance type Covered green party ID Authoriza tion(s) No Information Social History Type Description Quantity Date Captured Comments Sex Male Smoking Status No Information Chief Complaint And Reason For Visit No Information Reason For Referral Reason For Referral No Information History Of Present Illness Encounter Date Complaint History Of Prese nt Illness No Information Functional Status Date Functional Assessmen t No Information Instructions Date Instruction Additional Infor mation No Information Assessments Type Assessment Date No Information Patient Care Teams Name Effective Dates (start - stop) Status Members No Information
[2024-12-27 14:27] VITALS: BMI 32.0
[2024-12-28] VITALS (9 sets, daily range): BP systolic 94–157; BP diastolic 62–108; PULSE 72–113; RESP 13–20; TEMP 36.2; O2SAT 96–100
--- OUTSIDE RECORDS SUMMARY | 2024-12-28 00:42 | XMS_ITS | Encounter Summary ---
Author Organization [facility] Address [address] [facility] [address] [place] [address] Care Team Providers Care Postpartum Rn Name Role Phone Ann-Marie Cruz MD Primary Care Provider [phone] Ann-Marie Cruz MD Primary Care Provider [phone] Ann-Marie Cruz MD Unavailable [phone] Ann-Marie Cruz MD Primary Care Provider [phone] Encounter Details Date Type Department Care Team (Late st Contact Info) Description 01/29/2010 Orders Only [facility] ProviderAbelardo MD [address] [place] [address] Social History Tobacco Use Types Packs/Day Years Used Date Smoking Tobacco: Never Assessed Sex and Gender Information Value Date Recorded Sex Assigned at Male 06/11/2018 5:06 PM CDT 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
--- OUTSIDE RECORDS SUMMARY | 2024-12-28 00:42 | XMS_ITS | Clinical Summary ---
Author Organization [facility] Address [address] [place] [address] Care Team Providers Care Hub Borer Name Role Phone Ann-Marie Cruz MD Primary Care Provider [phone] Ann-Marie Cruz MD Unavailable [phone] Allergies Active Allergy Reactions Criticality Noted Date Comments Chlordiazepoxide Hallucinations Medium 10/15/2019 Hallucinations Chlordiazepoxide-Clidini um Other (See comments) Medium Reaction: Hallucinations, Methscopolamine Hallucinations Medium 10/15/2019 Hallucinations Niacin Flushing (skin),Redness Low 10/15/2019 Flushing Nfruyvp-Ljx-Yyw Reductase Inhibitors Muscle pain Medium 02/20/2020 Intolerance [...] 1 tablet (88 mcg total) by mouth acetylene gas compressor before breakfast 022 Active docusate sodium (COLACE) [...] prior to procedure. 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 TAKE 1 TABLET BY MOUTH EVERY DAY 90 tablet 3 025 Active metOLazone (ZAROXOLYN) 2.5 mg tabletIndications: Bilateral lower extremity edema Take 1 tablet (2.5 mg total) by mouth once a week 025 Active potassium chloride ER 20 mEq CR tablet TAKE 1 TABLET BY MOUTH EVERY DAY 90 tablet 3 025 Active evolocumab (Repatha SureClick) 140 mg/mL pen injector Inject 1 mL (140 mg total) under the skin every 14 (fourteen) days 6 mL 3 025 Active furosemide (LASIX) 20 mg tabletIndications: Edema, lower extremity TAKE 1 TABLET BY MOUTH TWICE A DAY 180 tablet 3 025 Active escitalopram (LEXAPRO) 10 mg tablet Take 1 tablet (10 mg total) by mouth daily Active Mounjaro 7.5 mg/0.5 mL pen injector injection 7.5 MG (0.5 ML) SUBCUTANEOUSLY WEEKLY 025 Active magnesium oxide 500 mg capsule Take 1 capsule by mouth daily Active apixaban (ELIQUIS) 5 mg tabletIndications: atrial flutter Take 1 tablet (5 mg total) by mouth 2 (two) times a day 180 tablet 3 025 2025 Active tirzepatide (Mounjaro) 2.5 mg/0.5 mL pen injector injection Inject 0.5 mL (2.5 mg total) under the skin once a week 2024 Discontin ued(No longer taking - Do not display on AVS) Active Problems Problem Noted Date Diagnosed Date Atypical atrial flutter 12/20/2024 Severe obesity 07/05/2024 Stenosis of right carotid artery 11/12/2021 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 Everything looks great. Larynx looks essentially normal. I am recommending no further intervention. At this point he is going to follow up with me as needed. Assessment & Plan (05/22/2024 7:15 PM CDT): [...] months. Assessment & Plan (05/04/2023 12:18 PM SECURITY AND PRIVACY CONSULTANT): He has an essentially normal exam on [...] 6 months. Hoarseness 10/27/2021 Assessment & Plan (11/24/2024 1:08 PM CDT): This changes in severity deviated usually pretty mild. I am recommending no intervention. If he has persistent hoarseness that has severe I recommended that he follow up with me. He understands. Assessment & Plan (05/22/2024 7:16 PM CDT): I do not find anything worrisome on his laryngeal exam. Assessment & Plan (11/22/2023 6:57 PM CDT): I reassured him that everything looks okay. He has some mild vocal cord edema which is causing the hoarseness. No need for further intervention. See him in 6 months. 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 (Primary Dx); Hyperlipidemia LDL goal <70; Essential hypertension; S/P TAVR (transcatheter aortic valve replacement); Atypical atrial flutter (HCC) 12/20/2024 Telephone [facility] Cardiology [address] [place] [address] Agustin Portillo MD RASHI/CV 12/13/2024 9:15 AM CDT Ancillary Procedure [facility] Cardiology [address] [facility] [address] [place] [address] S/P TAVR (transcatheter aortic valve replacement) 12/13/2024 Results Follow-Up [facility] Cardiology [address] [facility] [address] [place] [address] Agustin Portillo MD Transthoracic Echo (TTE) Complete W Doppler/CF 11/21/2024 9:45 AM CDT Office Visit [facility] Otolaryngology [address] [place] [address] Shan Robles MD 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 (HCC) (Primary Dx); Hoarseness from Last 3 Months Immunizations Immunization Administration [...] PM CDT Legal Sex Male 4:04 AM SECURITY AND PRIVACY CONSULTANT Gender Identity Male 06/11/2018 5:06 PM CDT Sexual Orientation Straight 06/11/2018 5: 06 PM CDT Obstetrics History Last Filed Vital Signs Vital Sign Reading Time Taken Comments Blood Pressure 110/56 12/20/2024 2:59 PM CDT Pulse 84 12/20/2024 2:59 PM CDT Temperature 37.1 C (98.7 F) 07/17/2021 11:19 AM CDT Respiratory Rate 20 11/21/2024 10:05 AM CDT Oxygen Saturation 98% 12/20/2024 2:59 PM CDT Inhaled Oxygen Concentration - - Weight 99.3 kg (219 lb) 12/20/2024 2:59 PM CDT Height 172.7 cm (5' 8) 12/20/2024 2:59 PM CDT Body Mass Index 33.3 12/20/2024 2:59 PM CDT Plan of Treatment Health Maintenance Due Date Last Done Comments Colon Cancer Screening-Colonoscopy 1950 Depression Screening 1950 Hepatitis B Screening 1969 Abdominal Aortic Aneurysm (A AA) Screen 02/14/2016 Well Visit 65+ 02/14/2016 DTaP/Tdap/Td Vaccine (2 - Td or Tdap) 02/16/2022 02/17/2012 Fall Risk Assessment 07/17/2022 07/17/2021 Covid-19 Vaccine (4 - 2024-2 6 season) 2024 01/20/2021, 06/02/2020, 04/30/2020 Influenza Vaccine (#1) 2024 1, 12/04/2019, 12/19/2018, Additional history exists Zoster Vaccine Completed 04/04/2018, 11/21/2017 Pneumococcal vaccine 65+ Completed 019, 05/12/2017, 02/10/2011 Hepatitis C Screening Completed 07/16/2021 Medical Devices Implanted Type Area Restaurant Managing Partner Device Identifier Shelf Expiration Date Model / Serial / Lot Valve Crimper [id number] - [id number] - [id number] Implanted:Qty: 1 on 07/16/2021 by Jorge Ulloa MD at [facility] [employer] 10/19/2022 [id number] / [id number] / [employer] Device Clsr Perclose Prostyle Sut-Mediatd Closure-Repair Sys [id number] - [id number] Implanted:Qty: 1 on 07/16/2021 by Jorge Ulloa MD at [facility] 06/12/2023 [id number] / / [employer] Device Clsr Perclose Prostyle Sut-Mediatd Closure-Repair Sys [id number] - [id number] Implanted:Qty: 1 on 07/16/2021 by Jorge Ulloa MD at [facility] 06/12/2023 [id number] / / Procedures Procedure Name Priority Date/Time Associated Diagnosis Comments ELECTROCARDIOGRAM REPORT Routine 025 4:29 PM CDT 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 Atypical atrial flutter (HCC) TRANSTHORACIC ECHO (TTE) COMPLETE W DOPPLER/CF WO CONTRAST Routine 12/13/2024 10:28 AM CDT S/P TAVR (transcatheter aortic valve replacement) HEPATITIS C ANTIBODY Routine 07/16/2021 9:29 AM CDT from Last 3 Months or Most Recently Relevant to Health Maintenance Results * Electrocardiogram Report (12/20/2024 4:29 PM CDT) us Agustin Portillo MD ECG ORDERABLES Final Res ult * TRANSTHORACIC ECHO (TTE) COMPLETE W DOPPLER/CF WO CONTRAST (12/13/2024 10:28 AM CDT) EF Mod BP 56 % CONS SCIMAGE Anatomical Region Laterality Modality Ultrasound 12/13/2024 9:26 AM CDT Narrative 12/13/2024 10:51 AM CDT [facility] Cardiology [address] [facility] [address], [place] [address] [address] [facility] [address], [place] [address] P:[phone] P:[phone] Echocardiographic Report Patient Name: REBEKAH FRAZIER P : 1950 Study Date: 12/13/2024 9:26:43 AM Sex: M Clinical Document Improvement Educator: Doloers Carbajal)(CT), [facility] Location: [place] Ref Provider: KENDY DENIS Height(Cm): 173 BSA: 2.16 Weight(Kg): 97.1 Heart Rate: 107 BP: 104 / 52 Quality: Good Order Provider: KENDY DENIS PROCEDURES: Echocardiographic Report: Transthoracic echocardiogram with complete 2D, M-Mode, and color Doppler examination. With Strain Analysis. INDICATIONS: Z95.2 Presence of prosthetic heart valve. MEASUREMENTS: 2D/MM Value Range Doppler Value Range EF Mod BP 56 % [ 52 - 72 ] ELI Vmax 1.88 cm2 [ 2.00 - 4.00 ] LV GLS -9.92 % AV Mean PG 9 mmHg LVIDd 2D 5.60 cm [ 4.20 - 5.80 ] AV Peak Jb 1.77 m/s [ 1.00 - 1.70 ] LVIDs 2D 3.75 cm [ 2.50 - 4.00 ] AV Peak PG 13 mmHg LVPWd 2D 1.22 cm [ 0.60 - 1.00 ] AV VTI 34.96 cm IVSd 2D 1.35 cm [ 0.60 - 1.00 ] LVOT Diam 2.05 cm [ 1.70 - 2.10 ] AoR Diam 2D 4.05 cm [ 3.10 - 3.70 ] LVOT Peak Jb 1.02 m/s [ 0.70 - 1.10 ] LA Volume 56.30 ml [ 18.00 - 58.00 ] LVOT VTI 19.83 cm LA Volume Index 26 cc/m2 [ 16 - 28 ] MV E Peak Jb 1.42 m/s [ 0.60 - 1.30 ] RA Volume 48.43 ml MV A Peak Jb 0.64 m/s [ 1.00 - 1.20 ] MV Decel Time 156 msec [ 104 - 258 ] PV Peak Jb 0.91 m/s [ 0.40 - 0.80 ] TR Peak Jb 2.79 m/s [ 1.00 - 2.80 ] TR Peak PG 31 mmHg RVSP 36.00 mmHg [ 10.00 - 36.00 ] Lateral E` 0.11 m/s [ 0.10 - 0.15 ] Septal E` 0.06 m/s [ 0.08 - 0.15 ] E` 0.08 m/s E/E` 17 Tapse 2.08 cm [ 1.71 - 5.00 ] 2D/MM Value Range Doppler Value Range - FINDINGS: Interpretation Site: Exam was interpreted at [facility]. Left Ventricle: Normal left ventricular systolic function. No focal wall motion abnormalities. Normal left ventricular size. Moderate concentric left ventricular hypertrophy. There is restrictive diastolic dysfunction Grade III to IV. Ejection fraction is measured at 56 %. Global Longitudinal Strain is -10 %. GLS is abnormal. Right Ventricle: Normal right ventricular size. Normal right ventricular systolic function. Left Atrium: There is mild enlargement of left atrium. Right Atrium: The right atrium is normal in size. Atrial Septum: Normal atrial septum. Mitral Valve: Normal appearance of the mitral valve. Mild mitral valve regurgitation. There is no hemodynamically significant mitral stenosis by Doppler. Aortic Valve: No evidence of hemodynamically significant aortic stenosis by Doppler. Mean gradient of 9.0 mmHg. Valve area of 1.9 cm2. No aortic regurgitation. Normal appearing aortic valve prosthesis. Gradients normal for valve type and size. Tricuspid Valve: Normal appearance of the tricuspid valve. Estimated peak RVSP is 36 mmHg. Mild tricuspid regurgitation. Pulmonic Valve: Normal appearance of the pulmonic valve. No evidence of pulmonic regurgitation. Pericardium: Normal pericardium with no significant pericardial effusion. Aorta: Sinus of Valsalva is normal. IVC: Normal size and normal respiratory collapse consistent with normal right atrial pressure (<5 mmHg). Pulmonary Artery: Normal pulmonary artery size. CONCLUSIONS: Normal left ventricular systolic function. No focal wall motion abnormalities. Normal left ventricular size. Moderate concentric left ventricular hypertrophy. There is restrictive diastolic dysfunction Grade III to IV. Ejection fraction is measured at 56 %. Global Longitudinal Strain is -10 %. GLS is abnormal. Mild mitral valve regurgitation. No evidence of hemodynamically significant aortic stenosis by Doppler. Mean gradient of 9.0 mmHg. Valve area of 1.9 cm2. No aortic regurgitation. Normal appearing aortic valve prosthesis. Gradients normal for valve type and size. Estimated peak RVSP is 36 mmHg. Mild tricuspid regurgitation. Electronically Signed By: Dr. Swati Magaña [facility] 12/13/2024 10:50:19 AM CDT Procedure Note Swati Magaña MD - 12/13/2024 [facility] Cardiology [address] [facility] [address], [place] [address] [address] [facility] [address], [place] [address] P:[phone] P:[phone] Echocardiographic Report Patient Name: REBEKAH FRAZIER P : 1950 Study Date: 12/13/2024 9:26:43 AM Sex: M Clinical Document Improvement Educator: Dolores Carbajal)(CT), [facility] Location: [facility] Provider: KENDY DENIS Height(Cm): 173 BSA: 2.16 Weight(Kg): 97.1 Heart Rate: 107 BP: 104 / 52 Quality: Good Order Provider: KENDY DENIS PROCEDURES: Echocardiographic Report: Transthoracic echocardiogram with complete 2D, M-Mode, and color Dopplerexamination. With Strain Analysis. INDICATIONS: Z95.2 Presence of prosthetic heart valve. MEASUREMENTS: 2D/MM Value Range Doppler ValueRange EF Mod BP 56 % [ 52 - 72 ] ELI Vmax 1.88cm2 [ 2.00 - 4.00 ] LV GLS -9.92 % AV Mean PG 9mmHg LVIDd 2D 5.60 cm [ 4.20 - 5.80 ] AV Peak Jb 1.77m/s [ 1.00 - 1.70 ] LVIDs 2D 3.75 cm [ 2.50 - 4.00 ] AV Peak PG 13mmHg LVPWd 2D 1.22 cm [ 0.60 - 1.00 ] AV VTI 34.96cm IVSd 2D 1.35 cm [ 0.60 - 1.00 ] LVOT Diam 2.05cm [ 1.70 - 2.10 ] AoR Diam 2D 4.05 cm [ 3.10 - 3.70 ] LVOT Peak Jb 1.02m/s [ 0.70 - 1.10 ] LA Volume 56.30 ml [ 18.00 - 58.00 ] LVOT VTI 19.83cm LA Volume Index 26 cc/m2 [ 16 - 28 ] MV E Peak Jb 1.42m/s [ 0.60 - 1.30 ] RA Volume 48.43 ml MV A Peak Jb 0.64m/s [ 1.00 - 1.20 ] MV Decel Time 156 msec [ 104 - 258 ] PV Peak Jb 0.91 m/s [ 0.40 - 0.80 ] TR Peak Jb 2.79 m/s [ 1.00 - 2.80 ] TR Peak PG 31 mmHg RVSP 36.00 mmHg [ 10.00 - 36.00 ] Lateral E` 0.11 m/s [ 0.10 - 0.15 ] Septal E` 0.06 m/s [ 0.08 - 0.15 ] E` 0.08 m/s E/E` 17 Tapse 2.08 cm [ 1.71 - 5.00 ] 2D/MM Value Range Doppler ValueRange - FINDINGS: Interpretation Site: Exam was interpreted at [facility]. Left Ventricle: Normal left ventricular systolic function. No focal wall motionabnormalities. Normal left ventricular size. Moderate concentric left ventricular hypertrophy.There is restrictive diastolic dysfunction Grade III to IV. Ejection fraction ismeasured at 56 %. Global Longitudinal Strain is -10 %. GLS is abnormal. Right Ventricle: Normal right ventricular size. Normal right ventricular systolicfunction. Left Atrium: There is mild enlargement of left atrium. Right Atrium: The right atrium is normal in size. Atrial Septum: Normal atrial septum. Mitral Valve: Normal appearance of the mitral valve. Mild mitral valve regurgitation.There is no hemodynamically significant mitral stenosis by Doppler. Aortic Valve: No evidence of hemodynamically significant aortic stenosis by Doppler.Mean gradient of 9.0 mmHg. Valve area of 1.9 cm2. No aortic regurgitation. Normal appearingaortic valve prosthesis. Gradients normal for valve type and size. Tricuspid Valve: Normal appearance of the tricuspid valve. Estimated peak RVSP is 36 mmHg.Mild tricuspid regurgitation. Pulmonic Valve: Normal appearance of the pulmonic valve. No evidence of pulmonicregurgitation. Pericardium: Normal pericardium with no significant pericardial effusion. Aorta: Sinus of Valsalva is normal. IVC: Normal size and normal respiratory collapse consistent with normal rightatrial pressure (<5 mmHg). Pulmonary Artery: Normal pulmonary artery size. CONCLUSIONS: Normal left ventricular systolic function. No focal wall motionabnormalities. Normal left ventricular size. Moderate concentric left ventricular hypertrophy.There is restrictive diastolic dysfunction Grade III to IV. Ejection fraction ismeasured at 56 %. Global Longitudinal Strain is -10 %. GLS is abnormal. Mild mitral valve regurgitation. No evidence of hemodynamically significant aortic stenosis by Doppler.Mean gradient of 9.0 mmHg. Valve area of 1.9 cm2. No aortic regurgitation. Normal appearingaortic valve prosthesis. Gradients normal for valve type and size. Estimated peak RVSP is 36 mmHg. Mild tricuspid regurgitation. Electronically Signed By: Dr. Swati Magaña [facility] 12/13/2024 10:50:19 AM CDT Kendy Saida Marcell SAXOPHONE ASSEMBLER CV ECHO PROCEDURES Final Result * Hepatitis C antibody (07/16/2021 9:29 AM [...] - GENERAL ORD ERABLES Final Result [address] [id number] [address] Department [place] [address] from Last 3 Months or Most Recently Relevant to Health Maintenance Insurance AETNA MEDICARE GOLD AETNA MEDICARE GOLD AETNA MEDICARE GOLD Care Teams Hub Borer Relationship Specialty Start Date End Date Ann-Marie Cruz MD PCP - General 06/11/16 Ann-Marie Cruz MD 06/11/16
--- OUTSIDE RECORDS SUMMARY | 2024-12-28 00:42 | XMS_ITS | Clinical Summary ---
Author Organization [facility] Address [address] [address] Phone Care Team Providers Care Popcorn Attendant Name Role Phone Ann-Marie Cruz MD Primary Care Provider [phone] Medications polyethylene glycol (MIRALAX) Powder Mix the [...] 2001 Zoster Immunization (1 of 2) 2001 Medicare Initial AWV [id number] 03/14/2020 Colonoscopy 08/01/2023 07/31/2020, 04/19/2017 Colorectal Cancer Screening 08/01/2023 Influenza Immunization (#1) 2024 SARS-COV-2 Immunization (1 - 2023-25 season) 2024 Respiratory Syncytial Virus (RSV) Immunization (Adult) [...] Maintenance Insurance MEDICARE C AETNA Care Teams Popcorn Attendant Relationship Specialty Start Date End Date Ann-Marie Cruz MD [address] [place] [address] PCP - General Family Medicine 12/14/16
--- OUTSIDE RECORDS SUMMARY | 2024-12-28 00:42 | XMS_ITS | Clinical Summary ---
Author Organization [facility] Eulogio Hurley Address [address] [place] [address] Care Team Providers Care Radio Board Operator Announcer Name Role Phone Ann-Marie Cruz MD Primary Care Provider [phone] Allergies Active Allergy Reactions Criticality Noted Date Comments Chlordiazepoxide Hallucination Medium 10/15/2019 Hallucinations Chlordiazepoxide-Clidin ium Other (See Comments) Medium 05/10/2023 Reaction: Hallucinations, Methscopolamine Hallucination Medium 10/15/2019 Hallucinations Niacin Other (See Comments),Rash Low 10/15/2019 Flushing Jfuzkzw-Vsg-Hpj Reductase Inhibitors Muscle Pain Medium 02/20/2020 Intolerance [...] injection every 2 weeks. Active Vit C-Vit E-Ejgtsu-RlVq-L utein (PRESERVISION) 226-90-0.8-5 mg Capsule Take 1 Capsule by mouth daily. Active escitalopram oxalate (LEXAPRO) 10 mg tablet Take 0.5 Tablets by mouth daily. 5 Active lisinopriL (PRINIVIL) 20 mg tablet Take 20 mg by mouth daily. Active Mounjaro 5 mg/0.5 mL Pen Injector Inject 5 mg by subcutaneous injection every 7 days. 5 Active Active Problems No known active problems Encounters Date Type Department Care Team Description 11/27/2024 External Device Data STL ABSTRACTION Provider, Abstract 10/30/2024 External Device Data STL ABSTRACTION Provider, Abstract 10/18/2024 10:15 AM CDT Office Visit [facility]ology [address] [place] [address] Som Wolfe MD Chronic anemia (Primary Dx) 10/17/2024 Orders Only [facility] - [address] [place] [address] Som Wolfe MD 10/16/2024 External Device Data STL ABSTRACTION Provider, [...] on file Legal Sex Male 4:09 PM MINING CAPTAIN Gender Identity Not on file Sexual Orientation Not on file Last Filed Vital Signs Vital Sign Reading Time Taken Comments Blood Pressure 105/61 10/18/2024 10:24 AM CDT Pulse 83 10/18/2024 10:24 AM CDT Temperature 36.2 C (97.2 F) 10/18/2024 10:24 AM CDT Respiratory Rate 15 10/18/2024 10:24 AM CDT Oxygen Saturation 98% 10/18/2024 10:24 AM CDT Inhaled Oxygen Concentration - - Weight 101.6 kg (224 lb) 10/18/2024 10:24 AM CDT Height 172.7 cm (5' 8) 05/10/2023 10:38 AM MINING CAPTAIN Body Mass Index 34.06 05/10/2023 10:38 AM MINING CAPTAIN Plan of Treatment Upcoming Encounters Date Type Department Care Team (Late st Contact Info) Description 10/21/2025 11:15 AM CDT Office Visit [facility] Oncology and Hematology - [place] [address] [facility] [address] [place] [address] Som Wolfe MD [address] [facility] [address] [place] [address] Health Maintenance Due Date Last Done Comments DTAP/TDAP/TD VACCINES (1 - Tdap) 1970 PNEUMOCOCCAL VACCINE 50+ YEARS (1 of 2 - PCV) 02/13/19 70 FIT-DNA Q 3 years 02/14/1996 FIT/FOBT Q 1 year 02/14/1996 Flex Sig/CT Colonography Q 5 years 02/14/1996 ZOSTER VACCINE (1 of 2) 2001 Abdominal Aortic Aneurysm (AAA) Screening 02/14/2016 INFLUENZA VACCINE (#1) 2024 12/12/2015 RSV VACCINE (60+ or ) (1 - 1-dose 75+ series) 2026 COLORECTAL SCREENING 07/31/2030 07/31/2020 Colorectal Cancer Screening 07/31/2030 Procedures Procedure Name Priority Date/Time Associated Diagnosis Comments BASIC METABOLIC PANEL Routine 10/17/2024 12:46 PM CDT from Last 3 Months Results * BASIC METABOLIC PANEL (10/17/2024 12:46 PM CDT) Blood Som Wolfe MD CHEMISTRY ORDERABLES Final Resu lt from Last 3 Months Insurance AETNA O [facility] Address: [facility] [id number] [place] [address] Care Teams Radio Board Operator Announcer Relationship Specialty Start Date End Date Ann-Marie Cruz MD [address] [place] [address] PCP - General Family Practice 05/10/23
--- OUTSIDE RECORDS SUMMARY | 2024-12-28 00:42 | XMS_ITS | Encounter Summary ---
Author Organization [facility] Address [address] [facility] [address] [place] [address] Care Team Providers Care Senior Android Software Engineer Name Role Phone Ann-Marie Cruz MD Primary Care Provider [phone] Ann-Marie Cruz MD Primary Care Provider [phone] Ann-Marie Cruz MD Unavailable [phone] Ann-Marie Cruz MD Primary Care Provider [phone] Encounter Details Date Type Department Care Team (Late st Contact Info) Description 04/28/2016 Orders Only [facility] ProviderAbelardo MD [address] [place] [id number] Social History Tobacco Use Types Packs/Day Years Used Date Smoking Tobacco: Never Alcohol Use Standard Drinks/Week Comments No 0 (1 standard drink = 0.6 oz pur e alcohol) Sex and Gender Information Value Date Recorded Sex Assigned at Male 06/11/2018 5:06 PM CDT Legal Sex Male 4:04 AM POURED PIPE MAKER Gender Identity Male 06/11/2018 5:06 PM [...] on filedocumented in this encounter Care Teams Senior Android Software Engineer Relationship Specialty Start Date End Date Ann-Marie Cruz MD PCP - General 04/30/16 06/10/16 Ann-Marie Cruz MD PCP - General 06/11/16 Ann-Marie Cruz MD PCP - General 07/16/15 04/29/16 Ann-Marie Cruz MD 06/11/16 documented as of this encounter
--- NOTE | 2024-12-28 07:00 | ECG_ITS ---
Test Date: 2024-12-28 07:25:31 Measurements Intervals Dime Box Rate: 103 P: 0 UT: 0 QRS: -34 QRSD: 168 T: 2 QT: 397 QTc: 521 Interpretive Statements ATRIAL FLUTTER/TACHYCARDIA WITH RAPID VENTRICULAR RESPONSE RIGHT BUNDLE BRANCH BLOCK INFERIOR INFARCT, AGE INDETERMINATE ABNORMAL ECG No previous ECG available for comparison Electronically Signed On 12-28-2024 07:40:44 CDT by Param Puente D.O.
[2024-12-28 08:19] LABS: Anion Gap 8 mmol/L (4-12); Blood Urea Nitrogen 22 mg/dL (9-20); Calcium 8.9 mg/dL (8.4-10.2); Carbon Dioxide 24 mmol/L (22-30); Chloride 103 mmol/L (98-107); Estimated CRCL calculation 80 ml/min; Estimated Glomerular Filt Rate > 60; Glucose 97 mg/dL (65-110); Magnesium 2.0 mg/dL (1.6-2.3); Potassium 3.8 mmol/L (3.4-5.0); Sodium 135 mmol/L (137-145)
--- NOTE | 2024-12-28 08:30 | ECG_ITS ---
Test Date: 2024-12-28 09:00:04 Measurements Intervals [place] Rate: 70 P: 75 NH: 214 QRS: -22 QRSD: 173 T: 6 QT: 428 QTc: 463 Interpretive Statements SINUS RHYTHM WITH FIRST DEGREE AV BLOCK RIGHT BUNDLE BRANCH BLOCK INFERIOR INFARCT, AGE INDETERMINATE ABNORMAL ECG Compared to ECG 12/28/2024 07:25:31 Atrial flutter no longer present Electronically Signed On 12-28-2024 10:06:02 CDT by Param Puente D.O.
--- NOTE | 2024-12-28 08:44 | WPDMODSED ---
Moderate Sedation Note-Pt Data Patient Data Allergies Allergy/AdvReac Type Severity Reaction Status Date / Time niacin AdvReac Severe Flushing Verified 12/27/24 14:15 clidinium (From Librax (with AdvReac Mild Hallucinati Verified 12/27/24 14:15 clidinium)) ng Wkoqpqp-OLC-KbI Reductase AdvReac Mild Muscle Pain Verified 12/27/24 14:15 Inhibitor (Lopossd-Lfi-Cms Reductase Inhibitor) Home Medications ?Medication ?Instructions ?Recorded ?Confirmed ?Type aspirin 81 mg tablet,delayed 81 mg PO DAILY 01/23/19 12/27/24 History release (Adult Low Dose Aspirin) finasteride 5 mg tablet 5 mg PO DAILY 04/16/19 12/27/24 History loratadine 10 mg tablet (Allergy 10 mg PO DAILY 10/18/19 12/27/24 History Relief (loratadine)) metoprolol tartrate 25 mg tablet 25 mg PO BID 10/18/19 12/27/24 History vit C 250 mg-vit E 90 mg-zinc 40 1 tablet PO BID 06/09/20 12/27/24 History mg-copper 1 ua-bigyhv-inanke capsule (PreserVision AREDS-2) docusate sodium 100 mg capsule 100 mg PO BID PRN constipation #60 10/29/21 12/27/24 Rx (Colace) caps icosapent ethyl 1 gram capsule 2 g PO BID 07/20/22 12/27/24 History (Vascepa) ferrous gluconate 324 mg (37.5 mg 324 mg PO DAILY #90 tabs 11/02/22 12/27/24 Rx iron) tablet furosemide 20 mg tablet 20 mg PO BID 11/04/22 12/27/24 History potassium chloride 20 mEq oral 20 meq PO ONCE 11/04/22 12/27/24 History packet (Klor-Con) rsv vaccine #1 ea 12/01/22 10/12/24 Rx nebulizer #1 ea 04/20/23 10/12/24 Rx hydrocolloid dressing 4 X 4 #5 ea 09/14/23 10/12/24 Rx (DuoDERM CGF Dressing) doxycycline monohydrate 100 mg See Rx Instructions .Route 09/07/24 12/27/24 Rx tablet .COMPLEX #180 tabs evolocumab 140 mg/mL subcutaneous 140 mg subcut .COMPLEX 10/12/24 12/27/24 History pen injector (Tomas Keith) levothyroxine 88 mcg tablet 88 mcg PO DAILY 10/12/24 12/27/24 History (Synthroid) lisinopril 20 mg tablet 20 mg PO DAILY 10/12/24 12/27/24 History metolazone 2.5 mg tablet 2.5 mg PO WEEKLY 10/12/24 12/27/24 History metronidazole 1 % topical gel 1 applic topical DAILY 10/12/24 12/27/24 History (Metrogel) escitalopram oxalate 10 mg tablet 10 mg PO DAILY #30 tabs 11/19/24 12/27/24 Rx apixaban 5 mg tablet (Eliquis) 5 mg PO Q12H 12/27/24 12/27/24 History magnesium oxide 500 mg capsule 500 mg PO DAILY 12/27/24 12/27/24 History tirzepatide 10 mg/0.5 mL 10 mg (0.5 mL) subcut WEEKLY #2 mL 12/27/24 12/27/24 Rx subcutaneous pen injector (Lenka) vitamins A,C,C-wgbk-fdkhrt 2,148 1 tablet PO BID 12/27/24 12/27/24 History mcg-113 mg-45 mg-17.4 mg tablet (Eye Multivitamin) Current Medications: Active Medications Fentanyl Citrate (Fentanyl Citrate Inj (*Crx) 100 Mcg/2 Ml Vial) 100 mcg IV PUSH ONCE PRN PRN Reason: Cardioversion/RASHI Sodium Chloride (Normal Saline Iv) 1,000 mls @ 30 mls/hr IV CONT .Q24H SACHIN Midazolam HCl (Midazolam Hcl (*Crx) 2 Mg/2 Ml Vial) 2 mg IV PUSH Q5M PRN PRN Reason: Cardioversion/RASHI Propofol (Propofol Iv Emulsion 200 Mg/20 Ml Vial) 100 mg IV PUSH ONCE PRN PRN Reason: Cardioversion/RASHI Sedation/Anesthesia: No previous sedation/anesthesia problems (including family history). [facility] Past Medical History Medical History Edema Stasis dermatitis Vocal cord cancer RTX AVM (arteriovenous malformation) of colon Colonic polyp colonoscopy 2017 Complex sleep apnea syndrome BPH (benign prostatic hyperplasia) Hypercholesterolemia CAD (coronary artery disease) Hypothyroidism Sleep apnea wears CPAP [place]-inhibitor cough Acne rosacea Anxiety Aortic valve stenosis 1.2 cm2 Atherosclerotic heart disease of [place] coronary artery without angina pectoris Hypertension, essential, benign History of seborrheic keratosis History of actinic keratoses Surgical History Surgical History Hx of cardiac catheterization S/P CABG (coronary artery bypass graft) Family History Family History Other Adopted Social History Social History Smoking packs per day: 2 Smoking cigarettes per day: 40.0 Years smoked: 32 Smoking pack-years: 64.00 Smoking status: Former smoker Tobacco type: cigarettes Second hand tobacco smoke exposure: No Smoking end date: 10/27/01 Additional smoking assessment comments: Quit 18 years ago Alcohol intake: never Substance use: never Substance use type: does not use Do You Feel Safe in your Home?: Yes Lack of Transportation: No Lack of Food: Never True Current Housing: Decline to Answer Concerned About Future Housing: Decline to Answer Difficulty Paying Gas/Electric Bills: Decline to Answer Difficulty Paying for Meds: Decline to Answer Currently Unemployed: Decline to Answer Education: Decline to Answer Difficulty w/ Childcare or Family Care: Decline to Answer Living arrangements: with family Occupation/Education: retired Gender identity (if verbalized by the patient): Male Sexual Orientation (if Verbalized by the Patient): Straight or Heterosexual Spiritual care concerns: No Agree to blood products: Yes Mod Sed Physical Exam Physical Exam Pre Procedural Exam: Normal: Appearance and Airway and Variation: Heart Rhythm (Irregular rhythm) Hours since solid foods: 8 Hours since liquid intake: 8 Mallampati Classification: class II Internal Medicine - PN: Obj Da Vital Signs Vital Signs: Vital Signs - 24 hr 12/28/24 07:29 Temperature 36.2 C L Pulse Rate 113 H Respiratory Rate 15 Blood Pressure 121/66 Pulse Oximetry 100 Oxygen Delivery Room Air Meds/Results Medications: Active Medications Generic Name Dose Route Start Last Admin Trade Name Freq PRN Reason Stop Dose Admin Fentanyl Citrate 100 mcg 12/28/24 08:00 Fentanyl Citrate Inj (*Crx) 100 Mcg/2 Ml Vial IV PUSH ONCE PRN Cardioversion/RASHI Sodium Chloride 1,000 mls @ 30 mls/hr 12/28/24 08:00 Normal Saline Iv IV CONT .Q24H SACHIN Midazolam HCl 2 mg 12/28/24 08:00 Midazolam Hcl (*Crx) 2 Mg/2 Ml Vial IV PUSH Q5M PRN Cardioversion/RASHI Propofol 100 mg 12/28/24 08:00 Propofol Iv Emulsion 200 Mg/20 Ml Vial IV PUSH ONCE PRN Cardioversion/RASHI Labs 12/28/24 07:54 Labs: Laboratory Results - last 24 hr 12/28/24 07:54 Sodium 135 L Potassium 3.8 Chloride 103 Carbon Dioxide 24 Anion Gap 8 BUN 22 H Creatinine 0.80 Estim Creat Clear Calc 80 Estimated GFR > 60 Glucose 97 Calcium 8.9 Magnesium 2.0 ASA Classification/Sedation ASA Classification/Sedation ASA Class: II Emergent: No Risks: Risks, benefits and alternatives explained and patient/family accepted plan for sedation. Patient re-evaluated immediately prior to sedation.
--- NOTE | 2024-12-28 08:45 | WPDHPUPDATE1 ---
History and Physical Update Update Date/Time: 12/28/24 08:45 History and Physical has been reviewed, including an updated exam of the patient. There are NO changes in the patient's condition. Risks, benefits, and alternatives have been discussed and questions answered. Patient agrees to proceed with procedure.
--- NOTE | 2024-12-28 08:58 | WPDTECDV ---
SOLE with Cardioversion Date of procedure: 12/28/24 Diagnosis: Atrial flutter Indications: Atrial flutter Description of Procedure: DATE OF PROCEDURE: 12/28/2024 INDICATION FOR PROCEDURE: Atrial flutter PROCEDURES PERFORMED: 1. Transesophageal echocardiogram (SOLE) 2. SOLE guided successful synchronized DC cardioversion with yazidism of sinus rhythm 2. Moderate sedation -CPT 08467 SEDATION: Propofol 60 mg IV in 2 divided doses; start time 0848 minutes, stop time 0902 minutes; total [id number] time 14 minutes; Tonja Forman RN was trained observer for the moderate sedation. PROCEDURE: Informed consent was taken prior to the procedure. After adequate sedation, sole probe was advanced without difficulty. Multiplanar Transesophageal echocardiographic was performed with and without color flow and Doppler assessment. No immediate TA related complications. Findings: Left ventricle: Normal size, mild LVH, variable contractility due to atrial flutter, normal overall LV systolic function, ejection fraction about 55%. Right ventricle: Normal size and systolic function Left atrium: Mild enlargement. No definite left atrial appendage thrombus. Decreased left atrial appendage emptying velocities. Right atrium: Normal size Interatrial septum: No evidence of shunt on color Doppler Mitral valve: Normal structure, mild MR. Aortic valve: Status post TAVR using 29 mm Michel Iram valve. Normal-appearing bioprosthesis. Tricuspid valve: Normal structure, unable to assess RVSP due to inadequate TR jet. Pulmonic valve: Normal Aortic root: Normal size Pericardium: No significant pericardial effusion DC cardioversion: Transcutaneous pads were placed in the right parasternal and left paravertebral positions. After adequate conscious sedation with IV propofol, and after ruling out left atrial appendage thrombus, synchronized DC cardioversion was performed with 200 joules x with yazidism of sinus rhythm. Postprocedure EKG showed sinus rhythm with RBBB. Patient tolerated procedure well without any immediate procedure related complications. Conclusions: 1. Normal LV size, mild LVH, vision fraction about 55%. 2. No evidence of left atrial appendage thrombus. 3. Mild MR. 4. Status post TAVR using 29 mm Michel Iram valve. Normal-appearing bioprosthesis. 5. Successful synchronized DC cardioversion for atrial flutter with yazidism of sinus rhythm. RECOMMENDATIONS: Continue anticoagulation with apixaban in addition to other medications. Consider electrophysiology evaluation if recurrent arrhythmia. Outpatient follow-up with Dr. Portillo.
[2024-12-28] MEDS: PROPOFOL IV EMULSION 200 MG/20 ML VIAL 60 MG IV PUSH (09:30)
== END 2024-12-28 10:31 | disposition home or self-care (01) ==
PROVIDERS: PCP Family Medicine Adolescent Medicine; Visit Provider Internal Medicine Cardiovascular Disease
PROC: (CPT 93312; principal; 2024-12-28 08:30)
PROC: 5A2204Z Restoration of Cardiac Rhythm, Single (ICD-10-PCS; 2024-12-28 08:30)
DX: I48.92 Unspecified atrial flutter (principal); I34.0 Nonrheumatic mitral (valve) insufficiency; I25.10 Atherosclerotic heart disease of native coronary artery without angina pectoris; I45.10 Unspecified right bundle-branch block; I11.9 Hypertensive heart disease without heart failure; Z95.2 Presence of prosthetic heart valve
CPT/HCPCS: 36415; 80048; 83735; 92960; 93312; 93320; 93325; J2250; J2704; J3010; J7030